=== PATIENT | female | born 1955 | race Caucasian/White ===

== ENCOUNTER → 2016-10-24 | Outpatient (CLI) | payer BC ==
[~2016-10-24] MED LIST: ALBU1AER9 INH; AMIT25TA9 PO; AMIT50TA3 PO; AMT/50 PO; AMT50 PO; BUPR100T13 PO; BUPR100T8 PO; CPR500 PO; ENAL10TA9 PO; ENALAPRIL HCTZ PO; ENALAPRIL/HCTZ PO; ESOM1CAP34 PO; FLUO1TAB12 PO; FLUO40CA8 PO; LEVO125T5 PO; LEVO125T72 PO; MTR500 PO; MULT-506 PO; OMEP40CA PO; PHEN10CA3 PO; PROAIR INH; ROPI0.25 PO; ROPI0.5T15 PO; RQP25 PO; TRAM-10 PO
--- NOTE | 2016-10-24 12:17 | DIAGNOSTIC IMAGING REPORT ---
LEFT HAND 3 VIEWS CLINICAL HISTORY: Left thumb pain. No reported history of trauma. FINDINGS: 3 views of the left hand are obtained. No prior studies are available for comparison at the time of dictation. The skeletal structures are osteopenic. No fracture is seen. Mild arthritic change is present at the first carpometacarpal and metacarpophalangeal joints. Minimal osteoarthritic changes also seen at the second distal interphalangeal joint. No bony erosion is identified. The joint spaces are otherwise preserved. The overlying soft tissues are within normal limits. IMPRESSION: 1. No acute bony abnormality is seen in the left hand. 2. Osteopenia and mild arthritic change as above. Electronically signed by: Giorgio Watson M.D. 10/24/2016 12:15 PM Dictated Date/Time: 10/24/2016 12:14 PM
[2016-10-24 13:02] LABS: RHEUMATOID FACTOR < 10.0 U/mL (0-15)
[2016-10-29 02:28] LABS: ANTI-CENTROMERE AB <1.0 NEG AI (<1.0 NEG); ANTI-SS-A <1.0 NEG AI (<1.0 NEG); ANTI-SS-B <1.0 NEG AI (<1.0 NEG); CYCLIC CITRULLINATED PEPT IGG <16 UNITS (<20); DNA ds CRITHIDIA NEGATIVE (NEGATIVE); Sm Antibody <1.0 NEG AI (<1.0 NEG)
== END | disposition home or self-care (01) ==
LOC: C.RAD1850 11:03
PROVIDERS: ATTEND Internal Medicine Rheumatology
DX: R76.8 Other specified abnormal immunological findings in serum (principal); M79.645 Pain in left finger(s); M35.9 Systemic involvement of connective tissue, unspecified

== ENCOUNTER 2016-11-16 21:46 | Inpatient (IN) | payer BC, OTHER ==
[~2016-11-16] VITALS: Ht 162.6 cm; Wt 148.0 kg
[~2016-11-16 21:46] MED LIST changes: -AMIT25TA9 PO; -AMIT50TA3 PO; -AMT/50 PO; -BUPR100T13 PO; -CPR500 PO; -ENAL10TA9 PO; -ENALAPRIL HCTZ PO; -ESOM1CAP34 PO; -FLUO1TAB12 PO; -LEVO125T72 PO; -MTR500 PO; -PHEN10CA3 PO; -PROAIR INH; -ROPI0.25 PO; -RQP25 PO
[2016-11-16] MEDS ORDERED: ESOM1CAP34 PO (22:40)
[2016-11-16] MEDS ORDERED: RQP25 PO (22:40)
[2016-11-16] MEDS ORDERED: PHEN10CA3 PO (22:40)
[2016-11-16] MEDS ORDERED: PROAIR INH (22:40)
[2016-11-16] MEDS ORDERED: FLUO1TAB12 PO (22:40)
[2016-11-16] MEDS ORDERED: AMIT50TA3 PO (22:40)
[2016-11-16] MEDS ORDERED: BUPR100T13 PO (22:40)
[2016-11-16] MEDS ORDERED: ENAL10TA9 PO (22:40)
[2016-11-16] MEDS ORDERED: DiphenhydrAMINE HCL 50 MG/ML VIAL IV STA (22:43)
[2016-11-16] MEDS ORDERED: METHYLPREDNISOLONE 125 MG VIAL IV STA (22:43)
[2016-11-16] MEDS ORDERED: SODIUM CHLORIDE 0.9% 1000ML 1,000 ML, SODIUM CHLORIDE 0.9% 1000ML 1,000 ML IV ONE (22:45)
[2016-11-16] MEDS ORDERED: ROPI0.25 PO (22:56)
[2016-11-16] MEDS ORDERED: LEVO125T72 PO (22:59)
[2016-11-16 23:06] LABS: BASO % 0.2 %; BASO ABS # 0.03 K/uL (0-0.2); COMPLETE YES; EOS % 0.1 %; IG% 0.6 %; LYMPH % 15.1 %; LYMPH ABS # 2.81 K/uL (1.2-3.4); MEAN CELL VOLUME 89.9 fL (80-100); MEAN CORPUSCULAR HEMOGLOBIN 29.8 pg (25-34); MEAN CORPUSCULAR HGB CONC 33.1 g/dl (32-36); MEAN PLATELET VOLUME 9.1 fL (7.4-10.4); MONO % 6.1 %; NEUT % 77.9 %; PLATELET COUNT 370 K/uL (130-400); RED BLOOD COUNT 4.67 M/uL (4.2-5.4); WHITE BLOOD COUNT 18.65 K/uL (4.8-10.8)
[2016-11-16 23:20] LABS: URINE APPEARANCE TURBID (CLEAR); URINE COLOR DK YELLOW; URINE EPITHELIAL CELL AUTO >30 /lpf (0-5); URINE NITRITE NEG (NEG); URINE SPECIFIC GRAVITY 1.027 (1.000-1.030); UROBILINOGEN NEG (NEG); ZZUR CULT IF INDIC CLEAN CATCH YES
[2016-11-16 23:26] LABS: MANUAL MICROSCOPIC REQUIRED? NO; REVIEW REQ? YES; URINE BILIRUBIN NEG (NEG)
[2016-11-16 23:26] LABS: BUN/CREATININE RATIO 22.7 (10-20); CALCIUM 9.1 mg/dl (8.5-10.1); CREATININE 1.5 mg/dl (0.60-1.20); POTASSIUM 4.3 mmol/L (3.5-5.1)
[2016-11-16 23:28] LABS: ALB/GLOB RATIO 0.8 (0.9-2); C-REACTIVE PROTEIN 2.11 mg/dl (0-0.29)
[2016-11-16 23:35] LABS: URINE PATH CASTS 0-3 GRANULAR CASTS /lpf (0)
[2016-11-17] MEDS ORDERED: PANTOprazole INJ 40 MG in SYRINGE 0 ML IV ONE (01:15)
[2016-11-17] MEDS ORDERED: ONDANSETRON INJ 2 MG/ML 2 ML VIAL IV PRN (02:15)
--- NOTE | 2016-11-17 03:11 | History and Physical ---
History & Physical Date & Time of Service: November 17, 2016 at 03:00 Chief Complaint: Pain In Front And Back And Bleeding Primary Care Physician: RV. Felipe MD History of Present Illness Source: patient, spouse The patient is a 61-year-old female with a known history of intolerance of Gopi lettuce, which she reports typically causes her to have loose stools after she eats it and then that's resolved. This time however when she that lettuce at [facility], she had worsening abdominal cramping than usual, and when she made it home she initially had fecal urgency and then did have a bowel movement that was bloody and has had persistent lower pelvic and rectal pain since. Her previous issues with intolerance to this lettuce does not involve blood. She's had no fevers or chills, chest pain or shortness of breath, nausea or vomiting, blood in urine. Social History Smoking Status: Never Smoker Smokeless Tobacco Use: No Alcohol Use: none Drug Use: none Marital Status: Housing status: lives with family Occupational Status: retired Multi-Drug Resistant Organisms History of MDRO: No Allergies Coded Allergies: CI Pigment Blue 63 (Verified Allergy, Unknown, swelling of lips, 01/13/16) Doxycycline (Verified Allergy, Unknown, GI UPSET, 01/13/16) Per PCP note Duloxetine (Verified Allergy, Unknown, swelling, 01/13/16) Oxycodone (Verified Adverse Reaction, Mild, NAUSEA, 01/13/16) Home Medications Scheduled Amitriptyline Hcl (Amitriptyline Hcl), 50 MG PO HS Bupropion Hcl (Wellbutrin), 100 MG PO DAILY Enalapril Maleate & Hydrochlor (Enalapril Maleate/Hydroch), 1 TAB PO DAILY Esomeprazole Magnesium (Esomeprazole Magnesium), 40 MG PO DAILY Fluoxetine Hcl (Fluoxetine Hcl), 20 MG PO DAILY Levothyroxine Sodium (Levothyroxine Sodium), 1 TAB PO 6XWK Levothyroxine Sodium (Synthroid), 0.5 TAB PO SATDAYS Multivitamin (Multivitamin), 1 TAB PO QAM Ropinirole (Requip), 0.5 MG PO QPM Scheduled PRN Ropinirole HCl (Ropinirole HCl), 0.25 MG PO DAILY PRN for RESTLESS LEGS [Proair], 2 PUFFS INH Q4 PRN for SOB/Wheezing Review of Systems Constitutional: No chills, No fatigue, No fever, No problem reported, No sweats , No weakness, No weight loss Eyes: No diplopia, No discharge, No eye pain, No problem reported, No redness, No worsening of vision ENT: No dental problems, No hearing loss, No nasal symptoms, No problem reported, No sore throat, No tinnitus, No trouble swallowing, No unusual epistaxis Respiratory: No cough, No dyspnea at rest, No dyspnea on exertion, No hemoptysis, No problem reported, No shortness of breath, No sputum, No wheezing Cardiovascular: No PND, No chest pain, No claudication, No edema, No orthopnea , No palpitations, No problem reported Abdomen: + GI bleeding (hematochezia 1), + pain (lower pelvic and rectal pain after hematochezia), No constipation, No diarrhea, No nausea, No vomiting Musculoskeletal: No calf pain, No joint pain, No muscle pain, No problem reported, No swelling Genitourinary - Female: No dysmenorrhea, No dysuria, No hematuria, No menorrhagia, No metrorrhagia, No , No problem reported, No rash, No urinary frequency, No urinary incontinence, No urinary retention, No urinary urgency, No vaginal bleeding, No vaginal discharge, No vaginal itching, No vulvodynia Neurologic: No balance problems, No memory loss, No numbness/tingling, No paralysis, No problem reported, No vertigo, No weakness Psychiatric: No anhedonism, No anxiety, No depression symptoms, No insomnia, No problem reported, No substance abuse Endocrine: No excessive thirst, No excessive urination, No fatigue, No problem reported Hematologic / Lymphatic: + abnormal bleeding/bruising (rectal bleeding as noted above), No clotting problems, No night sweats, No problem reported, No swollen lymph nodes Integumentary: No bleeding, No color change, No itch, No new/changing skin lesions, No problem reported, No rash Allergic / Immunologic: + food allergies (food sensitivity is to Gopi lettuce.), No environmental allergies, No frequent infections, No hives, No pet sensitivities, No poor healing, No problem reported, No prolonged convalescence , No seasonal allergies Physical Exam Vital Signs Date Time Temp Pulse Resp B/P Pulse Ox O2 Delivery O2 Flow Rate FiO2 11/17/16 01:54 80 18 109/93 93 Room Air 11/17/16 00:04 96 20 106/59 95 Room Air 11/16/16 21:58 36.3 88 20 104/71 92 Room Air General Appearance: WD/WN, no apparent distress Head: normocephalic, atraumatic Eyes: normal inspection, PERRL, EOMI, sclerae normal ENT: normal ENT inspection, hearing grossly normal, pharynx normal Neck: supple, no adenopathy, thyroid normal, no JVD, no carotid bruits Respiratory/Chest: chest non-tender, lungs clear, normal breath sounds, no respiratory distress, no accessory muscle use Cardiovascular: regular rate, rhythm, no edema, no gallop, no JVD, no murmur, normal peripheral pulses Abdomen/GI: normal bowel sounds, non tender, soft, no organomegaly, no pulsatile mass Back: normal inspection, no CVA tenderness, no muscle spasm, normal range of motion Extremities/Musculoskelatal: normal inspection, no calf tenderness, normal capillary refill, no pedal edema, normal range of motion, non-tender Neurologic/Psych: frame cleaner II-XII nml as tested, no motor/sensory deficits, alert, normal mood/affect, normal reflexes, oriented x 3 Skin: normal color, warm/dry, no rash Lymphatic: no adenopathy Diagnostics Laboratory Results Results Past 24 Hours Test 11/16/16 22:50 11/16/16 23:05 Range/Units White Blood Count 18.65 4.8-10.8 K/uL Red Blood Count 4.67 4.2-5.4 M/uL Hemoglobin 13.9 12.0-16.0 g/dL Hematocrit 42.0 37-47 % Mean Corpuscular Volume 89.9 80-100 fL Mean Corpuscular Hemoglobin 29.8 25-34 pg Mean Corpuscular Hemoglobin Concent 33.1 32-36 g/dl Platelet Count 370 130-400 K/uL Mean Platelet Volume 9.1 7.4-10.4 fL Neutrophils (%) (Auto) 77.9 % Lymphocytes (%) (Auto) 15.1 % Monocytes (%) (Auto) 6.1 % Eosinophils (%) (Auto) 0.1 % Basophils (%) (Auto) 0.2 % Neutrophils # (Auto) 14.54 1.4-6.5 K/uL Lymphocytes # (Auto) 2.81 1.2-3.4 K/uL Monocytes # (Auto) 1.13 0.11-0.59 K/uL Eosinophils # (Auto) 0.02 0-0.5 K/uL Basophils # (Auto) 0.03 0-0.2 K/uL RDW Standard Deviation 46.7 36.4-46.3 fL RDW Coefficient of Variation 14.2 11.5-14.5 % Immature Granulocyte % (Auto) 0.6 % Immature Granulocyte # (Auto) 0.12 0.00-0.02 K/uL Erythrocyte Sedimentation Rate 74 0-21 mm/hr Sodium Level 135 136-145 mmol/L Potassium Level 4.3 3.5-5.1 mmol/L Chloride Level 96 98-107 mmol/L Carbon Dioxide Level 29 21-32 mmol/L Anion Gap 10.0 3-11 mmol/L Blood Urea Nitrogen 34 7-18 mg/dl Creatinine 1.50 0.60-1.20 mg/dl Est Creatinine Clear Calc Drug Dose 58.7 ml/min Estimated GFR () 43.7 Estimated GFR (Non- 37.7 BUN/Creatinine Ratio 22.7 10-20 Random Glucose 109 70-99 mg/dl Calcium Level 9.1 8.5-10.1 mg/dl Total Bilirubin 0.4 0.2-1 mg/dl Aspartate Amino Transf (AST/SGOT) 13 15-37 U/L Alanine Aminotransferase (ALT/SGPT) 22 12-78 U/L Alkaline Phosphatase 97 45-117 U/L C-Reactive Protein 2.11 0-0.29 mg/dl Total Protein 8.5 6.4-8.2 gm/dl Albumin 3.9 3.4-5.0 gm/dl Globulin 4.6 2.5-4.0 gm/dl Albumin/Globulin Ratio 0.8 0.9-2 Lipase 138 73-393 U/L Urine Color DK YELLOW Urine Appearance TURBID CLEAR Urine pH 5.0 4.5-7.5 Urine Specific [place] 1.027 1.000-1.030 Urine Protein 1+ NEG Urine Glucose (UA) NEG NEG Urine Ketones TRACE NEG Urine Occult Blood 3+ NEG Urine Nitrite NEG NEG Urine Bilirubin NEG NEG Urine Urobilinogen NEG NEG Urine Leukocyte Esterase MODERATE NEG Urine WBC (Auto) 10-30 0-5 /hpf Urine RBC (Auto) >30 0-4 /hpf Urine Hyaline Casts (Auto) 10-30 0-5 /lpf Urine Epithelial Cells (Auto) >30 0-5 /lpf Urine Bacteria (Auto) 2+ NEG Urine Pathogenic Casts 0-3 GRANULAR CASTS 0 /lpf Microbiology Results 11/16/16 C.difficile Toxin B Gene (PCR) - Final, Complete No C. difficile toxin B gene detected 11/16/16 Shiga Toxin Test, Received Pending 11/16/16 Stool Culture, Received Pending 11/16/16 Urine Culture, Received Pending Impression Assessment and Plan Hematochezia with persistent lower pelvic and rectal discomfort--the patient had a more intense and bloody bowel movement than usual after ingestion of arin lettuce. Her sedimentation rate is elevated at 74 and white blood cell count is elevated 18.65, which would bring concerns regarding diverticulitis, the CT of the abdomen and pelvis was not suggestive of this diagnosis. She'll be placed on Cipro and Flagyl IV, kept nothing by mouth except medications, placed on IV fluids, Zofran IV for nausea, Protonix IV for acid reduction. We' ll consult gastroenterology see patient in the a.m. Follow serial laboratories. Acute renal insufficiency--creatinine on admission labs is 1.5, with previous creatinine being 0.63 on December 2015. We will hold enalapril and HCTZ. GERD--change Nexium to pantoprazole. Hypothyroidism--continue levothyroxine 125 g by mouth Saturday through . Depression/anxiety--continue fluoxetine 20 mg by mouth daily and bupropion 100 mg by mouth daily. Hold amitriptyline 50 mg by mouth at bedtime. Restless leg syndrome--continue ropinirole 0.5 mg by mouth every afternoon. Level of Care Telemetry Advanced Directives Existing Advance Directive: No Existing Living Will: No Existing Power of Diving Coach: No Resuscitation Status FULL RESUSCITATION VTE Prophylaxis VTE Risk Assessment Done? Y/N: Yes Risk Level: Moderate Given or contraindicated: SCD's Social Service Consult None Apply
[2016-11-17] MEDS: SODIUM CHLORIDE 0.9% 1000ML 1,000 ML IV SCH ×2 (03:34→13:21)
[2016-11-17] MEDS: METRONIDAZOLE / NSS 500 MG in PREMIXED NSS 100 ML IV SCH ×3 (03:39→20:10)
[2016-11-17 03:52] VITALS: BP 133/83; PULSE 83; TEMP 36.3; O2SAT 93; Ht 162.6 cm; Wt 148.0 kg
--- NOTE | 2016-11-17 05:43 | DIAGNOSTIC IMAGING REPORT ---
ABDOMEN AND PELVIS CT WITHOUT CONTRAST CT DOSE: 2314.60 mGy.cm HISTORY: abd cramping. diarrhea. Elevated wbc TECHNIQUE: Multiaxial CT images of the abdomen and pelvis were performed without contrast. COMPARISON STUDY: None. FINDINGS: The lung bases are clear. The unenhanced liver, spleen, gallbladder, pancreas, kidneys, and adrenal glands are within normal limits. No bowel wall thickening or obstruction. The pelvic organs are unremarkable. No suspicious lytic or blastic osseous lesions. Nonobstructive bowel pattern. Cholecystectomy. Normal appendix. Prior hysterectomy. IMPRESSION: No significant abnormality identified within the abdomen or pelvis. Electronically signed by: Brant Jolly M.D. 11/17/2016 5:41 AM Dictated Date/Time: 11/17/2016 5:40 AM
[2016-11-17 05:48] LABS: HEMATOCRIT 38.5 % (37-47); MEAN CELL VOLUME 88.9 fL (80-100); MEAN CORPUSCULAR HGB CONC 33.8 g/dl (32-36); MEAN PLATELET VOLUME 9.1 fL (7.4-10.4); PLATELET COUNT 319 K/uL (130-400); RED BLOOD COUNT 4.33 M/uL (4.2-5.4); WHITE BLOOD COUNT 18.22 K/uL (4.8-10.8)
[2016-11-17] MEDS: LEVOTHYROXINE 125 MCG TAB PO SCH (05:51)
[2016-11-17] MEDS: ACETAMINOPHEN IV 100 ML IV PRN ×2 (05:57→15:44)
[2016-11-17 06:13] LABS: CALCIUM 8.4 mg/dl (8.5-10.1); CREATININE 1.2 mg/dl (0.60-1.20); MAGNESIUM 1.9 mg/dl (1.8-2.4); POTASSIUM 4.4 mmol/L (3.5-5.1)
[2016-11-17 06:30] LABS: BASO % 0.1 %; BASO ABS # 0.01 K/uL (0-0.2); COMPLETE YES; EOS % 0.1 %; IG% 0.4 %; LYMPH ABS # 1.83 K/uL (1.2-3.4); MONO % 0.5 %; NEUT % 88.9 %
[2016-11-17 07:30] VITALS: BP 115/79; PULSE 83; TEMP 36.3; O2SAT 94
[2016-11-17] MEDS: FLUOXETINE HCL 20 MG CAP PO SCH (08:12)
--- NOTE | 2016-11-17 09:42 | GASTROINTESTINAL CONSULTATION ---
DATE OF CONSULTATION: 11/17/2016 REQUESTING PHYSICIAN: Dr. Berman. CHIEF COMPLAINT: Hematochezia. HISTORY OF PRESENT ILLNESS: The patient is a 61-year-old female who presented to the Emergency Room last evening with a complaint of hematochezia. The patient states she was in her usual state of health until yesterday when she had some food intolerances, followed by diarrhea. She notes that she developed crampy abdominal discomfort in her low abdomen, followed by a loose to liquid bowel movement associated with some bleeding. This occurred on several different occasions over that evening and brought her into the Emergency Room for further evaluation. She notes that since admission, the symptoms seem to be slowly improving and the amount of blood with her bowel movements seems to be decreasing. The patient's past medical history is notable for vocal cord paralysis, depression, reflux, and restless legs syndrome. She denies having difficulty swallowing, pain with swallowing, fevers, chills, or sweats. She has never had a colonoscopy and does not recall family history of colorectal cancer. SOCIAL HISTORY: Nonsmoker. Denies alcohol use. The patient is , lives at home. ALLERGIES: DOXYCYCLINE, DULOXETINE, OXYCODONE. OUTPATIENT MEDICATIONS: 1. Amitriptyline 50 mg daily. 2. Wellbutrin 100 mg daily. 3. Enalapril 1 tablet daily. 4. Nexium 40 mg daily. 5. Fluoxetine 20 mg daily. 6. Levothyroxine 0.5 mg daily. 7. Multivitamin. 6. Ropinirole which is Requip 0.5 mg at bedtime. PAST SURGICAL HISTORY: Hysterectomy, knee replacement. PAST MEDICAL PROBLEMS: Depression, hypertension, hypothyroidism, vocal cord paralysis. REVIEW OF SYSTEMS: CONSTITUTIONAL: No chills. No fatigue. EYES: No diplopia, no discharge. ENT: No dental problems. No hearing loss. RESPIRATORY: No cough, no shortness of breath. CARDIOVASCULAR: No chest pain. GASTROINTESTINAL: Please see history of present illness. MUSCULOSKELETAL: No calf pain or joint pain. GENITOURINARY: No dysuria. NEUROLOGIC: No double vision noted. No headache. PSYCHIATRIC: No worsening depression or suicidal ideation. ENDOCRINE: No excessive thirst or urination. HEMATOLOGIC: No history of abnormal bleeding. DERMATOLOGIC: No rashes, no itching. PHYSICAL EXAMINATION: VITAL SIGNS: Temperature is 36.3, pulse 83, respiratory rate 16, blood pressure 115/79. HEENT: No scleral icterus noted. No JVD noted. LUNGS: Clear to auscultation. CARDIAC: Systolic murmur heard without rub. ABDOMEN: Morbidly obese. Mild tenderness noted in the low abdomen. EXTREMITIES: No edema noted. DERMATOLOGIC: No spider nevi noted. LABORATORY DATA: White blood cell count is 18.2, hemoglobin is 13, hematocrit is 38.5, platelet count is 319. Chemistry: Sodium 134, potassium 4.4, BUN 32, creatinine 1.2, calcium 8.4, total bilirubin 0.4, AST 13, ALT 22, alkaline phosphatase 97, albumin 3.9, lipase 138. IMAGING: CT dated 11/16/2016 noncontrast study, no significant abnormalities noted. IMPRESSION: A 61-year-old morbidly obese female presenting with abdominal cramping, followed by hematochezia. The symptoms are most reminiscent of ischemic colitis. Given her white count is over 15, would agree with continued use of antibiotics for a 14-day course. Would also suggest follow up on her stool studies which should have included a C. diff and stool culture. RECOMMENDATION: 1. Stool cultures requested by internal medicine. 2. Continue with IV antibiotics and IV hydration. 3. If bleeding persists, we could consider further evaluation with colonoscopy early next week. Otherwise, the patient would most benefit from a delayed colonoscopy in 6-8 weeks. 4. Please call with any questions or concerns.
[2016-11-17 10:22] VITALS: BP 115/79; PULSE 83; TEMP 36.3; O2SAT 94
[2016-11-17] MEDS: PANTOprazole INJ 40 MG in SYRINGE 0 ML IV SCH (11:03)
[2016-11-17 11:29] VITALS: BP 122/80; PULSE 81; TEMP 36.8; O2SAT 95
[2016-11-17 15:50] VITALS: BP 124/82; PULSE 84; TEMP 36.6; O2SAT 93
[2016-11-17] MEDS: ROPINIROLE HCL 0.25 MG TAB PO SCH (20:10)
[2016-11-17 23:03] VITALS: BP 134/79; PULSE 84; TEMP 36.5; O2SAT 93
--- NOTE | 2016-11-17 23:40 | EMERGENCY ROOM VISIT NOTE ---
History First contact with patient: 22:31 Chief Complaint: ABDOMINAL PAIN Stated Complaint: ACUTE RENAL INSUFFICIENCY; HEMATOCHEZIA Nursing Triage Summary: Pt ate at red lobster. Had fish and salad. Immediately had diarhea after eating. Complaining of lower abdominal pain and 12x diarrhea. Noted humble blood twice in toilet and tenderness when wiping. Pt also reports she stopped taking a diet pill today that she had been taking for 1 mo. Reported constipation while taking diet pill. History of Present Illness The patient is a 61 year old female who presents to the Emergency Room with complaints of abdominal cramping and diarrhea 12 episodes. The patient states that she was feeling well earlier today, but had red lobster for late lunch. She states that one to 2 hours later she started developing her symptoms. She now notes that she has humble red blood in her stool when using the bathroom. She has not had fever or chills. She does sometimes have difficulty when eating red lobster, but she has never had anything to this point. She does not have chest pain, chest tightness, shortness of breath, rash, or throat pain/ swelling. She has not taken anything [id number] for her symptoms. She rates her discomfort an 8/10. Review of Systems More than 10 systems were reviewed and otherwise negative with the exception of history of present illness. Past Medical/Surgical History Medical Problems: (1) Acute renal insufficiency (2) Hematochezia Family History No pertinent family history Social History Smoking Status: Never Smoker Smokeless Tobacco Use: No Alcohol Use: none Drug Use: none Marital Status: Occupation Status: retired Current/Historical Medications Scheduled Amitriptyline Hcl (Amitriptyline Hcl), 50 MG PO HS Bupropion Hcl (Wellbutrin), 100 MG PO DAILY Enalapril Maleate & Hydrochlor (Enalapril Maleate/Hydroch), 1 TAB PO DAILY Esomeprazole Magnesium (Esomeprazole Magnesium), 40 MG PO DAILY Fluoxetine Hcl (Fluoxetine Hcl), 20 MG PO DAILY Levothyroxine Sodium (Levothyroxine Sodium), 1 TAB PO 6XWK Levothyroxine Sodium (Synthroid), 0.5 TAB PO FRIDAYS Multivitamin (Multivitamin), 1 TAB PO QAM Ropinirole (Requip), 0.5 MG PO QPM Scheduled PRN Ropinirole HCl (Ropinirole HCl), 0.25 MG PO DAILY PRN for RESTLESS LEGS [Proair], 2 PUFFS INH Q4 PRN for SOB/Wheezing Allergies Coded Allergies: CI Pigment Blue 63 (Verified Allergy, Unknown, swelling of lips, 01/13/16) Doxycycline (Verified Allergy, Unknown, GI UPSET, 01/13/16) Per PCP note Duloxetine (Verified Allergy, Unknown, swelling, 01/13/16) Oxycodone (Verified Adverse Reaction, Mild, NAUSEA, 01/13/16) Physical Exam Vital Signs Date Time Temp Pulse Resp B/P Pulse Ox O2 Delivery O2 Flow Rate FiO2 11/17/16 01:54 80 18 109/93 93 Room Air 11/17/16 00:04 96 20 106/59 95 Room Air 11/16/16 21:58 36.3 88 20 104/71 92 Room Air Pain Rating (0-10): 7.0 Physical Exam VITALS: Vitals are noted on the nurse's note and reviewed by myself. Vital signs stable. GENERAL: Well-developed, well-nourished, white female, who is moderately uncomfortable. HEAD: Normocephalic atraumatic. MOUTH: Mucous membranes moist. Tonsils are not enlarged. Pharynx without erythema, blood, or exudate. Uvula midline. Airway patent. NECK: Supple without nuchal rigidity. No lymphadenopathy. No thyromegaly. Cervical spine is nontender. HEART: Regular rate and rhythm without murmurs gallops or rubs. LUNGS: Clear to auscultation bilaterally without wheezes, rales or rhonchi. No retractions or accessory muscle use. ABDOMEN: Positive normal bowel sounds x 4. Soft with mild tenderness on examination. No rebound or guarding. No CVA tenderness. MUSCULOSKELETAL: No muscle atrophy, erythema, or edema noted. Full range of motion without joint tenderness in all extremities. Medical Decision & Procedures ER Provider Diagnostic Interpretation: ABDOMEN AND PELVIS CT WITHOUT CONTRAST CT DOSE: 2314.60 mGy.cm HISTORY: abd cramping. diarrhea. Elevated wbc TECHNIQUE: Multiaxial CT images of the abdomen and pelvis were performed without contrast. COMPARISON STUDY: None. FINDINGS: The lung bases are clear. The unenhanced liver, spleen, gallbladder, pancreas, kidneys, and adrenal glands are within normal limits. No bowel wall thickening or obstruction. The pelvic organs are unremarkable. No suspicious lytic or blastic osseous lesions. Nonobstructive bowel pattern. Cholecystectomy. Normal appendix. Prior hysterectomy. IMPRESSION: No significant abnormality identified within the abdomen or pelvis. Laboratory Results Test 11/16/16 22:50 11/16/16 23:05 Erythrocyte Sedimentation Rate 74 mm/hr (0-21) Total Bilirubin 0.4 mg/dl (0.2-1) Aspartate Amino Transf (AST/SGOT) 13 U/L (15-37) Alanine Aminotransferase (ALT/SGPT) 22 U/L (12-78) Alkaline Phosphatase 97 U/L (45-117) C-Reactive Protein 2.11 mg/dl (0-0.29) Total Protein 8.5 gm/dl (6.4-8.2) Albumin 3.9 gm/dl (3.4-5.0) Globulin 4.6 gm/dl (2.5-4.0) Albumin/Globulin Ratio 0.8 (0.9-2) Lipase 138 U/L (73-393) Urine Color DK YELLOW Urine Appearance TURBID (CLEAR) Urine pH 5.0 (4.5-7.5) Urine Specific [place] 1.027 (1.000-1.030) Urine Protein 1+ (NEG) Urine Glucose (UA) NEG (NEG) Urine Ketones TRACE (NEG) Urine Occult Blood 3+ (NEG) Urine Nitrite NEG (NEG) Urine Bilirubin NEG (NEG) Urine Urobilinogen NEG (NEG) Urine Leukocyte Esterase MODERATE (NEG) Urine WBC (Auto) 10-30 /hpf (0-5) Urine RBC (Auto) >30 /hpf (0-4) Urine Hyaline Casts (Auto) 10-30 /lpf (0-5) Urine Epithelial Cells (Auto) >30 /lpf (0-5) Urine Bacteria (Auto) 2+ (NEG) Urine Pathogenic Casts 0-3 GRANULAR CASTS /lpf (0) Date/Time Source Procedure Growth Status 11/16/16 23:30 Stool C.difficile Toxin B Gene (PCR) - Final No C. difficile toxin B gene detected Complete Medications Administered Medications (Trade) Dose Ordered Sig/Naomy Route Start Time Stop Time Status Last Admin Dose Admin Sodium Chloride/ Sodium Chloride (Nss 1000ml/Nss 1000ml) 2,000 ml @ 999 mls/hr Q2H1M ONCE IV 11/16/16 22:45 11/17/16 00:45 DC 11/16/16 23:05 999 MLS/HR Diphenhydramine HCl (Benadryl Inj) 25 mg NOW STAT IV 11/16/16 22:43 11/16/16 22:45 DC 11/16/16 23:05 25 MG Methylprednisolone Sodium Succinate 125 mg 125 mg NOW STAT IV 11/16/16 22:43 11/16/16 22:45 DC 11/16/16 23:05 125 MG Pantoprazole Sodium/Syringe (Protonix Inj/ Syringe) 10 ml @ 5 mls/min NOW ONCE IV 11/17/16 01:15 11/17/16 01:16 DC 11/17/16 01:51 5 MLS/MIN ED Course Physical exam and history were performed. Nursing notes and EMR were reviewed. Patient appears to have abdominal cramping with blood in her stool. IV access was established and labs were obtained. Patient was hydrated and medicated as above. There was concern that her symptoms may represent an allergic reaction to food, and I felt that Solu-Medrol and Benadryl may help with her symptoms. She was able to give a stool sample which is sent to lab for further testing. There was gross blood in her stool. She was given IV Protonix. The patient blood work is as above and was reviewed. She does have a markedly elevated white blood cell count of greater than 18,000. Additionally her inflammatory markers are elevated as well. Lipase and transaminases are nondiagnostic. Her C. difficile was negative. Her creatinine is increased from baseline suggestive of acute kidney insufficiency. Because of her symptoms and elevated white blood cell count I did feel that a CT scan of the abdomen was necessary. This was performed and is as above. There does not appear to be an acute process on noncontrast study. Reevaluation the patient continued to have some abdominal discomfort. Seeing that she has blood in her stool and elevated white blood cell count I did not feel the patient was safe for discharge home. The case was discussed with the on-call hospitalist who agreed to evaluate the patient here in the department. Please see their dictation for further patient course, plan, and disposition. The chart was completed utilizing [employer] Voice Recognition Software. Grammatical errors, random word insertions, pronoun errors, and incomplete sentences are an occasional consequence of this system due to software limitations, ambient noise, and hardware issues. Any formal questions or concerns about the content, text, or information contained within the body of this dictation should be directly addressed to the provider for clarification. . Medical Decision Differential diagnosis: Etiologies such as appendicitis, diverticulitis, PUD, biliary pathology, UTI, pancreatitis, obstruction, mesenteric ischemia, aortic pathology, infections, inflammatory bowel disease, renal colic, as well as others were entertained. Impression Primary Impression: Abdominal cramping Additional Impressions: Blood in stool Renal insufficiency Departure Information Dispostion Still a Patient Condition FAIR Referrals RV. Felipe MD (PCP) Forms Call Back Authorization, HOME CARE DOCUMENTATION FORM, IMPORTANT VISIT INFORMATION Patient Instructions [facility] Problem Qualifiers
[2016-11-18] MEDS: ACETAMINOPHEN IV 100 ML IV PRN ×3 (00:55→21:09)
[2016-11-18] MEDS: SODIUM CHLORIDE 0.9% 1000ML 1,000 ML IV SCH ×3 (00:55→19:23)
[2016-11-18] MEDS: METRONIDAZOLE / NSS 500 MG in PREMIXED NSS 100 ML IV SCH ×3 (04:18→19:23)
[2016-11-18 05:49] LABS: BASO % 0.1 %; BASO ABS # 0.01 K/uL (0-0.2); COMPLETE YES; EOS % 0.2 %; IG% 0.4 %; LYMPH % 20.9 %; LYMPH ABS # 3.89 K/uL (1.2-3.4); MEAN CORPUSCULAR HGB CONC 33.3 g/dl (32-36); MEAN PLATELET VOLUME 9.2 fL (7.4-10.4); MONO % 6.5 %; NEUT % 71.9 %; PLATELET COUNT 297 K/uL (130-400); WHITE BLOOD COUNT 18.57 K/uL (4.8-10.8)
[2016-11-18 06:23] LABS: BUN/CREATININE RATIO 23.9 (10-20); CREATININE 0.79 mg/dl (0.60-1.20); POTASSIUM 3.6 mmol/L (3.5-5.1)
[2016-11-18] MEDS: LEVOTHYROXINE 125 MCG TAB PO SCH (06:36)
[2016-11-18 07:06] VITALS: BP 112/73; PULSE 72; TEMP 36.3; O2SAT 93
[2016-11-18] MEDS: FLUOXETINE HCL 20 MG CAP PO SCH (07:35)
[2016-11-18] MEDS: CIPROFLOXACIN / D5W 400 MG in PREMIXED IN D5W 200 ML IV SCH ×2 (08:06→21:30)
[2016-11-18] MEDS: PANTOprazole INJ 40 MG in SYRINGE 0 ML IV SCH (11:09)
--- NOTE | 2016-11-18 12:20 | Progress Note ---
Subjective Date of Service: November 18, 2016. Subjective Pt evaluation today including: conversation w/ patient, physical exam, chart review, lab review, review of studies, review of inpatient medication list Pt resting comfortably in bed States having mucousy stools this AM, no blood in stools States abd cramping and suprapubic pain is about the same No nausea or vomiting or acute events overnight Problem List Medical Problems: (1) Abdominal cramping Status: Acute (2) Blood in stool Status: Acute (3) Renal insufficiency Status: Acute Review of Systems Constitutional: No chills, No fever Respiratory: No cough, No dyspnea on exertion, No shortness of breath, No wheezing Cardiac: No chest pain, No orthopnea Abdomen: + pain, No constipation, No diarrhea, No nausea, No vomiting Musculoskeletal: No joint pain, No muscle pain Female : No dysuria, No urinary frequency Objective Vital Signs Date Time Temp Pulse Resp B/P Pulse Ox O2 Delivery O2 Flow Rate FiO2 11/18/16 07:42 Room Air 11/18/16 07:06 36.3 72 18 112/73 93 Room Air 11/17/16 23:59 Room Air 11/17/16 23:03 36.5 84 20 134/79 93 Room Air 11/17/16 20:00 Room Air 11/17/16 15:50 36.6 84 18 124/82 93 11/17/16 15:40 Room Air Physical Exam General Appearance: WD/WN, no apparent distress Neck: supple, no adenopathy Respiratory/Chest: lungs clear, normal breath sounds Cardiovascular: no edema, no gallop Abdomen: soft, + tenderness (suprapubic region) Neurologic/Psychiatric: alert, oriented x 3 Laboratory Results Last 24 Hours Test 11/18/16 05:11 White Blood Count 18.57 K/uL Red Blood Count 4.00 M/uL Hemoglobin 12.0 g/dL Hematocrit 36.0 % Mean Corpuscular Volume 90.0 fL Mean Corpuscular Hemoglobin 30.0 pg Mean Corpuscular Hemoglobin Concent 33.3 g/dl Platelet Count 297 K/uL Mean Platelet Volume 9.2 fL Neutrophils (%) (Auto) 71.9 % Lymphocytes (%) (Auto) 20.9 % Monocytes (%) (Auto) 6.5 % Eosinophils (%) (Auto) 0.2 % Basophils (%) (Auto) 0.1 % Neutrophils # (Auto) 13.36 K/uL Lymphocytes # (Auto) 3.89 K/uL Monocytes # (Auto) 1.20 K/uL Eosinophils # (Auto) 0.03 K/uL Basophils # (Auto) 0.01 K/uL RDW Standard Deviation 48.0 fL RDW Coefficient of Variation 14.6 % Immature Granulocyte % (Auto) 0.4 % Immature Granulocyte # (Auto) 0.08 K/uL Sodium Level 139 mmol/L Potassium Level 3.6 mmol/L Chloride Level 103 mmol/L Carbon Dioxide Level 29 mmol/L Anion Gap 7.0 mmol/L Blood Urea Nitrogen 19 mg/dl Creatinine 0.79 mg/dl Est Creatinine Clear Calc Drug Dose 111.4 ml/min Estimated GFR () 95.0 Estimated GFR (Non- 81.9 BUN/Creatinine Ratio 23.9 Random Glucose 93 mg/dl Calcium Level 8.0 mg/dl Magnesium Level 2.0 mg/dl Assessment and Plan Hematochezia/abdominal cramping -- Resolved since admission, however pt now having mucousy stools. Abd cramping persistent. ESR 74 upon admission, WBC persistently elevated at 18. Will cont cipro and flagyl at this time. CT abd/ pelvis unremarkable. GI consulted, appreciate recs, await stool cx. Cdiff neg. Acute renal insufficiency -- Resolving, Cr on admission labs is 1.5, with previous Cr being 0.63 on December 2015. We will hold enalapril and HCTZ. GERD -- Change Nexium to pantoprazole. Hypothyroidism -- Continue levothyroxine 125 g by mouth Saturday through . Depression/anxiety -- Continue fluoxetine 20 mg by mouth daily and bupropion 100 mg by mouth daily. Hold amitriptyline 50 mg by mouth at bedtime. Restless leg syndrome -- Continue ropinirole 0.5 mg by mouth every afternoon. DVT ppx with SCDs, chemical ppx contraindicated due to hematochezia on admission Pt is FULL CODE
--- NOTE | 2016-11-18 13:53 | Gastroenterology Progress Note ---
Progress Note Date of Service: November 18, 2016 Subjective Pt evaluation today including: conversation w/ patient, physical exam, chart review, lab review, review of studies, review of inpatient medication list Still with abd pain today but overall improving. Loose stool. Reports some blood with last BM. Old dark clot, no red blood. No nausea or vomiting. Tolerating liquids. No fevers. Persistent leukocytosis. Review of Systems 12 systems reviewed and negative except as noted Medications Current Inpatient Medications Medications (Trade) Dose Ordered Sig/Naomy Route Start Time Stop Time Status Last Admin Dose Admin Sodium Chloride (Nss 1000ml) 1,000 ml @ 100 mls/hr Q10H IV 11/17/16 03:30 12/17/16 03:29 11/18/16 07:36 100 MLS/HR Levothyroxine Sodium (Synthroid Tab) 125 mcg DAILYBB PO 11/17/16 06:00 12/17/16 06:59 11/18/16 06:36 125 MCG Ropinirole HCl 0.5 mg 0.5 mg QPM PO 11/17/16 21:00 12/17/16 20:59 11/17/16 20:10 0.5 MG Pantoprazole Sodium/Syringe (Protonix Inj/ Syringe) 10 ml @ 5 mls/min DAILY@11 IV 11/17/16 11:00 12/17/16 10:59 11/18/16 11:09 5 MLS/MIN Fluoxetine HCl (Prozac Cap) 20 mg QAM PO 11/17/16 09:00 12/17/16 08:59 11/18/16 07:35 20 MG Ondansetron HCl 4 mg 4 mg Q6H PRN IV 11/17/16 02:15 12/17/16 02:14 Acetaminophen 100 ml @ 400 mls/hr Q8H PRN IV 11/17/16 02:15 12/17/16 02:14 11/18/16 11:08 400 MLS/HR Metronidazole 500 mg/Prmx 100 ml @ 100 mls/hr Q8H IV 11/17/16 04:00 11/27/16 03:59 11/18/16 12:16 100 MLS/HR Ciprofloxacin/ Dextrose/Prmx (Cipro / D5w/ Premixed D5W) 200 ml @ 100 mls/hr Q12H IV 11/18/16 08:00 11/28/16 07:59 11/18/16 08:06 100 MLS/HR Objective Vital Signs Date Time Temp Pulse Resp B/P Pulse Ox O2 Delivery O2 Flow Rate FiO2 11/18/16 07:42 Room Air 11/18/16 07:06 36.3 72 18 112/73 93 Room Air 11/17/16 23:59 Room Air 11/17/16 23:03 36.5 84 20 134/79 93 Room Air 11/17/16 20:00 Room Air 11/17/16 15:50 36.6 84 18 124/82 93 11/17/16 15:40 Room Air Physical Exam General Appearance: WD/WN, no apparent distress Eyes: normal inspection, PERRL ENT: normal ENT inspection, hearing grossly normal, pharynx normal Neck: supple, no JVD Respiratory/Chest: chest non-tender, lungs clear, normal breath sounds, no accessory muscle use Cardiovascular: regular rate, rhythm, no murmur Abdomen: normal bowel sounds, soft, + tenderness (mild generalized tenderness) Extremities: normal range of motion, non-tender, normal inspection, no pedal edema Neurologic/Psych: journalists and other writers II-XII nml as tested, no motor/sensory deficits, alert, normal mood/affect, oriented x 3 Skin: normal color, no rash Laboratory Results Last 24 Hours Test 11/18/16 05:11 White Blood Count 18.57 K/uL Red Blood Count 4.00 M/uL Hemoglobin 12.0 g/dL Hematocrit 36.0 % Mean Corpuscular Volume 90.0 fL Mean Corpuscular Hemoglobin 30.0 pg Mean Corpuscular Hemoglobin Concent 33.3 g/dl Platelet Count 297 K/uL Mean Platelet Volume 9.2 fL Neutrophils (%) (Auto) 71.9 % Lymphocytes (%) (Auto) 20.9 % Monocytes (%) (Auto) 6.5 % Eosinophils (%) (Auto) 0.2 % Basophils (%) (Auto) 0.1 % Neutrophils # (Auto) 13.36 K/uL Lymphocytes # (Auto) 3.89 K/uL Monocytes # (Auto) 1.20 K/uL Eosinophils # (Auto) 0.03 K/uL Basophils # (Auto) 0.01 K/uL RDW Standard Deviation 48.0 fL RDW Coefficient of Variation 14.6 % Immature Granulocyte % (Auto) 0.4 % Immature Granulocyte # (Auto) 0.08 K/uL Sodium Level 139 mmol/L Potassium Level 3.6 mmol/L Chloride Level 103 mmol/L Carbon Dioxide Level 29 mmol/L Anion Gap 7.0 mmol/L Blood Urea Nitrogen 19 mg/dl Creatinine 0.79 mg/dl Est Creatinine Clear Calc Drug Dose 111.4 ml/min Estimated GFR () 95.0 Estimated GFR (Non- 81.9 BUN/Creatinine Ratio 23.9 Random Glucose 93 mg/dl Calcium Level 8.0 mg/dl Magnesium Level 2.0 mg/dl Assessment and Plan 61 yo female admitted with bloody diarrhea which was preceded by crampy lower abdominal pain and non-bloody diarrhea. Symptoms are consistent with ischemic colitis. She has never had a colonoscopy. Her stool cultures and C diff are negative. Slowly improving. - Continue with conservative mgt. - Continue IVF hydration. Liquid diet. - IV antibiotics. - She will need a colonoscopy at some point. Ideally, as an outpatient, once she recovers from this acute event. - Follow labs.
[2016-11-18 15:20] VITALS: BP 106/67; PULSE 84; TEMP 36.5; O2SAT 97
[2016-11-18] MEDS: ROPINIROLE HCL 0.25 MG TAB PO SCH (21:08)
[2016-11-19 00:03] VITALS: BP 122/79; PULSE 85; TEMP 37.1; O2SAT 93
[2016-11-19] MEDS: METRONIDAZOLE / NSS 500 MG in PREMIXED NSS 100 ML IV SCH ×3 (04:10→19:56)
[2016-11-19] MEDS: LEVOTHYROXINE 125 MCG TAB PO SCH (06:16)
[2016-11-19] MEDS: SODIUM CHLORIDE 0.9% 1000ML 1,000 ML IV SCH ×2 (06:16→19:08)
[2016-11-19 06:19] LABS: BASO % 0.3 %; BASO ABS # 0.03 K/uL (0-0.2); COMPLETE YES; EOS % 0.8 %; HEMATOCRIT 35.7 % (37-47); IG% 0.4 %; LYMPH % 33.7 %; MEAN CELL VOLUME 91.5 fL (80-100); MEAN CORPUSCULAR HEMOGLOBIN 29.5 pg (25-34); MEAN CORPUSCULAR HGB CONC 32.2 g/dl (32-36); MONO % 6.8 %; PLATELET COUNT 271 K/uL (130-400); WHITE BLOOD COUNT 11.87 K/uL (4.8-10.8)
[2016-11-19 07:07] LABS: CREATININE 0.82 mg/dl (0.60-1.20); MAGNESIUM 1.8 mg/dl (1.8-2.4); POTASSIUM 3.6 mmol/L (3.5-5.1)
[2016-11-19 07:34] VITALS: BP 98/66; PULSE 71; TEMP 36.8; O2SAT 93
[2016-11-19] MEDS: CIPROFLOXACIN / D5W 400 MG in PREMIXED IN D5W 200 ML IV SCH ×2 (07:34→19:56)
[2016-11-19] MEDS: FLUOXETINE HCL 20 MG CAP PO SCH (07:34)
[2016-11-19] MEDS: ACETAMINOPHEN IV 100 ML IV PRN ×2 (07:38→20:58)
--- NOTE | 2016-11-19 09:25 | Clinical Documentation Query ---
Dr. MONIQUE LEAVITT, [facility]. : CLINICAL DOCUMENTATION QUERIES QUERY 1 OF 3 Patient is a 61 year old female admitted for evaluation and treatment of hematochezia and abdominal cramping. ESR 74, WBC 18.65, CRP 2.11 on admission. Stool cultures and C.Diff assay are negative. GI consultation suggested ischemic colitis as an etiology of presenting symptoms. This was not reiterated or documented as noted/agreed by attending. To avoid possible inspection engineer uncertainty at time of discharge, consider clarification as suggested below. Thank you. In your clinical opinion is this patient being managed for: ( ) Acute ischemic colitis ( x ) Other explanation of clinical findings (Please Explain) ( ) Unable to determine (Please Define) ( ) Need to Discuss ( ) Not Agree The medical record reflects the following clinical findings, treatment, and risk factors. Clinical Indicators:hematochezia and abdominal cramping. ESR 74, WBC 18.65, CRP 2.11 on admission. Stool cultures and C.Diff assay are negative. Treatment: IV hydration, IV antibiotics, GI consultation Risk Factors: Age, probable atherosclerosis, constipation QUERY 2 OF 3 Documentation includes "Acute renal insufficiency". To the professional inspection engineer, this does not equate with NOEL/acute renal failure. If this was the intent of this diagnostic statement, consider clarification as suggested below as this impacts DRG assignment. Thank you. In your clinical opinion is this patient being managed for: ( x ) Acute kidney failure ( ) Other explanation of clinical findings (Please Explain) ( ) Unable to determine (Please Define) ( ) Need to Discuss ( ) Not Agree The medical record reflects the following clinical findings, treatment, and risk factors. Clinical Indicators: As above Treatment: Serial chemistries, IVF, holding of enalapril and HCTZ Risk Factors: Age, diarrhea/intravascular volume depletion. QUERY 3 OF 3 BMI noted to be 56.0 kg/m*m. In order to capture this important clinical information, the associated diagnosis must be explicitly documented by the provider. In your clinical opinion is this patient: ( x ) Obese/overweight ( ) Other explanation of clinical findings (Please Explain) ( ) Unable to determine (Please Define) ( ) Need to Discuss ( ) Not Agree The medical record reflects the following clinical findings, treatment, and risk factors. Clinical Indicators: As above Treatment: CL diet Risk Factors: Caloric intake > Caloric expenditure. Clarification - BMI Reporting Coding [facility] [id number], p15 Question: There has been some confusion as to whether nursing staff documentation is acceptable for assigning BMI. Since hospitals are allowed to code the BMI based on the account support manager's documentation, it would seem reasonable to assign the BMI based on the nurse's documentation as well. Can coders use nursing documentation to assign the BMI? Answer: Yes, the BMI can be assigned based on medical record documentation from clinicians, including nurses and dieticians who are not the patient's provider. As stated in the Official Guidelines for Coding and Reporting, BMI code assignment may be based on medical record documentation from clinicians who are not the patient's provider, since this information is typically documented by other clinicians involved in the care of the patient. Dieticians were only mentioned as an example of a clinician that might document BMI information. However, the associated diagnosis (such as overweight, obesity, or underweight) must be documented by the provider. Please clarify and document your clinical opinion in the progress notes and discharge summary. Terms such as "probable", "suspected", "likely", "questionable", "possible", or "still to be ruled out" are acceptable. IF IN AGREEMENT, YOU MUST DOCUMENT ABOVE DIAGNOSTIC STATEMENT IN DAILY PROGRESS NOTES AND DISCHARGE SUMMARY. This document is not part of the patient's record. Thank You, Suresh Gonzalez, DIANNE [phone]
--- NOTE | 2016-11-19 10:38 | Gastroenterology Progress Note ---
Progress Note Date of Service: November 19, 2016 Subjective Pt evaluation today including: conversation w/ patient, physical exam, chart review, lab review, review of studies, review of inpatient medication list Ms. Samaniego is a 61 yr old female who presented 2 days ago with diffuse cramping abdominal pain, soon followed by bloody diarrhea. She continued with blood in stools, alteast until 7PM last night. Unsure if this morning's 0600 BM had blood (not documented and pt doesn't look), but daughter saw her mid day yesterday and there was still a significant amt of blood in that. WBC was 18 on arrival. Today, on Cipro/Flagyl, WBC is 11.8, and she is afebrile. Today pt is able to ambulate w/o help. She continues with lower abdomen mild cramping pain but no severe abdominal pain. Review of Systems Constitutional: No chills, No fever, No sweats, No weakness Respiratory: No cough Cardiac: No chest pain Abdomen: + GI bleeding, + diarrhea, + pain, No acolic stools, No constipation, No dark urine, No dysphagia, No jaundice, No nausea, No odynophagia, No vomiting Musculoskeletal: No joint pain Female : No dysuria Neuro: No memory loss Psych: No depression symptoms Heme: No abnormal bleeding/bruising Endo: No fatigue Skin: No rash Medications Current Inpatient Medications Medications (Trade) Dose Ordered Sig/Naomy Route Start Time Stop Time Status Last Admin Dose Admin Sodium Chloride (Nss 1000ml) 1,000 ml @ 100 mls/hr Q10H IV 11/17/16 03:30 12/17/16 03:29 11/19/16 06:16 100 MLS/HR Levothyroxine Sodium (Synthroid Tab) 125 mcg DAILYBB PO 11/17/16 06:00 12/17/16 06:59 11/19/16 06:16 125 MCG Ropinirole HCl 0.5 mg 0.5 mg QPM PO 11/17/16 21:00 12/17/16 20:59 11/18/16 21:08 0.5 MG Pantoprazole Sodium/Syringe (Protonix Inj/ Syringe) 10 ml @ 5 mls/min DAILY@11 IV 11/17/16 11:00 12/17/16 10:59 11/18/16 11:09 5 MLS/MIN Fluoxetine HCl (Prozac Cap) 20 mg QAM PO 11/17/16 09:00 12/17/16 08:59 11/19/16 07:34 20 MG Ondansetron HCl 4 mg 4 mg Q6H PRN IV 11/17/16 02:15 12/17/16 02:14 Acetaminophen 100 ml @ 400 mls/hr Q8H PRN IV 11/17/16 02:15 12/17/16 02:14 11/19/16 07:38 400 MLS/HR Metronidazole 500 mg/Prmx 100 ml @ 100 mls/hr Q8H IV 11/17/16 04:00 11/27/16 03:59 11/19/16 04:10 100 MLS/HR Ciprofloxacin/ Dextrose/Prmx (Cipro / D5w/ Premixed D5W) 200 ml @ 100 mls/hr Q12H IV 11/18/16 08:00 11/28/16 07:59 11/19/16 07:34 100 MLS/HR Objective Vital Signs Date Time Temp Pulse Resp B/P Pulse Ox O2 Delivery O2 Flow Rate FiO2 11/19/16 08:00 Room Air 11/19/16 07:34 36.8 71 18 98/66 93 Room Air 11/19/16 00:03 37.1 85 16 122/79 93 Room Air 11/18/16 23:59 Room Air 11/18/16 20:00 Room Air 11/18/16 16:00 Room Air 11/18/16 15:20 36.5 84 17 106/67 97 Room Air Physical Exam General Appearance: + mild distress, + obese Neck: supple, no JVD Respiratory/Chest: lungs clear, + respiratory distress Cardiovascular: regular rate, rhythm, no JVD, no murmur Abdomen: soft, + tenderness (mild, diffuse LLQ tenderness, w/o rebound or gaurding) Neurologic/Psych: alert, normal mood/affect, oriented x 3 Skin: no jaundice Laboratory Results Last 24 Hours Test 11/19/16 05:36 White Blood Count 11.87 K/uL Red Blood Count 3.90 M/uL Hemoglobin 11.5 g/dL Hematocrit 35.7 % Mean Corpuscular Volume 91.5 fL Mean Corpuscular Hemoglobin 29.5 pg Mean Corpuscular Hemoglobin Concent 32.2 g/dl Platelet Count 271 K/uL Mean Platelet Volume 9.0 fL Neutrophils (%) (Auto) 58.0 % Lymphocytes (%) (Auto) 33.7 % Monocytes (%) (Auto) 6.8 % Eosinophils (%) (Auto) 0.8 % Basophils (%) (Auto) 0.3 % Neutrophils # (Auto) 6.88 K/uL Lymphocytes # (Auto) 4.00 K/uL Monocytes # (Auto) 0.81 K/uL Eosinophils # (Auto) 0.10 K/uL Basophils # (Auto) 0.03 K/uL RDW Standard Deviation 49.7 fL RDW Coefficient of Variation 14.9 % Immature Granulocyte % (Auto) 0.4 % Immature Granulocyte # (Auto) 0.05 K/uL Sodium Level 141 mmol/L Potassium Level 3.6 mmol/L Chloride Level 106 mmol/L Carbon Dioxide Level 30 mmol/L Anion Gap 5.0 mmol/L Blood Urea Nitrogen 12 mg/dl Creatinine 0.82 mg/dl Est Creatinine Clear Calc Drug Dose 107.3 ml/min Estimated GFR () 90.8 Estimated GFR (Non- 78.3 BUN/Creatinine Ratio 14.0 Random Glucose 86 mg/dl Calcium Level 8.0 mg/dl Magnesium Level 1.8 mg/dl Assessment and Plan Ms. Samaniego is a 61 yr old female admitted with abdominal cramping, bloody diarrhea. Imaging w/o abnormalities. Symptoms most consistent with ischemic colitis. Plan: 1. Colonoscopy - deciding tomorrow vs. 6 weeks (dependent on if pt is continuing to have rectal bleeding). 2. Continue IV fluids. 3. Continue Cipro/Flagyl to prevent translocation of bacteria. 4. Continue clear liquid diet. I saw and evaluated the patient. She notes that her bleeding has discontinued as of yesterday she does still have some liquid stool. Impression: Symptoms are most compatible with mild ischemic colitis Recommendations Complete a 10 day course of antibiotic coverage Advance diet as tolerated Colonoscopy to be scheduled in 6 weeks after patient is healed from this present episode Please call with any questions or concerns during the hospital admission
[2016-11-19] MEDS: PANTOprazole INJ 40 MG in SYRINGE 0 ML IV SCH (11:30)
[2016-11-19 15:41] VITALS: BP 110/68; PULSE 81; TEMP 36.4; O2SAT 91
--- NOTE | 2016-11-19 17:00 | Progress Note ---
Subjective Date of Service: November 19, 2016. Subjective Pt evaluation today including: conversation w/ patient, conversation w/ family , physical exam, chart review, lab review, review of studies, review of inpatient medication list Problem List Medical Problems: (1) Abdominal cramping Status: Acute (2) Blood in stool Status: Acute (3) Renal insufficiency Status: Acute Review of Systems Constitutional: No chills, No fatigue, No fever, No problem reported, No see HPI, No sweats, No weakness, No weight loss Eyes: No diplopia, No discharge, No eye pain, No problem reported, No redness, No see HPI, No worsening of vision ENT: No dental problems, No hearing loss, No nasal symptoms, No problem reported, No see HPI, No sore throat, No tinnitus, No trouble swallowing, No unusual epistaxis Respiratory: No cough, No dyspnea at rest, No dyspnea on exertion, No hemoptysis, No problem reported, No see HPI, No shortness of breath, No sputum, No wheezing Cardiac: No PND, No chest pain, No claudication, No edema, No orthopnea, No palpitations, No problem reported, No see HPI Abdomen: + GI bleeding, + pain Musculoskeletal: No calf pain, No joint pain, No muscle pain, No problem reported, No see HPI, No swelling Female : No abnormal vaginal bleeding, No dysuria, No hematuria, No incontinence, No problem reported, No see HPI, No urinary frequency, No vaginal discharge Neurologic: No balance problems, No memory loss, No numbness/tingling, No paralysis, No problem reported, No see HPI, No vertigo, No weakness Psychiatric: No anhedonism, No anxiety, No depression symptoms, No insomnia, No problem reported, No see HPI, No substance abuse Heme: No abnormal bleeding/bruising, No clotting problems, No night sweats, No problem reported, No see HPI, No swollen lymph nodes Endo: No excessive thirst, No excessive urination, No fatigue, No problem reported, No see HPI Skin: No bleeding, No color change, No itch, No new/changing skin lesions, No problem reported, No rash, No see HPI Medications Current Inpatient Medications Medications (Trade) Dose Ordered Sig/Naomy Route Start Time Stop Time Status Last Admin Dose Admin Sodium Chloride (Nss 1000ml) 1,000 ml @ 100 mls/hr Q10H IV 11/17/16 03:30 12/17/16 03:29 11/19/16 06:16 100 MLS/HR Levothyroxine Sodium (Synthroid Tab) 125 mcg DAILYBB PO 11/17/16 06:00 12/17/16 06:59 11/19/16 06:16 125 MCG Ropinirole HCl 0.5 mg 0.5 mg QPM PO 11/17/16 21:00 12/17/16 20:59 11/18/16 21:08 0.5 MG Pantoprazole Sodium/Syringe (Protonix Inj/ Syringe) 10 ml @ 5 mls/min DAILY@11 IV 11/17/16 11:00 12/17/16 10:59 11/19/16 11:30 5 MLS/MIN Fluoxetine HCl (Prozac Cap) 20 mg QAM PO 11/17/16 09:00 12/17/16 08:59 11/19/16 07:34 20 MG Ondansetron HCl 4 mg 4 mg Q6H PRN IV 11/17/16 02:15 12/17/16 02:14 Acetaminophen 100 ml @ 400 mls/hr Q8H PRN IV 11/17/16 02:15 12/17/16 02:14 11/19/16 07:38 400 MLS/HR Metronidazole 500 mg/Prmx 100 ml @ 100 mls/hr Q8H IV 11/17/16 04:00 11/27/16 03:59 11/19/16 11:31 100 MLS/HR Ciprofloxacin/ Dextrose/Prmx (Cipro / D5w/ Premixed D5W) 200 ml @ 100 mls/hr Q12H IV 11/18/16 08:00 11/28/16 07:59 11/19/16 07:34 100 MLS/HR Objective Vital Signs Date Time Temp Pulse Resp B/P Pulse Ox O2 Delivery O2 Flow Rate FiO2 11/19/16 15:41 36.4 81 16 110/68 91 11/19/16 08:00 Room Air 11/19/16 07:34 36.8 71 18 98/66 93 Room Air 11/19/16 00:03 37.1 85 16 122/79 93 Room Air 11/18/16 23:59 Room Air 11/18/16 20:00 Room Air Physical Exam General Appearance: WD/WN, no apparent distress Eyes: normal inspection, EOMI ENT: normal ENT inspection, hearing grossly normal Neck: supple Respiratory/Chest: chest non-tender, lungs clear, normal breath sounds, no respiratory distress Cardiovascular: regular rate, rhythm, no edema, no gallop, no JVD Abdomen: normal bowel sounds, non tender, soft, no organomegaly Extremities: normal range of motion, non-tender, normal inspection, no pedal edema Neurologic/Psychiatric: finish filer II-XII nml as tested, no motor/sensory deficits, alert, normal mood/affect, oriented x 3 Skin: normal color, warm/dry, no rash Laboratory Results Last 24 Hours Test 11/19/16 05:36 White Blood Count 11.87 K/uL Red Blood Count 3.90 M/uL Hemoglobin 11.5 g/dL Hematocrit 35.7 % Mean Corpuscular Volume 91.5 fL Mean Corpuscular Hemoglobin 29.5 pg Mean Corpuscular Hemoglobin Concent 32.2 g/dl Platelet Count 271 K/uL Mean Platelet Volume 9.0 fL Neutrophils (%) (Auto) 58.0 % Lymphocytes (%) (Auto) 33.7 % Monocytes (%) (Auto) 6.8 % Eosinophils (%) (Auto) 0.8 % Basophils (%) (Auto) 0.3 % Neutrophils # (Auto) 6.88 K/uL Lymphocytes # (Auto) 4.00 K/uL Monocytes # (Auto) 0.81 K/uL Eosinophils # (Auto) 0.10 K/uL Basophils # (Auto) 0.03 K/uL RDW Standard Deviation 49.7 fL RDW Coefficient of Variation 14.9 % Immature Granulocyte % (Auto) 0.4 % Immature Granulocyte # (Auto) 0.05 K/uL Sodium Level 141 mmol/L Potassium Level 3.6 mmol/L Chloride Level 106 mmol/L Carbon Dioxide Level 30 mmol/L Anion Gap 5.0 mmol/L Blood Urea Nitrogen 12 mg/dl Creatinine 0.82 mg/dl Est Creatinine Clear Calc Drug Dose 107.3 ml/min Estimated GFR () 90.8 Estimated GFR (Non- 78.3 BUN/Creatinine Ratio 14.0 Random Glucose 86 mg/dl Calcium Level 8.0 mg/dl Magnesium Level 1.8 mg/dl Assessment and Plan bleeding per rectum with lower abdominal pain. Unable to clinically determine ( ischemic versus infectious) SIRS POA (leukocytosis, inflammatory markers ) improving, WBC count dropped to 11 lower GI bleed is improving GI consult appreciated, colonoscopy now versus 6 weeks from now based on symptoms Acute renal failure--creatinine on admission labs is 1.5 secondary to dehydration and meds, continue to hold enalapril and HCTZ. continue IVF hydration Possible UTI versus pyuria awaiting urine cx GERD--change Nexium to pantoprazole. Hypothyroidism--continue levothyroxine 125 g by mouth Saturday through . Depression/anxiety--continue fluoxetine 20 mg by mouth daily and bupropion 100 mg by mouth daily. Hold amitriptyline 50 mg by mouth at bedtime. Restless leg syndrome--continue ropinirole 0.5 mg by mouth every afternoon.
[2016-11-19] MEDS: ROPINIROLE HCL 0.25 MG TAB PO SCH (20:00)
[2016-11-19 23:33] VITALS: BP 108/64; PULSE 72; TEMP 36.8; O2SAT 93
[2016-11-20] MEDS: SODIUM CHLORIDE 0.9% 1000ML 1,000 ML IV SCH (01:42)
[2016-11-20] MEDS: METRONIDAZOLE / NSS 500 MG in PREMIXED NSS 100 ML IV SCH (04:47)
[2016-11-20] MEDS: LEVOTHYROXINE 125 MCG TAB PO SCH (05:56)
[2016-11-20 06:01] LABS: BASO % 0.2 %; BASO ABS # 0.02 K/uL (0-0.2); COMPLETE YES; IG% 0.8 %; LYMPH ABS # 3.44 K/uL (1.2-3.4); MEAN CELL VOLUME 91.8 fL (80-100); MEAN CORPUSCULAR HEMOGLOBIN 29.3 pg (25-34); MEAN CORPUSCULAR HGB CONC 31.9 g/dl (32-36); MEAN PLATELET VOLUME 9.1 fL (7.4-10.4); MONO % 9.1 %; NEUT % 47.9 %; PLATELET COUNT 289 K/uL (130-400); RED BLOOD COUNT 3.92 M/uL (4.2-5.4); WHITE BLOOD COUNT 8.61 K/uL (4.8-10.8)
[2016-11-20 06:34] LABS: ALB/GLOB RATIO 0.8 (0.9-2); BUN/CREATININE RATIO 9.3 (10-20); CALCIUM 7.9 mg/dl (8.5-10.1); CREATININE 0.79 mg/dl (0.60-1.20); MAGNESIUM 1.8 mg/dl (1.8-2.4); PHOSPHORUS 2.6 mg/dl (2.5-4.9); POTASSIUM 3.8 mmol/L (3.5-5.1)
[2016-11-20 07:16] VITALS: BP 136/81; PULSE 78; TEMP 36.4; O2SAT 96
[2016-11-20] MEDS: CIPROFLOXACIN / D5W 400 MG in PREMIXED IN D5W 200 ML IV SCH (07:32)
[2016-11-20] MEDS: FLUOXETINE HCL 20 MG CAP PO SCH (07:32)
[2016-11-20] MEDS: PANTOprazole INJ 40 MG in SYRINGE 0 ML IV SCH (11:11)
[2016-11-20] MEDS ORDERED: MTR500 PO (11:33)
[2016-11-20] MEDS ORDERED: AMIT25TA9 PO (11:33)
[2016-11-20] MEDS ORDERED: CPR500 PO (11:33)
--- NOTE | 2016-11-20 11:37 | Discharge Instructions ---
Discharge Instructions Admission Admission Date: November 17, 2016 at 01:56 Admission Diagnosis: Acute Renal Insufficiency; Hematochezia. Discharge Care Plan - Problem: Medical Problems: (1) Abdominal cramping (2) Blood in stool (3) Renal insufficiency Care Plan - Goal(s): Improve function Care Plan - Instructions: Recommended Home Diet: 1800 Aaron Wt Reduction, AHA Phase I (2gmNa/LoCho) VTE Core Measure Inpt VTE Proph given/why not?: SCD's Follow Up Follow-Up: Follow up with GI as scheduled Flory Craig Recommendations: Call your doctor if: * Temperature above 101 degrees * Pain not relieved by pain medicine ordered * There is increased drainage or redness from any incision * You have any unanswered questions or concerns. Your Doctors Instructions noted above were prepared by provider Umer De Leon.
[2016-11-20 11:45] VITALS: BP 136/81; PULSE 78; TEMP 36.4; O2SAT 96
--- NOTE | 2016-11-20 12:53 | Discharge Summary ---
Discharge Summary Date of Service November 20, 2016. Discharge Summary Admission Date: November 17, 2016 at 01:56 Discharge Date: November 20, 2016 Discharge Disposition: Home Principal Diagnosis: GI bleed Problems/Secondary Diagnoses: bleeding per rectum SIRS POA (leukocytosis, inflammatory markers ) Acute renal failure Possible UTI versus pyuria, can not clinically determine GERD Hypothyroidism Depression/anxiety. Restless leg syndrome Medication Reconciliation New Medications: Amitriptyline Hcl (Elavil) 25 Mg Tab 1 TAB PO HS for 30 Days, #30 TAB 5 Refills Ciprofloxacin (Ciprofloxacin HCl) 500 Mg Tab 500 MG PO BID for 8 Days, #16 TAB Metronidazole (Metronidazole) 500 Mg Tab 500 MG PO Q8 for 8 Days, #24 TAB Continued Medications: Bupropion Hcl (Wellbutrin) 100 Mg Tab 100 MG PO DAILY, #30 Esomeprazole Magnesium (Esomeprazole Magnesium) 40 Mg Cap 40 MG PO DAILY, #30 Fluoxetine Hcl (Fluoxetine Hcl) 20 Mg Tab 20 MG PO DAILY, #30 Levothyroxine Sodium (Levothyroxine Sodium) 125 Mcg Tab 1 TAB PO 6XWK for 90 Days, TAB 3 Refills TAKE ALL DAYS BUT SAT. Levothyroxine Sodium (Synthroid) 125 Mcg Tab 0.5 TAB PO FRIDAYS, TAB Multivitamin (Multivitamin) Tab 1 TAB PO QAM Ropinirole (Requip) 0.25 Mg Tab 0.5 MG PO QPM, TAB Ropinirole HCl (Ropinirole HCl) 0.25 Mg Tab 0.25 MG PO DAILY PRN for RESTLESS LEGS, #90 [Proair] () 2 PUFFS INH Q4 PRN for SOB/Wheezing Discontinued Medications: Amitriptyline Hcl (Amitriptyline Hcl) 50 Mg Tab 50 MG PO HS, #30 Enalapril Maleate & Hydrochlor (Enalapril Maleate/Hydroch) 1 Tab Tab 1 TAB PO DAILY, #30 Discharge Exam Review of Systems: Constitutional: No chills, No fatigue, No fever, No problem reported, No sweats, No weakness, No weight loss Eyes: No diplopia, No discharge, No eye pain, No problem reported, No redness, No worsening of vision ENT: No dental problems, No hearing loss, No nasal symptoms, No problem reported, No sore throat, No tinnitus, No trouble swallowing, No unusual epistaxis Respiratory: No cough, No dyspnea at rest, No dyspnea on exertion, No hemoptysis, No problem reported, No shortness of breath, No sputum, No wheezing Cardiovascular: No PND, No chest pain, No claudication, No edema, No orthopnea, No palpitations, No problem reported Abdomen: No GI bleeding, No constipation, No diarrhea, No nausea, No pain, No problem reported, No vomiting Musculoskeletal: No calf pain, No joint pain, No muscle pain, No problem reported, No swelling Genitourinary - Female: No dysmenorrhea, No dysuria, No hematuria, No menorrhagia, No metrorrhagia, No , No problem reported, No rash, No urinary frequency, No urinary incontinence, No urinary retention, No urinary urgency, No vaginal bleeding, No vaginal discharge, No vaginal itching, No vulvodynia Neurologic: No balance problems, No memory loss, No numbness/tingling, No paralysis, No problem reported, No vertigo, No weakness Psychiatric: No anhedonism, No anxiety, No depression symptoms, No insomnia , No problem reported, No substance abuse Endocrine: No excessive thirst, No excessive urination, No fatigue, No problem reported Physical Exam: General Appearance: WD/WN, no apparent distress Eyes: normal inspection, EOMI ENT: normal ENT inspection, hearing grossly normal Neck: supple Respiratory/Chest: chest non-tender, lungs clear, normal breath sounds, no respiratory distress, no accessory muscle use Cardiovascular: regular rate, rhythm, no edema, no gallop, no JVD, no murmur Abdomen / GI: normal bowel sounds, non tender, soft, no organomegaly Extremities: normal inspection, no calf tenderness, normal capillary refill Neurologic/Psychiatric: neurosurgery spine physician II-XII nml as tested, no motor/sensory deficits , alert, normal mood/affect, normal reflexes, oriented x 3 Skin: normal color, warm/dry, no rash Hospital Course 61 years old female presented to the hospital with rectal bleed CT scan abd and pelvis was done and did reveal the cause of bleeding also had lower abdominal pain. Unable to clinically determine (ischemic versus infectious) also was found to have SIRS POA (leukocytosis, inflammatory markers ) she was started on IVF, cipro/flagyl GI consult appreciated, colonoscopy now versus 6 weeks from now based on symptoms on admission she was found to have Acute renal failure--creatinine on admission labs is 1.5 secondary to dehydration and meds, we held enalapril and HCTZ. continued IVF hydration renal function improved, upon discharge ACEI was discontinued UA showed some WBCs , Possible UTI versus pyuria urine cx did not grow so far. continued levothyroxine Depression/anxiety--continued fluoxetine 20 mg by mouth daily and bupropion 100 mg by mouth daily. decreased amitriptyline from 50 mg to 25mg po daily Total Time Spent: Greater than 30 minutes This includes examination of the patient, discharge planning, medication reconciliation, and communication with other providers. Discharge Instructions Please refer to the electronic Patient Visit Report (Discharge Instructions) for additional information.
[2016-11-20] MEDS ORDERED: METRONIDAZOLE 500 MG TAB PO SCH (14:00)
[2016-11-20] MEDS ORDERED: CIPROFLOXACIN 500 MG TAB PO SCH (21:00)
[2016-11-21] MEDS ORDERED: PANTOprazole SOD 40 MG TAB PO SCH (09:00)
[2016-12-25] MEDS ORDERED: AMT/50 PO (10:11)
[2016-12-25] MEDS ORDERED: ENALAPRIL HCTZ PO (10:12)
== END 2016-11-20 13:36 | disposition home or self-care (01) | DRG 378 ==
LOC: ENRESERVDT → ENRESERVTM → C.EDB 21:48 → C.MSICU 11-17 01:56 → C.MS2W 11-17 10:20
PROVIDERS: ADMIT Hospitalist; ATTEND Internal Medicine
DX: K92.1 Melena (principal); N17.9 Acute kidney failure, unspecified; N39.0 Urinary tract infection, site not specified; K55.9 Vascular disorder of intestine, unspecified; K90.49 Malabsorption due to intolerance, not elsewhere classified; E86.0 Dehydration; K21.9 Gastro-esophageal reflux disease without esophagitis; E03.9 Hypothyroidism, unspecified; F32.9 Major depressive disorder, single episode, unspecified; E66.01 Morbid (severe) obesity due to excess calories; G25.81 Restless legs syndrome

== ENCOUNTER → 2016-11-22 | Outpatient (CLI) | payer BC ==
[~2016-11-22] MED LIST changes: -ALBU1AER9 INH; +AMIT25TA9 PO; +AMT/50 PO; -AMT50 PO; +BUPR100T13 PO; -BUPR100T8 PO; +CPR500 PO; +ENALAPRIL HCTZ PO; -ENALAPRIL/HCTZ PO; +ESOM1CAP34 PO; +FLUO1TAB12 PO; -FLUO40CA8 PO; +LEVO125T72 PO; +MTR500 PO; -OMEP40CA PO; +PROAIR INH; +ROPI0.25 PO; -ROPI0.5T15 PO; +RQP25 PO; -TRAM-10 PO
[2016-11-22 09:42] LABS: CALCIUM 8.7 mg/dl (8.5-10.1)
[2016-11-22 09:44] LABS: ALT/SGPT 44 U/L (12-78); AST/SGOT 55 U/L (15-37); BLOOD UREA NITROGEN 8 mg/dl (7-18); CARBON DIOXIDE 28 mmol/L (21-32); CHLORIDE 106 mmol/L (98-107); CREATININE 0.88 mg/dl (0.60-1.20); GLUCOSE 96 mg/dl (70-99); POTASSIUM 3.7 mmol/L (3.5-5.1); SODIUM 143 mmol/L (136-145)
[2016-11-22 09:47] LABS: ALB/GLOB RATIO 0.8 (0.9-2); ALKALINE PHOSPHATASE 70 U/L (45-117)
== END | disposition home or self-care (01) ==
LOC: C.LAB1850 08:28
PROVIDERS: ATTEND Physician Assistant
DX: R60.0 Localized edema (principal)

== ENCOUNTER → 2017-01-03 | Day surgery (SDC) | payer BC ==
[2016-12-25 10:13] VITALS: Ht 162.6 cm; Wt 145.4 kg
[~2017-01-03] VITALS: Ht 162.6 cm; Wt 145.4 kg
[~2017-01-03] MED LIST changes: -AMIT25TA9 PO; -CPR500 PO; +ENDOSCOPIC MARKER 5 ML SYR ONE; +LIDOCAINE HCL 2% 2 ML VIAL (20MG/ML) ONE; +MIDAZOLAM HCL 1 MG/ML 2ML VIAL ONE; -MTR500 PO; +ONDANSETRON INJ 2 MG/ML 2 ML VIAL IV PRN; +PROPOFOL IV EMULSION 10 MG/ML 20 ML VIAL IV ONE; -ROPI0.25 PO
--- NOTE | 2017-01-03 08:53 | Endo History and Physical ---
History & Physical Date of Service: Jan 03, 2017. Chief Complaint: Screening Referring Physician: Matteo History of Present Illness History of hematochezia thought to be secondary to ischemic colitis over 6 weeks ago. Now without symptoms (doing well). Colonoscopy for CRC screening. Past Medical History Arthritis, Anxiety, Thyroid Disease, Other, Depression Past Surgical History Hx Cardiac Surgery: No Hx Internal Defibrillator: No Hx Abdominal Surgery: Yes (TUBAL,HYSTERECTOMY,CHOLECYSTECTOMY,EXPLORATORY LAP FOR INFECTION) Hx of Implantable Prosthesis: No Hx Post-Op Nausea and Vomiting: Yes (X1 WITH KNEE SURG) Hx Cancer Surgery: No Hx Thoracic Surgery: No Hx Orthopedic: Yes (R KNEE 2015) Hx Urinary Tract Surgery: No Family History None, IBD Social History Smoking Status: Never Smoker Hx Substance Use: No Hx Alcohol Use: No Allergies Coded Allergies: CI Pigment Blue 63 (Verified Allergy, Unknown, swelling of lips, 01/03/17) Doxycycline (Verified Allergy, Unknown, GI UPSET, 01/03/17) Per PCP note Duloxetine (Verified Allergy, Unknown, swelling, 01/03/17) Oxycodone (Verified Adverse Reaction, Mild, NAUSEA, 01/03/17) Current Medications Reported Home Medications Medications Dose Route/Sig Max Daily Dose Days Date Category Dose Instructions [Enalapril Hctz] 1 Tab PO QAM 12/25/16 Reported PT NOT SURE OF DOSE Amitriptyline HCl 50 Mg Tab 50 Mg PO HS 12/25/16 Reported Synthroid (Levothyroxine Sodium) 125 Mcg Tab 0.5 Tab PO Fridays11/16/16 Reported Ropinirole HCl 0.25 Mg Tab 0.25 Mg PO BID PRN 11/16/16 Reported Wellbutrin (Bupropion Hcl) 100 Mg Tab 100 Mg PO QAM 11/16/16 Reported Fluoxetine Hcl 20 Mg Tab 5-20 Mg PO QAM 11/16/16 Reported BEING WEANED OFF THIS MED Esomeprazole Magnesium 40 Mg Cap 40 Mg PO QAM 11/16/16 Reported Levothyroxine Sodium 125 Mcg Tab 1 Tab PO 6XWK 90 12/23/15 Reported TAKE ALL DAYS BUT SAT. Multivitamin (Multivitamins) Tab 1 Tab PO QAM 02/22/09 Reported Vital Signs Weight (Kilograms): 145.45 Height (Feet): 5 Height (Inches): 4 Date Time Temp Pulse Resp B/P (MAP) Pulse Ox O2 Delivery O2 Flow Rate FiO2 01/03/17 08:44 36.6 101 18 123/87 (99) 95 Room Air Physical Exam General Appearance: no apparent distress Respiratory/Chest: Auscultation: breath sounds normal Cardiovascular: Heart Auscultation: RRR Abdomen: Inspection & Palpation: soft Assessment and Plan Colonoscopy for f/u evaluation of hematochezia last month. We have discussed the risks to include bleeding, infection, perforation, pain, and missed polyps.
--- NOTE | 2017-01-03 09:39 | GI REPORT ---
Procedure Date: 01/03/2017 9:07 AM Procedure: Colonoscopy Indications: Screening for colorectal malignant neoplasm Medicines: Monitored Anesthesia Care Complications: No immediate complications. Estimated blood loss: Minimal. Estimated Blood Loss: Estimated blood loss was minimal. Procedure: Pre-Anesthesia Assessment: - Prior to the procedure, a History and Physical was performed, and patient medications, allergies and sensitivities were reviewed. The patient's tolerance of previous anesthesia was reviewed. - The risks and benefits of the procedure and the sedation options and risks were discussed with the patient. All questions were answered and informed consent was obtained. - Patient identification and proposed procedure were verified prior to the procedure by the physician, the nurse and the cad specialist. The procedure was verified in the pre-procedure area in the procedure room. - Pre-procedure physical examination revealed no contraindications to sedation. - ASA Grade Assessment: III - A patient with severe systemic disease. - After reviewing the risks and benefits, the patient was deemed in satisfactory condition to undergo the procedure. - The anesthesia plan was to use monitored anesthesia care (MAC). - Immediately prior to administration of medications, the patient was re-assessed for adequacy to receive sedatives. - The heart rate, respiratory rate, oxygen saturations, blood pressure, adequacy of pulmonary ventilation, and response to care were monitored throughout the procedure. - The physical status of the patient was re-assessed after the procedure. After I obtained informed consent, the scope was passed under direct vision. Throughout the procedure, the patient's blood pressure, pulse, and oxygen saturations were monitored continuously. The Scope was introduced through the anus and advanced to the cecum, identified by appendiceal orifice and ileocecal valve. The colonoscopy was performed without difficulty. The patient tolerated the procedure well. The quality of the bowel preparation was good. Findings: The perianal and digital rectal examinations were normal. Pertinent negatives include normal sphincter tone. A frond-like/villous non-obstructing large mass was found in the ascending colon adjacent to the ileocecal valve. The mass was non-circumferential and measured about 4 to 5 cm. No bleeding was present. I did try to lift the mass for potential EMR, however, the center of the lesion remained retracted suggesting it was not amenable to endoscopic resection. Biopsies were taken with a cold forceps for histology. Area was tattooed with an injection of 3 mL of Spot (carbon black). Estimated blood loss was minimal. Internal hemorrhoids were found during retroflexion. The hemorrhoids were mild. The exam was otherwise without abnormality. Impression: - Rule out malignancy, tumor in the ascending colon. Biopsied. Tattooed. - Internal hemorrhoids. - The examination was otherwise normal. Recommendation: - Discharge patient to home (ambulatory). - Advance diet as tolerated today. - Refer to a surgeon at appointment to be scheduled (I have called Dr. Brant Ingram). - Await pathology results. - Repeat colonoscopy in 1 year for surveillance. Jaziel Herron D.O. Jaziel Herron, 01/03/2017 9:39:23 AM This report has been signed electronically. Note Initiated On: 01/03/2017 9:07 AM I attest to the content of the Intraoperative Record and orders documented therein, exceptions below
--- NOTE | 2017-01-03 09:41 | Discharge Instructions ---
Endoscopy Patient Instructions Date / Procedure(s) Performed Jan 03, 2017. Colonoscopy Allergy Information Coded Allergies: CI Pigment Blue 63 (Verified Allergy, Unknown, swelling of lips, 01/03/17) Doxycycline (Verified Allergy, Unknown, GI UPSET, 01/03/17) Per PCP note Duloxetine (Verified Allergy, Unknown, swelling, 01/03/17) Oxycodone (Verified Adverse Reaction, Mild, NAUSEA, 01/03/17) Discharge Date / Findings Jan 03, 2017. Hemorrhoids Colonic mass (Right colon) Medication Instructions Reported Home Medications Medications Dose Route/Sig Max Daily Dose Days Date Category Dose Instructions [Enalapril Hctz] 1 Tab PO QAM 12/25/16 Reported PT NOT SURE OF DOSE Amitriptyline HCl 50 Mg Tab 50 Mg PO HS 12/25/16 Reported Synthroid (Levothyroxine Sodium) 125 Mcg Tab 0.5 Tab PO Fridays11/16/16 Reported Ropinirole HCl 0.25 Mg Tab 0.25 Mg PO BID PRN 11/16/16 Reported Wellbutrin (Bupropion Hcl) 100 Mg Tab 100 Mg PO QAM 11/16/16 Reported Fluoxetine Hcl 20 Mg Tab 5-20 Mg PO QAM 11/16/16 Reported BEING WEANED OFF THIS MED Esomeprazole Magnesium 40 Mg Cap 40 Mg PO QAM 11/16/16 Reported Levothyroxine Sodium 125 Mcg Tab 1 Tab PO 6XWK 90 12/23/15 Reported TAKE ALL DAYS BUT SAT. Multivitamin (Multivitamins) Tab 1 Tab PO QAM 02/22/09 Reported Provider Instructions Activity Restrictions - No exercising or heavy lifting for 24 hours. - Do not drink alcohol the day of the procedure. - Do not drive a car or operate machinery until the day after the procedure. - Do not make any important decisions or sign important papers in 24 hours after the procedure. Following Day: - Return to full activity which may include returning to work/school. Diet Start your diet with liquids and light foods (jello, soup, juice, toast). Then eat your usual diet if not nauseated. Treatment For Common After Affects For mild abdominal pain, bloating, or excessive gas: - Rest - Eat lightly - Lie on right side Follow-Up Information Await pathology results I have referred you to a General Surgeon (Dr. Brant Ingram) Anesthesia Information What You Should Know You have had a procedure that required some medicine to reduce anxiety and discomfort. This treatment is called moderate sedation. After receiving the treatment, you may be sleepy, but you will be able to breathe on your own. The effects of the treatment may last for several hours. Follow these instructions along with Activity/Diet recommendations noted above: * Do NOT do anything where dizziness or clumsiness would be dangerous. * Rest quietly at home today, then you can be up and about tomorrow. * Have a responsible person stay with you the rest of today. * You may have had an I.V. today. If so, you may take the dressing off later today. Recommendations Call your doctor if: * Trouble breathing * Continuous vomiting for more than 24 hours * Temperature above 101 degrees * Severe abdominal pain or bloating * Pain not relieved by pain medicine ordered * There is increased drainage or redness from any incision * A large amount of rectal bleeding greater than 2-3 tablespoons. (If you had a polyp/s removed or have hemorrhoids, a small amount of blood - from the rectum is to be expected.) * You have any unanswered questions or concerns. IN THE EVENT OF A SERIOUS EMERGENCY, GO TO THE NEAREST EMERGENCY ROOM Your discharge instructions were prepared by provider Jaziel Herron. Patient Instructions Signature Page Karoline Samaniego Patient (or Guardian) Signature/Date: I have read and understand the instructions given to me by my caregivers. Caregiver/RN/Doctor Signature/Date: The above-named patient and/or guardian has received patient instructions on this date. + Original Patient Signature Page (only) stays with chart. Please make copy for patient.
[2017-01-03 09:48] VITALS: BP 102/68; PULSE 94; O2SAT 96
--- NOTE | 2017-01-03 10:10 | Anesthesiology Progress Note ---
Anesthesia Post Op Note Date & Time Jan 03, 2017 at 10:10 Vital Signs Pain Intensity: 0 Vital Signs Past 12 Hours Date Time Temp Pulse Resp B/P (MAP) Pulse Ox O2 Delivery O2 Flow Rate FiO2 01/03/17 09:48 94 20 102/68 (79) 96 Room Air 01/03/17 09:33 106 22 96/72 (80) 96 Room Air 01/03/17 08:44 36.6 101 18 123/87 (99) 95 Room Air Notes Mental Status: alert / awake / arousable, participated in evaluation Pt Amnestic to Procedure: Yes Nausea / Vomiting: adequately controlled Pain: adequately controlled Airway Patency, RR, SpO2: stable & adequate BP & HR: stable & adequate Hydration State: stable & adequate Anesthetic Complications: no major complications apparent
== END | disposition home or self-care (01) ==
LOC: C.GI 08:02
PROVIDERS: ATTEND Internal Medicine Gastroenterology
DX: Z12.11 Encounter for screening for malignant neoplasm of colon (principal); D12.2 Benign neoplasm of ascending colon; K64.8 Other hemorrhoids; E07.9 Disorder of thyroid, unspecified; F32.9 Major depressive disorder, single episode, unspecified; F41.9 Anxiety disorder, unspecified; Z83.79 Family history of other diseases of the digestive system; Z79.899 Other long term (current) drug therapy

== ENCOUNTER → 2017-01-11 | Outpatient (CLI) | payer BC ==
[~2017-01-11] MED LIST changes: -ENDOSCOPIC MARKER 5 ML SYR ONE; +LEVO125T4 PO; -LEVO125T5 PO; -LIDOCAINE HCL 2% 2 ML VIAL (20MG/ML) ONE; -MIDAZOLAM HCL 1 MG/ML 2ML VIAL ONE; -ONDANSETRON INJ 2 MG/ML 2 ML VIAL IV PRN; -PROAIR INH; -PROPOFOL IV EMULSION 10 MG/ML 20 ML VIAL IV ONE
[2017-01-11 14:43] LABS: BASO % 0.3 %; BASO ABS # 0.03 K/uL (0-0.2); COMPLETE YES; EOS % 1.4 %; HEMATOCRIT 42.8 % (37-47); IG% 0.4 %; LYMPH % 35.6 %; LYMPH ABS # 3.59 K/uL (1.2-3.4); MEAN CELL VOLUME 91.5 fL (80-100); MEAN CORPUSCULAR HEMOGLOBIN 30.6 pg (25-34); MEAN CORPUSCULAR HGB CONC 33.4 g/dl (32-36); MEAN PLATELET VOLUME 9.7 fL (7.4-10.4); MONO % 6.5 %; NEUT % 55.8 %; PLATELET COUNT 384 K/uL (130-400); RED BLOOD COUNT 4.68 M/uL (4.2-5.4); WHITE BLOOD COUNT 10.08 K/uL (4.8-10.8)
== END | disposition home or self-care (01) ==
LOC: C.LAB1850 12:31
PROVIDERS: ATTEND Internal Medicine
DX: K63.9 Disease of intestine, unspecified (principal)

== ENCOUNTER → 2017-10-10 | Outpatient (CLI) | payer BC ==
[~2017-10-10] MED LIST changes: -LEVO125T4 PO; +LEVO125T5 PO
[2017-10-10 11:09] LABS: BASO % 0.2 %; BASO ABS # 0.02 K/uL (0-0.2); EOS % 1.5 %; EOS ABS # 0.13 K/uL (0-0.5); HEMATOCRIT 43.5 % (37-47); HEMOGLOBIN 14.3 g/dL (12.0-16.0); LYMPH % 43.9 %; LYMPH ABS # 3.91 K/uL (1.2-3.4); MEAN CELL VOLUME 88.8 fL (80-100); MEAN CORPUSCULAR HEMOGLOBIN 29.2 pg (25-34); MEAN CORPUSCULAR HGB CONC 32.9 g/dl (32-36); MEAN PLATELET VOLUME 9.2 fL (7.4-10.4); MONO % 9.3 %; MONO ABS # 0.83 K/uL (0.11-0.59); NEUT ABS # 3.91 K/uL (1.4-6.5); PLATELET COUNT 351 K/uL (130-400); RED CELL DISTRIBUTION WIDTH CV 14.7 % (11.5-14.5); RED CELL DISTRIBUTION WIDTH SD 47.8 fL (36.4-46.3)
[2017-10-10 11:16] LABS: ALBUMIN 3.3 gm/dl (3.4-5.0); ALT/SGPT 24 U/L (12-78); AST/SGOT 13 U/L (15-37); BLOOD UREA NITROGEN 15 mg/dl (7-18); CALCIUM 8.8 mg/dl (8.5-10.1); CARBON DIOXIDE 26 mmol/L (21-32); CHOLESTEROL 199 mg/dl (0-200); CREATININE 0.99 mg/dl (0.60-1.20); GLUCOSE 92 mg/dl (70-99); POTASSIUM 3.7 mmol/L (3.5-5.1); SODIUM 137 mmol/L (136-145)
[2017-10-10 11:28] LABS: ALKALINE PHOSPHATASE 81 U/L (45-117); LDL CHOLESTEROL CALCULATED 110 mg/dl; TOTAL PROTEIN 8.2 gm/dl (6.4-8.2)
== END | disposition home or self-care (01) ==
LOC: C.LAB1850 09:10
PROVIDERS: ATTEND Internal Medicine
DX: R80.9 Proteinuria, unspecified (principal); R31.9 Hematuria, unspecified; I10 Essential (primary) hypertension; M54.5 Low back pain; E03.9 Hypothyroidism, unspecified

== ENCOUNTER 2022-05-08 08:13 | Inpatient (IN) ==
[2022-05-08] MEDS ORDERED: methylPREDNISolone 125 MG/2 ML VIAL IV STA (08:36)
[2022-05-08] MEDS ORDERED: SODIUM CHLORIDE 0.9% 1000ML 500 ML IV ONE ×2 (08:36→10:16)
[2022-05-08] MEDS ORDERED: ALBUT/IPRATROP 3MG/0.5MG NEB 3 ML VIAL NEB STA ×2 (08:36→10:15)
[2022-05-08] MEDS ORDERED: ALBUT/IPRATROP 3MG/0.5MG NEB 3 ML VIAL ONE (08:37)
--- NOTE | 2022-05-08 08:50 | Emergency Department Note ---
Impression & Plan Respiratory distress, Leukocytosis, Wheezing, Acute bronchitis, COPD exacerbation ED Provider Note NAME: KALYAN LANGSTON AGE: 66 SEX: F : 1955 ARRIVES VIA: Walk-In INFORMANT: [Patient] ED PROVIDER(S): [Giorgio Lindquist MD] CHIEF COMPLAINT: Short of breath HISTORY OF PRESENT ILLNESS: The patient is a 66-year-old female who presents with flulike symptoms. She has felt poorly for around 4, almost 5 days. She has a sore throat, ear pain. She feels congested. She has developed a cough and she cannot sleep. Her voice is hoarse. She believes she had a fever. She has had nausea. No vomiting, no diarrhea. There have been no sick contacts. The patient states that she is coughing so much that her chest and ribs hurt. The pain is mild to moderate in severity. The patient does wear oxygen, 2 L. She has a history of lung disease. She is to use BiPAP at night but admits she does not use this machine. REVIEW OF SYSTEMS: See HPI for pertinent positives and negatives. A total of ten systems were reviewed and were otherwise negative. PMHx/PSHx: See Below SOCIAL HISTORY: See Below. PHYSICAL EXAM: GENERAL: Patient is in mild respiratory distress. HEENT: No acute trauma, normocephalic atraumatic, mucous membranes moist, no nasal congestion, no scleral icterus. NECK: No stridor, no adenopathy, no meningismus, trachea is midline. LUNGS: Mild respiratory distress, increased respiratory rate. She has wheezing bilaterally. A dry cough is noted. Speaks in shorter sentences. HEART: Mildly tachycardic, regular rhythm, no murmurs. ABDOMEN: Soft, nontender, bowel sounds positive, no peritonitis. Obese. EXTREMITIES: No cyanosis, mild bilateral pedal edema. Full range of motion of all the joints without pain or difficulty, no signs for acute trauma. NEUROLOGIC: Oriented x 3, no acute motor or sensory deficits, no focal weakness. SKIN: No rash, no jaundice, no diaphoresis. DIFFERENTIAL DIAGNOSIS: Reactive airway disease, pneumonia, COVID-19, influenza, RSV, pneumothorax, COPD, CHF, infection, cardiac ischemia, pulmonary embolism, bronchitis, musculoskeletal, gastrointestinal, as well as other pathologies. EMERGENCY DEPARTMENT COURSE/PROCEDURES: ECG: Indication was shortness of breath. The ECG shows a sinus tachycardia with a rate of 111. There is some nonspecific ST change noted diffusely. No ST elevation, no PVCs. The QTc is 440. Continuous Cardiac Monitoring: An order was placed for continuous cardiac monitoring. The monitor shows a rate of 112 with sinus tachycardia. Critical Care Note: I have personally spent 42 minutes of critical care time in the direct management of this patient. This includes bedside care, interpretation of diagnostic studies, and testing, discussion with consultants, patient, and family members, and other required patient management activities. This 42 minutes is in excess of all separately billable procedures. MEDICAL DECISION MAKING: There is a moderate leukocytosis, this could be consistent with infection. There is a normal hemoglobin and platelet count. CO2 was somewhat elevated, no renal failure. Lactic acid level was not elevated making severe sepsis less likely. Alk phos was elevated, the remaining liver enzymes were unremarkable. Respiratory bio fire was completely negative. Chest film shows some poor inspiratory effort but no focal pneumonia. ECG showed a sinus tachycardia, no obvious ischemia. Cardiac enzyme testing x1 was not suggestive of acute cardiac injury. On exam, the patient was in some mild respiratory distress. She was breathing quickly and wheezing. She appeared somewhat uncomfortable. Patient was given a DuoNeb, a second DuoNeb was then administered. She received a liter of IV saline. She was given IV Solu-Medrol to help with bronchospasm. She received IV ceftriaxone as antibiotic coverage. The patient has made some improvement but she is still wheezing and still appears somewhat short of breath. I do think she requires a hospital stay. She appears to have an acute bronchitis with a flare of her COPD. I did speak with the patient, I spoke with case management, the on-call ospitalist was consulted. Past Med/Surg History Medical History Cardiac murmur dx as child Depression DVT (deep venous thrombosis) right leg > several yrs ago > due to control pills High blood pressure Hypothyroidism Kidney disease pt unaware Lumbar spondylosis Migraine hx of Morbid obesity with BMI of 50.0-59.9, adult Restless leg syndrome Sleep apnea no cpap Tremor Vocal cord dysfunction Surgical History H/O tubal ligation H/O: hysterectomy History of colonoscopy History of dilatation and curettage x3 History of throat surgery vocal cord surgery History of tonsillectomy History of tooth extraction Hx of cholecystectomy Hx of right knee surgery arthroscopic Family History Father No problems noted. Mother Hypertension Hypothyroidism Denies family history of Ovarian cancer Breast cancer Colorectal cancer Uterine cancer Social History Smoking Status: Never smoker Second Hand Exposure: No; Hx Alcohol Use: No Hx Substance Use: No Preferred Language: Latvian Communication Ability: Effective Visual Impairment: No Limitations Hearing Ability: Normal Back Shoe Worker Required: No Beliefs That Will Affect Care: None marital status: / Current Living Situation: Alone current occupational status: retired Feels Safe at Home: Yes Childhood Exposure to Second-Hand Smoke: Yes Dental Care, Regularly: No Physical Activity Frequency: Does not Exercise Seatbelt Use: always Sunscreen Use: No Assistive Devices: Cane, Scooter/Electric Scooter and Walker Allergies Allergies Allergy/AdvReac Type Severity Reaction Status Date / Time doxycycline Allergy Unknown GI UPSET Verified 05/08/22 12:45 duloxetine Allergy Unknown lip Verified 05/08/22 12:45 swelling enalapril AdvReac Mild Nausea Verified 05/08/22 12:45 oxycodone AdvReac Mild NAUSEA Verified 05/08/22 12:45 pilocarpine AdvReac Mild Nausea Verified 05/08/22 12:45 [From [place] (pilocarpine)] Home Meds Home Medications Medication Instructions Recorded Confirmed multivitamin 1 tab PO DAILY 08/02/21 05/08/22 Previous Rx's Medication Instructions Recorded albuterol sulfate 90 mcg/actuation 2 puff inhalation Q6H PRN 04/19/21 aerosol inhaler (ProAir HFA) shortness of breath or wheezing #8.5 grams Oxygen Home #2 ea 05/31/21 ropinirole 1 mg tablet 0.5 mg PO HS #90 tabs 11/06/21 bupropion HCl 100 mg tablet,12 hr 100 mg PO QAM #90 ea 02/19/22 sustained-release (Wellbutrin SR) sertraline 100 mg tablet See Rx Instructions .Route 04/16/22 .COMPLEX #90 tabs levothyroxine 137 mcg tablet 137 mcg PO QAM #30 tabs 04/26/22 amitriptyline 50 mg tablet 25 mg PO HS #90 tabs 04/27/22 Results & Data (ED) Vital Signs Vital Signs - 24 hr 05/08/22 08:17 05/08/22 09:04 05/08/22 09:04 Temperature 37 C Temperature Source Temporal Artery Scan Pulse Rate 112 H 110 H Pulse Rhythm Regular Respiratory Rate 20 22 Respiratory Effort / Characteristics Non-Labored Spontaneous Respiratory Depth Normal Blood Pressure 141/83 H Blood Pressure Mean 102 Pulse Oximetry 88 L 94 94 Oxygen Delivery Method Room Air Nasal Cannula Nasal Cannula Oxygen Flow Rate Sepsis Recent Fever Within 48 Hours No Sepsis New/Unexplained Change in Mental Status N/A Sepsis Action Taken by Nursing No Action Required Oxygen Flow Rate - Titration 4 05/08/22 08:39 05/08/22 08:45 05/08/22 09:00 Temperature Temperature Source Pulse Rate 111 H 110 H 109 H Pulse Rhythm Respiratory Rate 29 H 29 H 33 H Respiratory Effort / Characteristics Respiratory Depth Blood Pressure Blood Pressure Mean Pulse Oximetry 94 94 95 Oxygen Delivery Method Nasal Cannula Nasal Cannula Nasal Cannula Oxygen Flow Rate 4 4 4 Sepsis Recent Fever Within 48 Hours Sepsis New/Unexplained Change in Mental Status Sepsis Action Taken by Nursing Oxygen Flow Rate - Titration 05/08/22 09:15 05/08/22 09:30 05/08/22 09:45 Temperature Temperature Source Pulse Rate 110 H 110 H 106 H Pulse Rhythm Respiratory Rate 25 H 26 H 21 Respiratory Effort / Characteristics Respiratory Depth Blood Pressure Blood Pressure Mean Pulse Oximetry 96 94 94 Oxygen Delivery Method Nasal Cannula Nasal Cannula Nasal Cannula Oxygen Flow Rate 4 4 4 Sepsis Recent Fever Within 48 Hours Sepsis New/Unexplained Change in Mental Status Sepsis Action Taken by Nursing Oxygen Flow Rate - Titration 05/08/22 10:00 05/08/22 10:15 05/08/22 10:30 Temperature Temperature Source Pulse Rate 108 H 103 H 109 H Pulse Rhythm Respiratory Rate 21 20 15 Respiratory Effort / Characteristics Respiratory Depth Blood Pressure Blood Pressure Mean Pulse Oximetry 95 95 97 Oxygen Delivery Method Nasal Cannula Nasal Cannula Nasal Cannula Oxygen Flow Rate 4 4 4 Sepsis Recent Fever Within 48 Hours Sepsis New/Unexplained Change in Mental Status Sepsis Action Taken by Nursing Oxygen Flow Rate - Titration Home Medications Current Medication List: was personally reviewed by me Laboratory Data Attestation: I reviewed the patient's lab results. Result diagrams: 05/08/22 09:56 05/08/22 09:56 Lab Results 05/08/22 05/08/22 05/08/22 Range/Units 08:56 08:56 08:56 WBC Cancelled RBC Cancelled Hgb Cancelled Hct Cancelled MCV Cancelled MCH Cancelled MCHC Cancelled RDW Std Deviation Cancelled RDW Coeff of Ly Cancelled Plt Count Cancelled MPV Cancelled Immature Gran % (Auto) Cancelled Neut % (Auto) Cancelled Lymph % (Auto) Cancelled [place] % (Auto) Cancelled Eos % (Auto) Cancelled Baso % (Auto) Cancelled Neut # (Auto) Cancelled Lymph # (Auto) Cancelled [place] # (Auto) Cancelled Eos # (Auto) Cancelled Baso # (Auto) Cancelled Immature Gran # (Auto) Cancelled Absolute Nucleated RBC Cancelled Nucleated RBC % (auto) Cancelled Neutrophils % (Manual) Cancelled Band Neutrophils % Cancelled Lymphocytes % (Manual) Cancelled Prolymphocyte % Cancelled Reactive Lymphs % (Man) Cancelled Monocytes % (Manual) Cancelled Eosinophils % (Manual) Cancelled Basophils % (Manual) Cancelled Metamyelocytes % (Man) Cancelled Myelocytes % (Man) Cancelled Promyelocytes % (Man) Cancelled Blast Cells % (Manual) Cancelled Plasma Cell % (Manual) Cancelled Other Cells % Cancelled Nucleated RBC % Cancelled Neutrophils # (Manual) Cancelled Band Neutrophils # Cancelled Total Absolute Neuts Cancelled Lymphocytes # (Manual) Cancelled Prolymphocyte # Cancelled Reactive Lymphs # Cancelled Total Abs Lymphocytes Cancelled Monocytes # (Manual) Cancelled Eosinophils # (Manual) Cancelled Basophils # (Manual) Cancelled Metamyelocytes # (Man) Cancelled Myelocytes # (Manual) Cancelled Promyelocytes # (Man) Cancelled Blast Cells # (Man) Cancelled Plasma Cell # (Manual) Cancelled Other Cells # Cancelled Nucleated RBCs # (Man) Cancelled Hypersegmented Neuts Cancelled Hyposegmented Neuts Cancelled Hypogranular Neuts Cancelled Large Granular Lymphs Cancelled # Lrg Granular Lymphs Cancelled Hairy Cells Cancelled Smudge Cells Cancelled Toxic Granulation Cancelled Toxic Vacuolation Cancelled Dohle Bodies Cancelled Isaura Rods Cancelled Platelet Estimate Cancelled Hypogranular Platelets Cancelled Clumped Platelets Cancelled Giant Platelets Cancelled Platelet Satelliting Cancelled RBC Morphology Cancelled Polychromasia Cancelled Hypochromasia Cancelled Poikilocytosis Cancelled Basophilic Stippling Cancelled Anisocytosis Cancelled Microcytosis Cancelled Macrocytosis Cancelled Spherocytes Cancelled Pappenheimer Bodies Cancelled Sickle Cells Cancelled Target Cells Cancelled Tear Drop Cells Cancelled Ovalocytes Cancelled Stomatocytes Cancelled Choudhary[place] Bodies Cancelled Echinocytes Cancelled Acanthocytes (Spur) Cancelled Rouleaux Cancelled RBC Agglutinates Cancelled Schistocytes Cancelled [place] Cell Cancelled Sodium 135 L (136-145) mmol/L Potassium TNP Chloride 94 L (98-107) mmol/L Carbon Dioxide 34 H (21-32) mmol/L Anion Gap 7 (3-11) BUN 10 (6-23) mg/dl Creatinine 0.73 (0.6-1.2) mg/dl Est Cr Clr Drug Dosing Not Reportable Est GFR ( Amer) 100.9 ml/min Est GFR (Non-Af Amer) 87.0 ml/min BUN/Creatinine Ratio 13.7 (10-20) Glucose 113 H (70-99(Fasting)) mg/dl Lactate 1.0 (0.4-2.0) mmol/L Calcium 9.5 (8.5-10.1) mg/dl Magnesium 1.8 (1.7-2.4) mg/dl Total Bilirubin 0.7 (0.2-1.0) mg/dl AST TNP ALT 10 (7-52) U/L Alkaline Phosphatase 111 H (34-104) U/L Troponin I High Sens 11.3 D (0-14) pg/ml Total Protein 8.6 H (6.0-8.3) gm/dl Albumin 3.9 (3.4-5.0) gm/dl Globulin 4.7 H (2.5-4.0) gm/dl Albumin/Globulin Ratio 0.8 L (0.9-2) Blood Parasites ID Cancelled 05/08/22 05/08/22 Range/Units 09:56 09:56 WBC 18.52 H RBC 4.86 Hgb 14.5 Hct 45.1 H MCV 92.8 MCH 29.8 MCHC 32.2 RDW Std Deviation 46.8 H RDW Coeff of Ly 13.7 Plt Count 310 MPV 9.4 Immature Gran % (Auto) 1.0 Neut % (Auto) 68.5 Lymph % (Auto) 21.2 [place] % (Auto) 7.5 Eos % (Auto) 1.5 Baso % (Auto) 0.3 Neut # (Auto) 12.70 H Lymph # (Auto) 3.93 H [place] # (Auto) 1.38 H Eos # (Auto) 0.27 Baso # (Auto) 0.06 Immature Gran # (Auto) 0.18 H Absolute Nucleated RBC Nucleated RBC % (auto) Neutrophils % (Manual) Band Neutrophils % Lymphocytes % (Manual) Prolymphocyte % Reactive Lymphs % (Man) Monocytes % (Manual) Eosinophils % (Manual) Basophils % (Manual) Metamyelocytes % (Man) Myelocytes % (Man) Promyelocytes % (Man) Blast Cells % (Manual) Plasma Cell % (Manual) Other Cells % Nucleated RBC % Neutrophils # (Manual) Band Neutrophils # Total Absolute Neuts Lymphocytes # (Manual) Prolymphocyte # Reactive Lymphs # Total Abs Lymphocytes Monocytes # (Manual) Eosinophils # (Manual) Basophils # (Manual) Metamyelocytes # (Man) Myelocytes # (Manual) Promyelocytes # (Man) Blast Cells # (Man) Plasma Cell # (Manual) Other Cells # Nucleated RBCs # (Man) Hypersegmented Neuts Hyposegmented Neuts Hypogranular Neuts Large Granular Lymphs # Lrg Granular Lymphs Hairy Cells Smudge Cells Toxic Granulation Toxic Vacuolation Dohle Bodies Isaura Rods Platelet Estimate Hypogranular Platelets Clumped Platelets Giant Platelets Platelet Satelliting RBC Morphology Polychromasia Hypochromasia Poikilocytosis Basophilic Stippling Anisocytosis Microcytosis Macrocytosis Spherocytes Pappenheimer Bodies Sickle Cells Target Cells Tear Drop Cells Ovalocytes Stomatocytes Choudhary-[place] Bodies Echinocytes Acanthocytes (Spur) Rouleaux RBC Agglutinates Schistocytes [place] Cell Sodium (136-145) mmol/L Potassium 4.0 Chloride (98-107) mmol/L Carbon Dioxide (21-32) mmol/L Anion Gap (3-11) BUN (6-23) mg/dl Creatinine (0.6-1.2) mg/dl Est Cr Clr Drug Dosing Est GFR ( Amer) ml/min Est GFR (Non-Af Amer) ml/min BUN/Creatinine Ratio (10-20) Glucose (70-99(Fasting)) mg/dl Lactate (0.4-2.0) mmol/L Calcium (8.5-10.1) mg/dl Magnesium (1.7-2.4) mg/dl Total Bilirubin (0.2-1.0) mg/dl AST 12 L ALT (7-52) U/L Alkaline Phosphatase (34-104) U/L Troponin I High Sens (0-14) pg/ml Total Protein (6.0-8.3) gm/dl Albumin (3.4-5.0) gm/dl Globulin (2.5-4.0) gm/dl Albumin/Globulin Ratio (0.9-2) Blood Parasites ID Administered Medications Albuterol (Albut/Ipratrop 3mg/0.5mg Neb 3 Ml Vial) 3 ml INH Q6R SASCHA Stop: 06/07/22 12:59 Last Admin: 05/08/22 14:35 Dose: 3 ml Documented By: HS Miscellaneous (Patient's Height &/Or Weight Needed) 1 each N/A Q2H SASCHA Stop: 05/08/22 23:46 Last Admin: 05/08/22 14:24 Dose: 1 each Documented By: HS Discontinued Medications Albuterol (Albut/Ipratrop 3mg/0.5mg Neb 3 Ml Vial) 3 ml NEB NOW STA; Protocol Stop: 05/08/22 08:37 Last Admin: 05/08/22 09:06 Dose: 3 ml Documented By: HG Albuterol (Albut/Ipratrop 3mg/0.5mg Neb 3 Ml Vial) Confirm Administered Dose 3 ml .ROUTE .STK-MED ONE Stop: 05/08/22 08:38 Last Admin: 05/08/22 09:06 Dose: Not Given Documented By: HG Albuterol (Albut/Ipratrop 3mg/0.5mg Neb 3 Ml Vial) 3 ml NEB NOW STA; Protocol Stop: 05/08/22 10:16 Last Admin: 05/08/22 11:10 Dose: 3 ml Documented By: HS Sodium Chloride (Nss 1000ml) 500 mls @ 999 mls/hr IV .Q31M ONE Stop: 05/08/22 09:06 Last Infusion: 05/08/22 11:31 Dose: 0 mls/hr Documented By: Admin: 05/08/22 09:26 Dose: 999 mls/hr Documented By: HG Ceftriaxone Sodium (Rocephin) 2,000 mg in 70 mls @ 140 mls/hr IV NOW STA Stop: 05/08/22 10:44 Last Infusion: 05/08/22 12:06 Dose: 0 mls/hr Documented By: Admin: 05/08/22 11:10 Dose: 140 mls/hr Documented By: HS Sodium Chloride (Nss 1000ml) 500 mls @ 999 mls/hr IV .Q31M ONE Stop: 05/08/22 10:46 Last Infusion: 05/08/22 12:06 Dose: 0 mls/hr Documented By: Admin: 05/08/22 11:10 Dose: 999 mls/hr Documented By: HS Azithromycin 500 mg/ Dextrose 255 mls @ 127.5 mls/hr IV NOW STA Stop: 05/08/22 13:14 Last Infusion: 05/08/22 15:09 Dose: 0 mls/hr Documented By: Admin: 05/08/22 13:01 Dose: 127.5 mls/hr Documented By: HG Methylprednisolone (Methylprednisolone 125 Mg/2 Ml Vial) 80 mg IV NOW STA Stop: 05/08/22 08:37 Last Admin: 05/08/22 09:26 Dose: 80 mg Documented By: HG Imaging Data Radiologist's Impression: Chest X-Ray 05/08/22 08:37 SINGLE VIEW CHEST CLINICAL HISTORY: Dyspnea. FINDINGS: An AP, portable, upright chest radiograph is compared to study dated 03/02/2021 and correlated with chest CT dated 02/25/2022. The cardiomediastinal silhouette is unremarkable. There are low lung volumes with chronic elevation of the right hemidiaphragm and bibasilar atelectasis. No large pleural effusion or pneumothorax is seen. The skeletal structures are osteopenic. The bony thorax is grossly intact. IMPRESSION: Low lung volumes with no acute cardiopulmonary abnormality. ACT 112: Negative or not required by law. Electronically signed by: Giorgio Watson M.D. 05/08/2022 9:35 AM Discharge Plan Visit Data Chief Complaint: Shortness of Breath/Dyspnea Stated Complaint: SOB, CONGESTED, RIB PAIN, COUGH ED Provider: Giorgio Lindquist Discharge Problem: Respiratory distress, Leukocytosis, Wheezing, Acute bronchitis, COPD exacerbation Patient Disposition: Admitted As Inpatient Condition: Fair Discharge Instructions Interventions: ED Discharge Assessment Last Done: 05/08/22 12:50
--- NOTE | 2022-05-08 09:36 | XRay Report ---
SINGLE VIEW CHEST CLINICAL HISTORY: Dyspnea. FINDINGS: An AP, portable, upright chest radiograph is compared to study dated 03/02/2021 and correlat ed with chest CT dated 02/25/2022. The cardiomediastinal silhouette is unremarkable. There are low laura g volumes with chronic elevation of the right hemidiaphragm and bibasilar atelectasis. No large pleur al effusion or pneumothorax is seen. The skeletal structures are osteopenic. The bony thorax is gross ly intact. IMPRESSION: Low lung volumes with no acute cardiopulmonary abnormality. ACT 112: Negative or not required by law. Electronically signed by: Giorgio Watson M.D. 05/08/2022 9:35 AM
[2022-05-08 09:46] LABS: Alanine Aminotransferase 10 U/L (7-52); Albumin Globulin Ratio 0.8 (0.9-2); Albumin Level 3.9 gm/dl (3.4-5.0); Alkaline Phosphatase 111 U/L (34-104); Anion Gap 7 (3-11); BUN Creatinine Ratio 13.7 (10-20); Bilirubin,Total 0.7 mg/dl (0.2-1.0); Blood Urea Nitrogen 10 mg/dl (6-23); Calcium 9.5 mg/dl (8.5-10.1); Carbon Dioxide 34 mmol/L (21-32); Chloride 94 mmol/L (98-107); Est GFR (African American) 100.9 ml/min; Globulin 4.7 gm/dl (2.5-4.0); Glucose 113 mg/dl (70-99(Fasting)); Magnesium 1.8 mg/dl (1.7-2.4); Sodium 135 mmol/L (136-145); Total Protein 8.6 gm/dl (6.0-8.3); Troponin I High Sensitivity 11.3 pg/ml (0-14)
[2022-05-08 10:06] LABS: Basophils # (auto) 0.06 K/uL (0-0.2); Basophils % (auto) 0.3 %; Eosinophils # (auto) 0.27 K/uL (0-0.50); Eosinophils % (auto) 1.5 %; Hematocrit (blood only) 45.1 % (34.1-44.9); Hemoglobin 14.5 g/dl (12.0-16.0); Immature Granulocytes # (auto) 0.18 K/uL (0.00-0.02); Lymphocytes # (auto) 3.93 K/uL (1.2-3.4); Lymphocytes % (auto) 21.2 %; Mean Corpuscular Hemoglobin 29.8 pg (25.0-34.0); Mean Corpuscular Hgb Conc 32.2 g/dL (32.0-36.0); Mean Corpuscular Volume 92.8 fL (80.0-100.0); Mean Platelet Volume 9.4 fL (9.4-12.3); Monocytes # (auto) 1.38 K/uL (0.24-0.82); Monocytes % (auto) 7.5 %; Neutrophils % (auto) 68.5 %; Platelet Count 310 K/uL (130-400); RDW Coefficient of Variation 13.7 % (11.5-14.5); RDW Standard Deviation 46.8 fL (36.4-46.3); Red Blood Count 4.86 M/uL (3.93-5.22); White Blood Count 18.52 K/ul (4.8-10.8)
[2022-05-08] MEDS ORDERED: cefTRIAXone SODIUM 2,000 MG/70 ML BAG IV STA (10:15)
[2022-05-08 10:17] LABS: Adenovirus PCR Not Detected (NotDetected); Bordetella parapertussis PCR Not Detected (NotDetected); Bordetella pertussis PCR Not Detected (NotDetected); Chlamydia pneumoniae PCR Not Detected (NotDetected); Coronavirus 229E PCR Not Detected (NotDetected); Coronavirus CoV-2 (COVID19)PCR Not Detected (NotDetected); Coronavirus HKU1 PCR Not Detected (NotDetected); Coronavirus NL63 PCR Not Detected (NotDetected); Coronavirus OC43PCR Not Detected (NotDetected); Human Metapneumovirus PCR Not Detected (NotDetected); Influenza A PCR Not Detected (NotDetected); Influenza B PCR Not Detected (NotDetected); Mycoplasma pneumoniae PCR Not Detected (NotDetected); Parainfluenza Virus 1 PCR Not Detected (NotDetected); Parainfluenza Virus 2 PCR Not Detected (NotDetected); Parainfluenza Virus 3 PCR Not Detected (NotDetected); Parainfluenza Virus 4 PCR Not Detected (NotDetected); Respiratory Syncytial VirusPCR Not Detected (NotDetected); Rhinovirus/Enterovirus PCR Not Detected (NotDetected)
--- NOTE | 2022-05-08 10:34 | History & Physical Report ---
Date of Service May 08, 2022 Assessment & Plan (1) Acute and chronic respiratory failure: Plan: - Patient is tachypneic with respiratory muscle use, using home O2 requirement 2 L NC. - With SHANI, obesity hypoventilation syndrome, and COPD 2/2 chemical exposure at work. - ED course: Albuterol neb x2, 80 mg methylprednisolone, Rocephin, NSS. - She has an elevated WBC, despite CXR unrevealing for pulmonary disease, bio fire respiratory panel negative throughout. - For now, will treat as a COPD exacerbation/bronchitis, continue nebulizer treatments scheduled throughout the day and as needed at night, 40 mg IV Solu- Medrol every 8 hours, continue antibiotics. (2) Obesity hypoventilation syndrome: Plan: - 2L NC at all times. BiPAP at night, however is noncompliant. - Weight loss strongly encouraged. (3) Sleep apnea: (4) Obesity, morbid, BMI 40.0-49.9: (5) Intertrigo: Plan: - In abdominal skin fold, will treat with topical ketoconazole BID for now, encourage nursing staff/patient to apply wicking material in skin folds to absorb excess moisture. (6) Vocal cord paresis: Plan: - Diagnosed in 2014, s/p silicone injections with Dr. Hauser. Still chronically hoarse voice. (7) Restless legs syndrome: Plan: - Continue ropinirole 0.5 mg p.o. at night. (8) Primary hypothyroidism: Plan: - Continue levothyroxine 137 mcg daily. (9) Lumbar spinal stenosis: Plan: - Exacerbated by obesity. mobility very limited. - Lidocaine patches prn. - Ambulation encouraged. (10) Depression: Plan: - Continue Zoloft, Wellbtrin. - Amitriptyline for migraine ppx. (11) CKD (chronic kidney disease): Plan: - Renal function stable, continue to follow. Plan - Admit to med/tele. - SCDs, Lovenox for ppx. - Full Code. History of Present Illness Chief Complaint: SOB, congestion x 5 days Primary Care Provider: Salome Snyder MD Karoline Samaniego is a 66-year-old female with past medical history significant for COPD and obesity hypoventilation syndrome, hypothyroidism, depression, low back pain, and RLS who is presenting today with shortness of breath. Beginning 5 days ago on 05/04, patient began coughing and feeling congested, although could not cough anything up. She has progressively felt more short of breath throughout the weekend, believes she had a fever at some point, and now i s having difficulty sleeping due to her cough keeping her up at night and being painful, causing chest/rib pain. She does not have an appetite and has not been keeping up with fluids. She has not had any known sick contacts. She does wear 2 L chronically and is prescribed BiPAP at night, however cannot tolerate it. No tobacco use. On presentation to the ED, she was tachypneic, hypoxic at 88% on room air, mildly tachycardic, and mildly hypertensive. Now on 2 L NC, with SaO2 >92%. She is an elevated WBC of 18.5, neutrophil predominant. BMP largely unremarkable, renal function at baseline, without transaminitis. Troponin 11.3. Her protein and globulin are both mildly elevated. Bio fire respiratory panel negative throughout. Her CXR showed chronic elevation of the right hemidiaphrag m with bibasilar atelectasis, without any pleural effusion, pneumothorax, or evidence of pneumonia seen. In the ED, she received 2 nebulizer treatments, IV steroids, and fluids and reports some improvement in symptoms. Allergies Allergy/AdvReac Type Severity Reaction Status Date / Time doxycycline Allergy Unknown GI UPSET Verified 11/13/21 14:55 duloxetine Allergy Unknown lip Verified 11/13/21 14:55 swelling enalapril AdvReac Mild Nausea Verified 11/13/21 14:55 oxycodone AdvReac Mild NAUSEA Verified 11/13/21 14:55 pilocarpine AdvReac Mild Nausea Verified 11/13/21 14:55 [From [place] (pilocarpine)] Home Medications Medication Instructions Recorded Confirmed Type albuterol sulfate 90 mcg/actuation 2 puff inhalation Q6H PRN 04/19/21 05/08/22 Rx aerosol inhaler (ProAir HFA) shortness of breath or wheezing #8.5 grams Oxygen Home #2 ea 05/31/21 11/13/21 Rx multivitamin 1 tab PO DAILY 08/02/21 05/08/22 History ropinirole 1 mg tablet 0.5 mg PO HS #90 tabs 04/25/22 10/25/22 Rx bupropion HCl 100 mg tablet,12 hr 100 mg PO QAM #90 ea 02/19/22 05/08/22 Rx sustained-release (Wellbutrin SR) sertraline 100 mg tablet See Rx Instructions .Route 04/16/22 05/08/22 Rx .COMPLEX #90 tabs levothyroxine 137 mcg tablet 137 mcg PO QAM #30 tabs 04/26/22 05/08/22 Rx amitriptyline 50 mg tablet 25 mg PO HS #90 tabs 04/27/22 05/08/22 Rx Past Med/Surg History Medical History Cardiac murmur dx as child Depression DVT (deep venous thrombosis) right leg > several yrs ago > due to control pills High blood pressure Hypothyroidism Kidney disease pt unaware Lumbar spondylosis Migraine hx of Morbid obesity with BMI of 50.0-59.9, adult Restless leg syndrome Sleep apnea no cpap Tremor Vocal cord dysfunction Surgical History H/O tubal ligation H/O: hysterectomy History of colonoscopy History of dilatation and curettage x3 History of throat surgery vocal cord surgery History of tonsillectomy History of tooth extraction Hx of cholecystectomy Hx of right knee surgery arthroscopic Family History Father No problems noted. 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 Beliefs That Will Affect Care: None marital status: / Current Living Situation: Alone current occupational status: retired Feels Safe at Home: Yes Childhood Exposure to Second-Hand Smoke: Yes Dental Care, Regularly: No Physical Activity Frequency: Does not Exercise Seatbelt Use: always Sunscreen Use: No Assistive Devices: Cane, Glasses and Walker Review of Systems Review of Systems: Constitutional: Fever/chills at home this weekend, weakness, fatigue, anorexia; no myalgias, night sweats Eyes: No diplopia, no worsening or blurred vision ENT: normal hearing, no trouble swallowing Respiratory: Productive cough and dyspnea both at rest and worse on exertion for 5 days Cardiovascular: Endorses chest/rib pain with coughing, not at rest or with exertion; no tightness or palpitations Abdomen: Intermittent nausea without abdominal pain or vomiting, diarrhea or constipation : Denies dysuria, hematuria, increased urgency/frequency, urinary retention Musculoskeletal: No joint pain, calf pain, swelling Neurologic: No weakness, numbness/tingling, or balance problems Psychiatric: No anxiety or depression Skin: No rash or itch Physical Exam Physical Exam: General: awake, alert, voice is hoarse, patient is speaking in short sentences with notable shortness of breath and coughing with position changes Head: Normocephalic, atraumatic ENT: PERRL, EOMI, no pharyngeal exudate, mucous membranes moist Chest: Wheezes heard throughout both lung griffin with diminished lung sounds in lower lung griffin bilaterally Cardiac: Tachycardic rate, regular rhythm, no murmur, no JVD, normal peripheral pulses, good capillary refill Abdominal: There is an erythematous rash along one of her abdominal folds without notable skin breakdown; NABS x 4 quadrants, soft, nontender to palpation, no rebound, guarding or tenderness Extremities: Normal inspection, no peripheral edema or erythema, calfs nontender to palpation Psych: Normal mood and affect Neuro: AAO x 3, strength intact bilaterally and rated 5/5, no motor deficits, speech is clear, no peripheral sensory deficits Skin: no rash or erythema Results & Data Results & Data ([facility]) Vital Signs (Past 12 Hours) Vital Signs Temp Pulse Resp BP Pulse Ox O2 Del Method 05/08/22 09:04 110 H 22 94 Nasal Cannula 05/08/22 09:04 94 Nasal Cannula 05/08/22 08:17 37 C 112 H 20 141/83 H 88 L Room Air Laboratory Results Abnormal lab results 05/08/22 05/08/22 05/08/22 Range/Units 08:56 09:56 09:56 WBC 18.52 H (4.8-10.8) K/ul Hct 45.1 H (34.1-44.9) % RDW Std Deviation 46.8 H (36.4-46.3) fL Neut # (Auto) 12.70 H (1.4-6.5) K/uL Lymph # (Auto) 3.93 H (1.2-3.4) K/uL Cataño # (Auto) 1.38 H (0.24-0.82) K/uL Immature Gran # (Auto) 0.18 H (0.00-0.02) K/uL Sodium 135 L (136-145) mmol/L Chloride 94 L (98-107) mmol/L Carbon Dioxide 34 H (21-32) mmol/L Glucose 113 H (70-99(Fasting)) mg/dl AST 12 L (13-39) U/L Alkaline Phosphatase 111 H (34-104) U/L Total Protein 8.6 H (6.0-8.3) gm/dl Globulin 4.7 H (2.5-4.0) gm/dl Albumin/Globulin Ratio 0.8 L (0.9-2) Diagnostic Findings Chest X-Ray 05/08/22 08:37 SINGLE VIEW CHEST CLINICAL HISTORY: Dyspnea. FINDINGS: An AP, portable, upright chest radiograph is compared to study dated 03/02/2021 and correlated with chest CT dated 02/25/2022. The cardiomediastinal silhouette is unremarkable. There are low lung volumes with chronic elevation of the right hemidiaphragm and bibasilar atelectasis. No large pleural effusion or pneumothorax is seen. The skeletal structures are osteopenic. The bony thorax is grossly intact. IMPRESSION: Low lung volumes with no acute cardiopulmonary abnormality. ACT 112: Negative or not required by law. Electronically signed by: Giorgio Watson M.D. 05/08/2022 9:35 AM ECG Additional Comments: Sinus tachycardia, Nonspecific ST abnormality Abnormal ECG When compared with ECG of 25-FEB-2022 21:47, ST now depressed in Inferior leads ST now depressed in Anterolateral leads. Code Status & VTE Plan Code Status Full Code. Supervising Physician Co-Signing Physician Notes Patient was seen and examined independently I discussed the case with Marychuy RUSSO I reviewed pertinent past medical social family history and also the plan of care and agree with the plan of care. Patient here with worsening shortness of breath really she is a component of obesity hypoventilation syndrome. She has not been wearing her BiPAP at night. Additionally she looks that she has an elevated right hemidiaphragm that is chronic and most likely hiatal hernia. Subsequently with her wheezing and now no defined pneumonia we will treat her for COPD exacerbation with bronchitis. If she improves her IV antibiotics can be de-escalated to oral antibiotics but will continue p.o. steroid taper and inhaled bronchodilators In the emergency room she is using accessory muscles of respiration, and respiration rate is rapid. She is able to speak in partial sentences. She is decreased air movement at the bases of her lungs with some wheezes in the mid lung griffin and apices. Will treat for acute on chronic respiratory failure with steroids bronchodilators and antibiotics Any exceptions will be noted below PG Care Time/CCT Total # of Minutes Spent Total Time Spent with Patient: Total time spent is greater than 50% in coordination of care (as documented) at patient's floor/unit and/or counseling patient: Coding Level of Care Code 20838 Initial Inpt Care Lvl 3 Diagnoses Acute and chronic respiratory failure J96.20 Obesity hypoventilation syndrome E66.2 Sleep apnea G47.30 Obesity, morbid, BMI 40.0-49.9 E66.01 Intertrigo L30.4 Vocal cord paresis J38.00 Restless legs syndrome G25.81 Primary hypothyroidism E03.9 Lumbar spinal stenosis M48.061 Depression F32.9 CKD (chronic kidney disease) N18.9
[2022-05-08] MEDS ORDERED: AZITHROMYCIN 500 MG in DEXTROSE 5% 250 ML IV STA (11:15)
[2022-05-08] MEDS ORDERED: ACETAMINOPHEN 325 MG TAB PO PRN (12:49)
[2022-05-08] MEDS ORDERED: ONDANSETRON INJ 2 MG/ML 2 ML VIAL IV PRN (12:49)
[2022-05-08] MEDS ORDERED: LIDOCAINE 5% 1 PATCH TD PRN (12:49)
[2022-05-08] MEDS ORDERED: ALUMINUM/MAGNESIUM SUSP 30 ML UDC PO PRN (12:49)
[2022-05-08] MEDS ORDERED: ALBUT/IPRATROP 3MG/0.5MG NEB 3 ML VIAL NEB PRN (12:49)
[2022-05-08] MEDS ORDERED: POLYETHYLENE (MIRALAX) 17 GM PACK PO PRN (12:49)
[2022-05-08] MEDS ORDERED: ALBUTEROL HFA 8 GM INHALER INH PRN (12:49)
[2022-05-08] MEDS: Patient's HEIGHT &/or WEIGHT Needed SCH ×5 (14:24→22:04)
[2022-05-08] MEDS: ALBUT/IPRATROP 3MG/0.5MG NEB 3 ML VIAL INH SCH ×2 (14:35→20:54)
[2022-05-08] MEDS: methylPREDNISolone 40 MG in SYRINGE 0 ML IV SCH (17:52)
[2022-05-08] MEDS ORDERED: ALBUT/IPRATROP 3MG/0.5MG NEB 3 ML VIAL INH SCH (19:00)
[2022-05-08] MEDS: rOPINIRole HCL 0.25 MG TABLET PO SCH (19:42)
[2022-05-08] MEDS: AMITRIPTYLINE HCL 25 MG TAB PO SCH (19:42)
[2022-05-08] MEDS: guaiFENesin 600 MG TABCR PO SCH (19:44)
[2022-05-08] MEDS: ENOXAPARIN INJ 40 MG/0.4 ML SYR SQ SCH (19:44)
[2022-05-08] MEDS: KETOCONAZOLE 2% CR 15 GM TUBE EXT SCH (22:04)
[2022-05-09] MEDS: ALBUT/IPRATROP 3MG/0.5MG NEB 3 ML VIAL INH SCH ×4 (00:53→20:18)
[2022-05-09] MEDS: methylPREDNISolone 40 MG in SYRINGE 0 ML IV SCH ×3 (01:53→16:27)
[2022-05-09] MEDS: LEVOTHYROXINE SODIUM 137 MCG TABLET PO SCH (06:22)
[2022-05-09 06:29] LABS: Basophils # (auto) 0.04 K/uL (0-0.2); Basophils % (auto) 0.3 %; Hematocrit (blood only) 43.3 % (34.1-44.9); Immature Granulocytes # (auto) 0.37 K/uL (0.00-0.02); Immature Granulocytes % (auto) 2.6 %; Lymphocytes # (auto) 1.49 K/uL (1.2-3.4); Lymphocytes % (auto) 10.7 %; Mean Corpuscular Hemoglobin 29.6 pg (25.0-34.0); Mean Corpuscular Hgb Conc 32.3 g/dL (32.0-36.0); Mean Corpuscular Volume 91.5 fL (80.0-100.0); Mean Platelet Volume 9.6 fL (9.4-12.3); Monocytes # (auto) 0.43 K/uL (0.24-0.82); Monocytes % (auto) 3.1 %; Neutrophils # (auto) 11.66 K/uL (1.4-6.5); Neutrophils % (auto) 83.3 %; Platelet Count 339 K/uL (130-400); RDW Coefficient of Variation 13.4 % (11.5-14.5); RDW Standard Deviation 45.3 fL (36.4-46.3); Red Blood Count 4.73 M/uL (3.93-5.22); White Blood Count 13.99 K/ul (4.8-10.8)
[2022-05-09 07:08] LABS: Albumin Globulin Ratio 0.9 (0.9-2); Albumin Level 3.8 gm/dl (3.4-5.0); Bilirubin,Total 0.3 mg/dl (0.2-1.0); Calcium 9.1 mg/dl (8.5-10.1); Creatinine Clr Calc Pharmacy 137.5 ml/min; Est GFR (African American) 111.6 ml/min; Est GFR (Non-African American) 96.3 ml/min; Globulin 4.3 gm/dl (2.5-4.0); Potassium 4.4 mmol/L (3.5-5.1); Total Protein 8.1 gm/dl (6.0-8.3)
[2022-05-09] MEDS: ENOXAPARIN INJ 40 MG/0.4 ML SYR SQ SCH ×2 (08:29→20:31)
[2022-05-09] MEDS: KETOCONAZOLE 2% CR 15 GM TUBE EXT SCH ×2 (08:30→20:32)
[2022-05-09] MEDS: SERTRALINE HCL 100 MG TABLET PO SCH (08:31)
[2022-05-09] MEDS: guaiFENesin 600 MG TABCR PO SCH ×2 (08:31→20:32)
[2022-05-09] MEDS: buPROPion SR 100 MG TABCR PO SCH (08:31)
[2022-05-09] MEDS: MULTIVITAMIN TAB PO SCH (08:31)
[2022-05-09] MEDS: FLUTICASONE/VILANTEROL 100/25MCG 14 PUFFS/INHALER INH SCH (08:32)
[2022-05-09] MEDS: cefTRIAXone SODIUM 2,000 MG in DEXTROSE 5% 50 ML IV SCH (08:36)
[2022-05-09] MEDS: AZITHROMYCIN 500 MG in DEXTROSE 5% 250 ML IV SCH (11:02)
--- NOTE | 2022-05-09 15:21 | Hospitalist Progress Note ---
Date of Service May 09, 2022 Assessment & Plan (1) Acute and chronic respiratory failure: Plan: - Secondary to COPD Exacerbation -Patient at 2l home oxygen baseline -Currently on 4 L -SOB and wheeze are much better -Will continue Duonebs scheduled and PRN, steroids, abx -Change steroids to Oral tomorrow (2) Obesity hypoventilation syndrome: Plan: - 2L NC at all times. BiPAP at night, however is noncompliant. - Weight loss strongly encouraged. (3) Sleep apnea: (4) Obesity, morbid, BMI 40.0-49.9: (5) Intertrigo: Plan: - In abdominal skin fold, will treat with topical ketoconazole BID for now, encourage nursing staff/patient to apply wicking material in skin folds to absorb excess moisture. (6) Vocal cord paresis: Plan: - Diagnosed in 2014, s/p silicone injections with Dr. Hauser. Still chronically hoarse voice. (7) Restless legs syndrome: Plan: - Continue ropinirole 0.5 mg p.o. at night. (8) Primary hypothyroidism: Plan: - Continue levothyroxine 137 mcg daily. (9) Lumbar spinal stenosis: Plan: - Exacerbated by obesity. mobility very limited. - Lidocaine patches prn. - Ambulation encouraged. (10) Depression: Plan: - Continue Zoloft, Wellbtrin. - Amitriptyline for migraine ppx. (11) CKD (chronic kidney disease): Plan: - Renal function stable, continue to follow. Plan - Admit to med/tele. - SCDs, Lovenox for ppx. - Full Code. Admission and Anticipated Discharge Date Admission Date: May 08, 2022 Subjective patient seen and examined, says SOB and wheeze are better, but still has some cough Review of Systems Review of Systems: All systems reviewed are negative, apart from the ones contained in the history. Physical Exam Physical Exam: The patient is awake, alert and oriented 3, morbidly obese HEENT--PERRL, EOMI, mucous membranes and oropharynx mildly dry Neck--supple. No JVD. No bruits. Thyroid normal, trachea midline, no adenopathy. Heart--normal S1 and S2. No murmurs, rubs or gallops. Lungs--Reduced air entry on auscvulation, some wheeze Abdomen--normal bowel sounds and soft. Mild epigastric and left sided abdominal pain Extremities--no cyanosis or clubbing. No edema. Dermatologic--normal skin turgor, normal color, no abnormal lymph nodes, no rash. Neurologic--cranial nerves II through XII grossly intact. Rheumatologic--normal range of motion. Psychiatric--normal affect. Results & Data Results & Data ([facility]) Vital Signs (Past 12 Hours) Vital Signs Temp Pulse Pulse Resp BP BP Pulse Ox 05/09/22 12:57 78 18 96 05/09/22 11:46 97.9 F 102 H 22 173/75 H 94 05/09/22 08:00 05/09/22 07:35 96 H 18 97 05/09/22 07:24 117 H 05/09/22 07:00 97.7 F 77 20 132/73 92 O2 Del Method O2 Flow Rate 05/09/22 12:57 Nasal Cannula 4 05/09/22 11:46 Nasal Cannula 4 05/09/22 08:00 4 05/09/22 07:35 Nasal Cannula 3 05/09/22 07:24 05/09/22 07:00 Nasal Cannula 2 PG Care Time/CCT Total # of Minutes Spent Total Time Spent with Patient: Total time spent is greater than 50% in coordination of care (as documented) at patient's floor/unit and/or counseling patient: Coding Level of Care Code 74125 Subseq Hosp Care Lvl 2 Diagnoses Acute and chronic respiratory failure J96.20 Obesity hypoventilation syndrome E66.2 Sleep apnea G47.30 Obesity, morbid, BMI 40.0-49.9 E66.01 Intertrigo L30.4 Vocal cord paresis J38.00 Restless legs syndrome G25.81 Primary hypothyroidism E03.9 Lumbar spinal stenosis M48.061 Depression F32.9 CKD (chronic kidney disease) N18.9 Time Spent (min) 35
[2022-05-09] MEDS: AMITRIPTYLINE HCL 25 MG TAB PO SCH (20:31)
[2022-05-09] MEDS: rOPINIRole HCL 0.25 MG TABLET PO SCH (20:32)
--- NOTE | 2022-05-09 23:18 | Electrocardiogram Report ---
Test Reason : Blood Pressure : / mmHG Vent. Rate : 111 BPM Atrial Rate : 111 BPM P-R Int : 128 ms QRS Dur : 086 ms QT Int : 324 ms P-R-T Axes : 064 087 061 degrees QTc Int : 440 ms Sinus tachycardia Nonspecific ST abnormality Abnormal ECG When compared with ECG of 25-FEB-2022 21:47, No significant change Confirmed by Arturo Colmenares ([id number]) on 05/09/2022 11:17:42 PM Referred By: REFERRED SELF Confirmed By:Arturo Colmenares
[2022-05-10] MEDS: ALBUT/IPRATROP 3MG/0.5MG NEB 3 ML VIAL INH SCH ×4 (00:41→19:37)
[2022-05-10] MEDS: methylPREDNISolone 40 MG in SYRINGE 0 ML IV SCH ×2 (00:54→07:36)
[2022-05-10] MEDS: LEVOTHYROXINE SODIUM 137 MCG TABLET PO SCH (05:46)
[2022-05-10] MEDS: DEXTROMETHORPHAN POLYMR COMPLX 30 MG/5 ML UDP PO PRN (05:46)
[2022-05-10] MEDS: cefTRIAXone SODIUM 2,000 MG in DEXTROSE 5% 50 ML IV SCH (07:35)
[2022-05-10] MEDS: ENOXAPARIN INJ 40 MG/0.4 ML SYR SQ SCH ×2 (07:35→20:15)
[2022-05-10] MEDS: buPROPion SR 100 MG TABCR PO SCH (07:36)
[2022-05-10] MEDS: KETOCONAZOLE 2% CR 15 GM TUBE EXT SCH ×2 (07:36→20:15)
[2022-05-10] MEDS: FLUTICASONE/VILANTEROL 100/25MCG 14 PUFFS/INHALER INH SCH (07:36)
[2022-05-10] MEDS: guaiFENesin 600 MG TABCR PO SCH ×2 (07:37→20:16)
[2022-05-10] MEDS: SERTRALINE HCL 100 MG TABLET PO SCH (07:37)
[2022-05-10] MEDS: MULTIVITAMIN TAB PO SCH (07:37)
[2022-05-10] MEDS: AZITHROMYCIN 500 MG in DEXTROSE 5% 250 ML IV SCH (11:07)
--- NOTE | 2022-05-10 15:05 | Hospitalist Progress Note ---
Date of Service May 10, 2022 Assessment & Plan (1) Acute and chronic respiratory failure: Plan: - Secondary to COPD Exacerbation -Patient at 2l home oxygen baseline -Currently on 4 L -Attempt at weaning resulted in desaturation -SOB and wheeze are much better -Will continue Duonebs scheduled and PRN, steroids, 40mg daily Prednisone, abx -Incentive spirometry -PT/OT (2) Obesity hypoventilation syndrome: Plan: - 2L NC at all times. BiPAP at night, however is noncompliant. - Weight loss strongly encouraged. (3) Sleep apnea: (4) Obesity, morbid, BMI 40.0-49.9: (5) Intertrigo: Plan: - In abdominal skin fold, will treat with topical ketoconazole BID for now, encourage nursing staff/patient to apply wicking material in skin folds to absorb excess moisture. (6) Vocal cord paresis: Plan: - Diagnosed in 2014, s/p silicone injections with Dr. Hauser. Still chronically hoarse voice. (7) Restless legs syndrome: Plan: - Continue ropinirole 0.5 mg p.o. at night. (8) Primary hypothyroidism: Plan: - Continue levothyroxine 137 mcg daily. (9) Lumbar spinal stenosis: Plan: - Exacerbated by obesity. mobility very limited. - Lidocaine patches prn. - Ambulation encouraged. (10) Depression: Plan: - Continue Zoloft, Wellbtrin. - Amitriptyline for migraine ppx. (11) CKD (chronic kidney disease): Plan: - Renal function stable, continue to follow. Plan - Admit to med/tele. - SCDs, Lovenox for ppx. - Full Code. Admission and Anticipated Discharge Date Admission Date: May 08, 2022 Subjective patient seen and examined, says SOB and wheeze are better, but still has some cough, productive of scant sputum Review of Systems Review of Systems: All systems reviewed are negative, apart from the ones contained in the history. Physical Exam Physical Exam: The patient is awake, alert and oriented 3, morbidly obese HEENT--PERRL, EOMI, mucous membranes and oropharynx mildly dry Neck--supple. No JVD. No bruits. Thyroid normal, trachea midline, no adenopathy. Heart--normal S1 and S2. No murmurs, rubs or gallops. Lungs--Reduced air entry on auscvulation, some wheeze Abdomen--normal bowel sounds and soft. Mild epigastric and left sided abdominal pain Extremities--no cyanosis or clubbing. No edema. Dermatologic--normal skin turgor, normal color, no abnormal lymph nodes, no rash. Neurologic--cranial nerves II through XII grossly intact. Rheumatologic--normal range of motion. Psychiatric--normal affect. Results & Data Results & Data ([facility]) Vital Signs (Past 12 Hours) Vital Signs Temp Pulse Pulse Resp BP BP Pulse Ox 05/10/22 14:55 98.1 F 102 H 20 148/78 H 93 05/10/22 14:11 105 H 18 94 05/10/22 10:50 98.2 F 98 H 20 127/76 91 05/10/22 07:30 05/10/22 07:31 97.9 F 90 20 120/70 96 05/10/22 07:12 96 H 18 96 05/10/22 07:08 84 05/10/22 03:19 97.9 F 111 H 18 121/70 92 O2 Del Method O2 Flow Rate 05/10/22 14:55 Nasal Cannula 3 05/10/22 14:11 Nasal Cannula 2 05/10/22 10:50 Nasal Cannula 3 05/10/22 07:30 Nasal Cannula 2 05/10/22 07:31 Nasal Cannula 3 05/10/22 07:12 Nasal Cannula 3 05/10/22 07:08 05/10/22 03:19 Nasal Cannula 3 PG Care Time/CCT Total # of Minutes Spent Total Time Spent with Patient: Total time spent is greater than 50% in coordination of care (as documented) at patient's floor/unit and/or counseling patient: Coding Level of Care Code 97728 Subseq Hosp Care Lvl 2 Diagnoses Acute and chronic respiratory failure J96.20 Obesity hypoventilation syndrome E66.2 Sleep apnea G47.30 Obesity, morbid, BMI 40.0-49.9 E66.01 Intertrigo L30.4 Vocal cord paresis J38.00 Restless legs syndrome G25.81 Primary hypothyroidism E03.9 Lumbar spinal stenosis M48.061 Depression F32.9 CKD (chronic kidney disease) N18.9 Time Spent (min) 35
[2022-05-10] MEDS: AMITRIPTYLINE HCL 25 MG TAB PO SCH (20:16)
[2022-05-10] MEDS: rOPINIRole HCL 0.25 MG TABLET PO SCH (20:16)
[2022-05-11] MEDS: ALBUT/IPRATROP 3MG/0.5MG NEB 3 ML VIAL INH SCH ×4 (00:27→20:02)
[2022-05-11] MEDS: DEXTROMETHORPHAN POLYMR COMPLX 30 MG/5 ML UDP PO PRN (03:09)
[2022-05-11] MEDS: LEVOTHYROXINE SODIUM 137 MCG TABLET PO SCH (06:41)
[2022-05-11] MEDS: ENOXAPARIN INJ 40 MG/0.4 ML SYR SQ SCH ×2 (08:00→20:36)
[2022-05-11] MEDS: SERTRALINE HCL 100 MG TABLET PO SCH (08:01)
[2022-05-11] MEDS: buPROPion SR 100 MG TABCR PO SCH (08:01)
[2022-05-11] MEDS: predniSONE 20 MG TAB PO SCH (08:01)
[2022-05-11] MEDS: MULTIVITAMIN TAB PO SCH (08:02)
[2022-05-11] MEDS: guaiFENesin 600 MG TABCR PO SCH ×2 (08:02→20:31)
[2022-05-11] MEDS: KETOCONAZOLE 2% CR 15 GM TUBE EXT SCH ×2 (08:02→20:31)
[2022-05-11] MEDS: cefTRIAXone SODIUM 2,000 MG in DEXTROSE 5% 50 ML IV SCH (08:03)
[2022-05-11] MEDS: FLUTICASONE/VILANTEROL 100/25MCG 14 PUFFS/INHALER INH SCH (08:03)
[2022-05-11 08:06] LABS: Hemoglobin 13.1 g/dl (12.0-16.0); Mean Corpuscular Hemoglobin 29.3 pg (25.0-34.0); Mean Corpuscular Volume 91.7 fL (80.0-100.0); Mean Platelet Volume 9.5 fL (9.4-12.3); Platelet Count 344 K/uL (130-400); RDW Standard Deviation 47.2 fL (36.4-46.3); Red Blood Count 4.47 M/uL (3.93-5.22); White Blood Count 13.99 K/ul (4.8-10.8)
[2022-05-11 08:36] LABS: Creatinine Clr Calc Pharmacy 103.7 ml/min; Est GFR (African American) 90.3 ml/min; Est GFR (Non-African American) 77.9 ml/min
[2022-05-11] MEDS: AZITHROMYCIN 500 MG in DEXTROSE 5% 250 ML IV SCH (11:22)
--- NOTE | 2022-05-11 13:31 | Pulmonary Consultation ---
Date of Consultation May 11, 2022 Assessment & Plan (1) Sleep apnea: (2) Acute on chronic respiratory failure with hypoxia and hypercapnia: (3) Vocal cord dysfunction: (4) Morbid obesity with BMI of 50.0-59.9, adult: (5) Restrictive lung disease: (6) Elevated hemidiaphragm: Plan CT chest 02/25/2022 personally reviewed: Elevated right hemidiaphragm with segmental atelectasis right lower lobe Mosaicism appreciated upper and lower lobes No mediastinal lymphadenopathy PFT 04/20/2021 personally reviewed: Moderate to severe restrictive lung disease, no obstruction, insignificant bronchodilator response FVC 1.22 L 39%, FEV1 0.96 L 39%, FEV1/FVC 78%, RV 87%, TLC 60%, RV/TLC 143% ABG 05/11/2022: 7.37/65/88 on 3 L nasal cannula --Acute on chronic hypercapnic hypoxic respiratory failure Patient does not seem to have an obstructive lung dysfunction There was mostly similar appreciated on the CT chest in 02/2022, possible asthma/pulmonary hypertension cannot be ruled out For the time being I would say continue with Breo Respiratory bio fire was negative O2 supplementation to keep O2 saturation between 88-92% Do not over oxygenate the patient -- Moderate to severe restrictive lung disease Likely from elevated right hemidiaphragm on top of morbid obesity Continue with incentive spirometry -- SHANI Sleep study done June 2021 CPAP of 12 was recommended at that time. Patient says that she has BiPAP at home but she had a titration study which showed CPAP of 12 cm H2O was needed Patient is noncompliant with CPAP. Importance of compliance explained the patient in depth Continue with CPAP/BiPAP -- Elevated right hemidiaphragm Likely iatrogenic, I think she got it at the same time when she had paresis of the vocal cord Plan: Would recommend to continue with CPAP nightly and as needed shortness of breath Patient was reluctant to use CPAP but the importance of using it explained and she is willing to use it Outpatient pulmonary follow-up Sniff test and 2D echo ordered Give prednisone 40 mg for 3 days followed by 20 mg for 2 days and then stop. Do not over oxygenate the patient, keep O2 saturation between 88-92% Please note the above document was generated using voice recognition software. It may contain grammatical, syntax or spelling errors.Any formal questions or concerns about the content, text or information contained within the body of this dictation should be directly addressed to the provider for clarification. History of Present Illness Attending Physician: Mitzi Meredith MD History of Present Illness 66-year-old female was admitted to hospital because of shortness of breath over a week Past medical history: SHANI/OHS on CPAP, elevated right hemidiaphragm, hypothyroidism, depression At the time of examination patient's daughter was also in the room Patient stated that she is feeling better compared to when she came to the hospital She is able to walk less than 150 - 200 feet before she has to stop to catch her breath when she does get short of breath is mostly huffing and puffing. Occasional wheezing. Denies any chest pain, no chest tightness, no diaphoresis, no palpitation at that time Patient was sick for approximately 5 days prior to presentation. She complains of chest congestion but inability to bring up the phlegm. 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 No birds or poultry nearby Allergies Allergy/AdvReac Type Severity Reaction Status Date / Time doxycycline Allergy Unknown GI UPSET Verified 05/08/22 12:45 duloxetine Allergy Unknown lip Verified 05/08/22 12:45 swelling enalapril AdvReac Mild Nausea Verified 05/08/22 12:45 oxycodone AdvReac Mild NAUSEA Verified 05/08/22 12:45 pilocarpine AdvReac Mild Nausea Verified 05/08/22 12:45 [From Salagen (pilocarpine)] Home Medications Medication Instructions Recorded Confirmed Type albuterol sulfate 90 mcg/actuation 2 puff inhalation Q6H PRN 04/19/21 05/08/22 Rx aerosol inhaler (ProAir HFA) shortness of breath or wheezing #8.5 grams Oxygen Home #2 ea 05/31/21 11/13/21 Rx multivitamin 1 tab PO DAILY 08/02/21 05/08/22 History ropinirole 1 mg tablet 0.5 mg PO HS #90 tabs 11/06/21 05/08/22 Rx bupropion HCl 100 mg tablet,12 hr 100 mg PO QAM #90 ea 02/19/22 05/08/22 Rx sustained-release (Wellbutrin SR) sertraline 100 mg tablet See Rx Instructions .Route 04/16/22 05/08/22 Rx .COMPLEX #90 tabs levothyroxine 137 mcg tablet 137 mcg PO QAM #30 tabs 04/26/22 05/08/22 Rx amitriptyline 50 mg tablet 25 mg PO HS #90 tabs 04/27/22 05/08/22 Rx Patient History Medical History Cardiac murmur dx as child Depression DVT (deep venous thrombosis) right leg > several yrs ago > due to control pills High blood pressure Hypothyroidism Kidney disease pt unaware Lumbar spondylosis Migraine hx of Morbid obesity with BMI of 50.0-59.9, adult Restless leg syndrome Sleep apnea no cpap Tremor Vocal cord dysfunction Surgical History H/O tubal ligation H/O: hysterectomy History of colonoscopy History of dilatation and curettage x3 History of throat surgery vocal cord surgery History of tonsillectomy History of tooth extraction Hx of cholecystectomy Hx of right knee surgery arthroscopic Family History Father No problems noted. 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 Beliefs That Will Affect Care: None marital status: / Current Living Situation: Other Current Living Situation Comment: roommate current occupational status: retired Other Information That Helps Us Care for You: No Feels Safe at Home: Yes Safety Concerns: Feels Safe At This Time Childhood Exposure to Second-Hand Smoke: Yes Dental Care, Regularly: No Physical Activity Frequency: Does not Exercise Seatbelt Use: always Sunscreen Use: No Assistive Devices: Oxygen - Continuous, Scooter/Electric Scooter and Walker Review of Systems Review of Systems: All systems reviewed & are unremarkable except as noted in HPI & below Physical Exam Physical Exam: Constitutional: No acute distress HEENT: EOMI, PERRLA Respiratory system: Decreased air entry bilaterally, no wheeze, no rhonchi, positive crackles bilateral lower lobes CVS: S1-S2 positive, no murmurs or gallops Abdomen: Soft, nontender, nondistended, positive bowel sounds x4, obese Extremities: +2 pulses bilaterally radialis/ dorsalis pedis, no cyanosis, no edema Neuro: Awake alert oriented x3 Psych: Normal mood and affect G/U: No Bell Skin: no rashes, warm and dry Lymphatic: no cervical or axillary lymphadenopathy Results & Data Results & Data ([facility]) Vital Signs (Past 12 Hours) Vital Signs Temp Pulse Pulse Resp BP BP Pulse Ox 05/11/22 11:42 36.3 C L 81 20 118/74 94 05/11/22 08:00 05/11/22 07:58 36.4 C L 82 20 105/64 97 05/11/22 07:36 78 05/11/22 07:09 90 18 97 05/11/22 03:00 36.5 C 84 20 130/71 96 O2 Del Method O2 Flow Rate 05/11/22 11:42 Nasal Cannula 3 05/11/22 08:00 Nasal Cannula 3 05/11/22 07:58 Nasal Cannula 3 05/11/22 07:36 05/11/22 07:09 Nasal Cannula 3 05/11/22 03:00 Nasal Cannula 3 Laboratory Results 05/11/22 06:56 05/11/22 06:56 PG Care Time/CCT Total # of Minutes Spent Total Time Spent with Patient: Total time spent is greater than 50% in coordination of care (as documented) at patient's floor/unit and/or counseling patient: Coding Level of Care Code 81748 Initial Inpt Care Lvl 3 Diagnoses Sleep apnea G47.30 Acute on chronic respiratory failure with hypoxia and hypercapnia J96.21; J96.22 Vocal cord dysfunction J38.3 Morbid obesity with BMI of 50.0-59.9, adult E66.01; Z68.43 Restrictive lung disease J98.4 Elevated hemidiaphragm J98.6
--- NOTE | 2022-05-11 14:23 | Hospitalist Progress Note ---
Date of Service May 11, 2022 Assessment & Plan (1) Acute and chronic respiratory failure: Plan: - Secondary to COPD Exacerbation and probably SHANI -Patient at 2l home oxygen baseline -Currently on 4 L -Attempt at weaning resulted in desaturation -SOB and wheeze are much better, but still get SOB on ambulation -Will consult Pulmonology -Will continue Duonebs scheduled and PRN, steroids, 40mg daily Prednisone, abx -Incentive spirometry -PT/OT (2) Obesity hypoventilation syndrome: Plan: - 2L NC at all times. BiPAP at night, however is noncompliant. - Weight loss strongly encouraged. (3) Sleep apnea: (4) Obesity, morbid, BMI 40.0-49.9: Plan: adviced on diet and exercise (5) Intertrigo: Plan: - In abdominal skin fold, will treat with topical ketoconazole BID for now, encourage nursing staff/patient to apply wicking material in skin folds to absorb excess moisture. (6) Vocal cord paresis: Plan: - Diagnosed in 2014, s/p silicone injections with Dr. Hauser. Still chronically hoarse voice. (7) Restless legs syndrome: Plan: - Continue ropinirole 0.5 mg p.o. at night. (8) Primary hypothyroidism: Plan: - Continue levothyroxine 137 mcg daily. (9) Lumbar spinal stenosis: Plan: - Exacerbated by obesity. mobility very limited. - Lidocaine patches prn. - Ambulation encouraged. (10) Depression: Plan: - Continue Zoloft, Wellbtrin. - Amitriptyline for migraine ppx. (11) CKD (chronic kidney disease): Plan: - Renal function stable, continue to follow. Plan Says she needs home humidifier and also nebulizer machine - SCDs, Lovenox for ppx. - Full Code. Admission and Anticipated Discharge Date Admission Date: May 08, 2022 Subjective patient seen and examined, says SOB and wheeze are better, but still has some cough, productive of scant sputum Review of Systems Review of Systems: All systems reviewed are negative, apart from the ones contained in the history. Physical Exam Physical Exam: The patient is awake, alert and oriented 3, morbidly obese HEENT--PERRL, EOMI, mucous membranes and oropharynx mildly dry Neck--supple. No JVD. No bruits. Thyroid normal, trachea midline, no adenopathy. Heart--normal S1 and S2. No murmurs, rubs or gallops. Lungs--Reduced air entry on auscvulation, some wheeze Abdomen--normal bowel sounds and soft. Mild epigastric and left sided abdominal pain Extremities--no cyanosis or clubbing. No edema. Dermatologic--normal skin turgor, normal color, no abnormal lymph nodes, no rash. Neurologic--cranial nerves II through XII grossly intact. Rheumatologic--normal range of motion. Psychiatric--normal affect. Results & Data Results & Data ([facility]) Vital Signs (Past 12 Hours) Vital Signs Temp Pulse Pulse Resp BP BP Pulse Ox 05/11/22 13:30 92 H 18 96 05/11/22 11:42 97.3 F L 81 20 118/74 94 05/11/22 08:00 05/11/22 07:58 97.5 F L 82 20 105/64 97 05/11/22 07:36 78 05/11/22 07:09 90 18 97 05/11/22 03:00 97.7 F 84 20 130/71 96 O2 Del Method O2 Flow Rate 05/11/22 13:30 Nasal Cannula 3 05/11/22 11:42 Nasal Cannula 3 05/11/22 08:00 Nasal Cannula 3 05/11/22 07:58 Nasal Cannula 3 05/11/22 07:36 05/11/22 07:09 Nasal Cannula 3 05/11/22 03:00 Nasal Cannula 3 PG Care Time/CCT Total # of Minutes Spent Total Time Spent with Patient: Total time spent is greater than 50% in coordination of care (as documented) at patient's floor/unit and/or counseling patient: Coding Level of Care Code 99914 Subseq Hosp Care Lvl 2 Diagnoses Acute and chronic respiratory failure J96.20 Obesity hypoventilation syndrome E66.2 Sleep apnea G47.30 Obesity, morbid, BMI 40.0-49.9 E66.01 Intertrigo L30.4 Vocal cord paresis J38.00 Restless legs syndrome G25.81 Primary hypothyroidism E03.9 Lumbar spinal stenosis M48.061 Depression F32.9 CKD (chronic kidney disease) N18.9 Time Spent (min) 35
[2022-05-11 14:32] LABS: Base Excess ABG 9.7 mEq/L (-9-1.8); HCO3 ABG 38 mmol/L (19-24); Oxygen Saturation ABG 98.5 % (90-95); PCO2 ABG 65 mmHg (35-46); PO2 ABG 88 mmHg (80-95); pH ABG 7.37 (7.35-7.45)
[2022-05-11 14:35] LABS: Allen Test Pos (Pos)
[2022-05-11] MEDS: AMITRIPTYLINE HCL 25 MG TAB PO SCH (20:30)
[2022-05-11] MEDS: rOPINIRole HCL 0.25 MG TABLET PO SCH (20:32)
[2022-05-12] MEDS: ALBUT/IPRATROP 3MG/0.5MG NEB 3 ML VIAL INH SCH ×3 (01:12→12:56)
[2022-05-12] MEDS: LEVOTHYROXINE SODIUM 137 MCG TABLET PO SCH (05:47)
--- NOTE | 2022-05-12 08:28 | Pulmonology Progress Note ---
Date of Service May 12, 2022 Assessment & Plan (1) Sleep apnea: (2) Acute on chronic respiratory failure with hypoxia and hypercapnia: (3) Vocal cord dysfunction: (4) Morbid obesity with BMI of 50.0-59.9, adult: (5) Restrictive lung disease: (6) Elevated hemidiaphragm: Plan CT chest 02/25/2022 personally reviewed: Elevated right hemidiaphragm with segmental atelectasis right lower lobe Mosaicism appreciated upper and lower lobes No mediastinal lymphadenopathy PFT 04/20/2021 personally reviewed: Moderate to severe restrictive lung disease, no obstruction, insignificant bronchodilator response FVC 1.22 L 39%, FEV1 0.96 L 39%, FEV1/FVC 78%, RV 87%, TLC 60%, RV/TLC 143% ABG 05/11/2022: 7.37/65/88 on 3 L nasal cannula --Acute on chronic hypercapnic hypoxic respiratory failure Patient does not seem to have an obstructive lung dysfunction There was mosaicism appreciated on the CT chest in 02/2022, possible asthma/pulmonary hypertension cannot be ruled out Hypercapnia is most likely from SHANI/OHS Hypoxia could be from VQ mismatch from dependent atelectasis given the elevated right hemidiaphragm and morbid obesity For the time being I would say continue with Breo Respiratory bio fire was negative O2 supplementation to keep O2 saturation between 88-92% Do not over oxygenate the patient -- Moderate to severe restrictive lung disease Likely from elevated right hemidiaphragm on top of morbid obesity Continue with incentive spirometry -- SHANI Sleep study done June 2021 CPAP of 12 was recommended at that time. Patient says that she has BiPAP at home but she had a titration study which showed CPAP of 12 cm H2O was needed Patient is noncompliant with CPAP. Importance of compliance explained the patient in depth Continue with CPAP/BiPAP -- Elevated right hemidiaphragm Likely iatrogenic, I think she got it at the same time when she had paresis of the vocal cord Consideration of plication of the right hemidiaphragm could be thought of in the future Plan: Patient is willing to use CPAP/BiPAP. Incentive spirometry will be beneficial Follow-up sniff test and 2D echo Taper of prednisone in the next 5 days It is very important to not over oxygenate the patient. Try to keep the saturation 88 to 92%. Case was discussed with RN at bedside Please note the above document was generated using voice recognition software. It may contain grammatical, syntax or spelling errors.Any formal questions or concerns about the content, text or information contained within the body of this dictation should be directly addressed to the provider for clarification. Admission and Anticipated Discharge Date Admission Date: May 08, 2022 Subjective Patient seen and examined at bedside. No acute distress, no adverse events overnight. Denies any headache, no nausea, no vomiting. Saturating 96% on 3 L. Denies any nausea or vomiting Fair appetite. Did not use BiPAP/CPAP at night. Review of Systems Review of Systems: All systems reviewed & are unremarkable except as noted in Subjective Physical Exam Physical Exam: Constitutional: No acute distress HEENT: EOMI, PERRLA Respiratory system: Decreased air entry bilaterally, no wheeze, no rhonchi, positive crackles bilateral lower lobes CVS: S1-S2 positive, no murmurs or gallops Abdomen: Soft, nontender, nondistended, positive bowel sounds x4, obese Extremities: +2 pulses bilaterally radialis/ dorsalis pedis, no cyanosis, no neftali ma Neuro: Awake alert oriented x3 Psych: Normal mood and affect G/U: No Bell Skin: no rashes, warm and dry Lymphatic: no cervical or axillary lymphadenopathy Results & Data Results & Data ([facility]) Vital Signs (Past 12 Hours) Vital Signs Temp Pulse Pulse Resp BP Pulse Ox O2 Del Method 05/12/22 07:37 79 05/12/22 06:58 80 18 97 Nasal Cannula 05/12/22 06:44 36.5 C 90 20 101/63 94 Nasal Cannula 05/12/22 04:34 36.4 C L 95 H 20 115/57 L 94 Nasal Cannula 05/12/22 01:13 82 16 95 Nasal Cannula 05/12/22 00:32 90 05/11/22 22:46 36.8 C 91 H 20 154/75 H 97 Nasal Cannula O2 Flow Rate 05/12/22 07:37 05/12/22 06:58 3 05/12/22 06:44 3 05/12/22 04:34 3 05/12/22 01:13 3 05/12/22 00:32 05/11/22 22:46 3 Laboratory Results 05/11/22 06:56 05/11/22 06:56 PG Care Time/CCT Total # of Minutes Spent Total Time Spent with Patient: Total time spent is greater than 50% in coordination of care (as documented) at patient's floor/unit and/or counseling patient: Coding Level of Care Code 33969 Subseq Hosp Care Lvl 2 Diagnoses Sleep apnea G47.30 Acute on chronic respiratory failure with hypoxia and hypercapnia J96.21; J 96.22 Vocal cord dysfunction J38.3 Morbid obesity with BMI of 50.0-59.9, adult E66.01; Z68.43 Restrictive lung disease J98.4 Elevated hemidiaphragm J98.6
[2022-05-12] MEDS: cefTRIAXone SODIUM 2,000 MG in DEXTROSE 5% 50 ML IV SCH (09:37)
[2022-05-12] MEDS: predniSONE 20 MG TAB PO SCH (09:40)
[2022-05-12] MEDS: FLUTICASONE/VILANTEROL 100/25MCG 14 PUFFS/INHALER INH SCH (09:40)
[2022-05-12] MEDS: buPROPion SR 100 MG TABCR PO SCH (09:40)
[2022-05-12] MEDS: SERTRALINE HCL 100 MG TABLET PO SCH (09:40)
[2022-05-12] MEDS: guaiFENesin 600 MG TABCR PO SCH (09:40)
[2022-05-12] MEDS: MULTIVITAMIN TAB PO SCH (09:40)
[2022-05-12] MEDS: KETOCONAZOLE 2% CR 15 GM TUBE EXT SCH (09:41)
[2022-05-12] MEDS: ENOXAPARIN INJ 40 MG/0.4 ML SYR SQ SCH (09:41)
--- NOTE | 2022-05-12 12:36 | XCELERA ---
[id number]
--- NOTE | 2022-05-12 13:43 | Discharge Summary ---
Date of Service May 12, 2022 Admission HPI Per Admitting Provider Karoline Samaniego is a 66-year-old female with past medical history significant for COPD and obesity hypoventilation syndrome, hypothyroidism, depression, low back pain, and RLS who is presenting today with shortness of breath. Beginning 5 days ago on 05/04, patient began coughing and feeling congested, although could not cough anything up. She has progressively felt more short of breath throughout the weekend, believes she had a fever at some point, and now is having difficulty sleeping due to her cough keeping her up at night and being painful, causing chest/rib pain. She does not have an appetite and has not been keeping up with fluids. She has not had any known sick contacts. She does wear 2 L chronically and is prescribed BiPAP at night, however cannot tolerate it. No tobacco use. On presentation to the ED, she was tachypneic, hypoxic at 88% on room air, mildly tachycardic, and mildly hypertensive. Now on 2 L NC, with SaO2 >92%. She is an elevated WBC of 18.5, neutrophil predominant. BMP largely unremarkable, renal function at baseline, without transaminitis. Troponin 11.3. Her protein and globulin are both mildly elevated. Bio fire respiratory panel negative throughout. Her CXR showed chronic elevation of the right hemidiaphragm with bibasilar atelectasis, without any pleural effusion, pneumothorax, or evidence of pneumonia seen. In the ED, she received 2 nebulizer treatments, IV steroids, and fluids and reports some improvement in symptoms. Principal Diagnosis Acute on chronic hypercapnic hypoxic respiratory failure Discharge Exam The patient is awake, alert and oriented 3, morbidly obese HEENT--PERRL, EOMI, mucous membranes and oropharynx mildly dry Neck--supple. No JVD. No bruits. Thyroid normal, trachea midline, no adenopathy. Heart--normal S1 and S2. No murmurs, rubs or gallops. Lungs--Reduced air entry on auscvulation, some wheeze Abdomen--normal bowel sounds and soft. Mild epigastric and left sided abdominal pain Extremities--no cyanosis or clubbing. No edema. Dermatologic--normal skin turgor, normal color, no abnormal lymph nodes, no rash. Neurologic--cranial nerves II through XII grossly intact. Rheumatologic--normal range of motion. Psychiatric--normal affect. Discharge Data Allergies Allergy/AdvReac Type Severity Reaction Status Date / Time doxycycline Allergy Unknown GI UPSET Verified 05/08/22 12:45 duloxetine Allergy Unknown lip Verified 05/08/22 12:45 swelling enalapril AdvReac Mild Nausea Verified 05/08/22 12:45 oxycodone AdvReac Mild NAUSEA Verified 05/08/22 12:45 pilocarpine AdvReac Mild Nausea Verified 05/08/22 12:45 [From [facility]agen (pilocarpine)] Consultations 05/08/22 10:15 ED Decision to Admit Stat 05/11/22 10:46 Consult Pulmonology Routine Ordered Studies 05/11/22 17:22 FL sniff test Routine Hospital Course (1) Acute and chronic respiratory failure: - Secondary to COPD Exacerbation and probably SHANI -Patient at 2l home oxygen baseline -Currently on 2 -SOB and wheeze are much better, but still get SOB on ambulation 2 d ECHO showed mild pulm HTN (50mmhg) -appreciate pulm -Will continue Duonebs scheduled and PRN, steroids taper -Incentive spirometry -PT/OT (2) Obesity hypoventilation syndrome: - 2L NC at all times. BiPAP at night, however is noncompliant. - Weight loss strongly encouraged. (3) Sleep apnea: (4) Obesity, morbid, BMI 40.0-49.9: adviced on diet and exercise (5) Intertrigo: - In abdominal skin fold, will treat with topical ketoconazole BID for now, encourage nursing staff/patient to apply wicking material in skin folds to absorb excess moisture. (6) Vocal cord paresis: - Diagnosed in 2014, s/p silicone injections with Dr. Hauser. Still chronically hoarse voice. (7) Restless legs syndrome: - Continue ropinirole 0.5 mg p.o. at night. (8) Primary hypothyroidism: - Continue levothyroxine 137 mcg daily. (9) Lumbar spinal stenosis: - Exacerbated by obesity. mobility very limited. - Lidocaine patches prn. - Ambulation encouraged. (10) Depression: - Continue Zoloft, Wellbtrin. - Amitriptyline for migraine ppx. (11) CKD (chronic kidney disease): - Renal function stable, continue to follow. Plan d/c home - SCDs, Lovenox for ppx. - Full Code. Total Time Total Time Spent Total Time Spent (In Minutes): 35 Discharge Plan Discharge Items Patient Disposition: Home - Self-Care Reason For Visit: COPD EXACERBATION Discharge Diagnosis: Acute on chronic hypercapnic hypoxic respiratory failure Condition on Discharge: Fair Activity: Resume your previous activity Non-emergency contact: Primary Care Provider Call non-emergency contact if: you have any medication questions Follow-up/Referrals: Salome Snyder MD [Primary Care Provider] - Diet: Regular Addtl Attending Provider Instructions: please make sure you wear your CPAP at night make appointment to follow up with your PCP Pending Studies at Discharge: No Stand-Alone Forms: My [place] Free Classifieds, Smoking Cessation Medications and DC Order Prescriptions: New prednisone 10 mg Tablet 30 mg PO DAILY 2 Days Qty: 6 0RF prednisone 20 mg Tablet 20 mg PO DAILY 2 Days Qty: 2 0RF prednisone 10 mg tablet 10 mg PO DAILY 1 Days Qty: 1 0RF Continued albuterol sulfate [ProAir HFA] 90 mcg/actuation HFA aerosol inhaler 2 puff INH Q6H PRN (Reason: shortness of breath or wheezing) Qty: 8.5 1RF ropinirole 1 mg tablet 0.5 mg PO HS Qty: 90 1RF bupropion HCl [Wellbutrin SR] 100 mg tablet sustained-release 12 hr 100 mg PO QAM Qty: 90 1RF sertraline 100 mg tablet See Rx Instructions .ROUTE .COMPLEX Qty: 90 3RF Dose Instruction: TAKE 1 TABLET BY MOUTH DAILY Rx Instructions: TAKE 1 TABLET BY MOUTH DAILY levothyroxine 137 mcg tablet 137 mcg PO QAM Qty: 30 5RF amitriptyline 50 mg tablet 25 mg PO HS Qty: 90 1RF (DME) Oxygen Home Liters Per Minute See Rx Instructions .Route Qty: 2 0RF Rx Instructions: 2 l /NC /24/7 multivitamin Tablet 1 tab PO DAILY Discharge Orders: Discharge Order (Routine); Ordered 05/12/22 Ordered By: Mitzi Meredith Admission Data Admit Date/Time: 05/08/22 10:45 Attending Provider: Mitzi Meredith Admit Provider: Rajan Echavarria Primary Care Provider: Salome Snyder V. Other Providers: Rajan Echavarria [place] Coding Level of Care Code D/C DAY MANAGEMENT >30 MINS Diagnoses Acute and chronic respiratory failure J96.20 Obesity hypoventilation syndrome E66.2 Sleep apnea G47.30 Obesity, morbid, BMI 40.0-49.9 E66.01 Intertrigo L30.4 Vocal cord paresis J38.00 Restless legs syndrome G25.81 Primary hypothyroidism E03.9 Lumbar spinal stenosis M48.061 Depression F32.9 CKD (chronic kidney disease) N18.9 Time Spent (min) 35
[2022-05-13] MEDS ORDERED: predniSONE 10 MG TABLET PO SCH (09:00)
[2022-05-15] MEDS ORDERED: predniSONE 20 MG TAB PO SCH (09:00)
[2022-05-17] MEDS ORDERED: predniSONE 10 MG TABLET PO ONE (08:00)
== END 2022-05-12 14:46 | disposition home or self-care (01) | DRG 189 ==
LOC: ED 08:13 → EDINP 10:45 → SUATTDRO 10:45 → 2N 12:50

== ENCOUNTER 2023-01-01 17:33 | Inpatient (IN) ==
--- NOTE | 2023-01-01 17:45 | ED Triage Note ---
Date of Service January 01, 2023 History of Present Illness This patient was briefly evaluated while in triage. An abbreviated physical exam was performed. This patient is a 67-year-old Female who presents to the ED for evaluation of sore throat, right ear pain, fevers, and cough for 5 days. Coughing up green mucus now. Denies coughing up blood. No chest pain. Has been having increased shortness of breath, notes she is on 2 L oxygen at home, has COPD and pulmonary hypertension. No known sick contacts. Physical Exam CONSTITUTIONAL: No acute distress. Well appearing. RESPIRATORY: Diminished in both bases, otherwise clear to auscultation bilater ally. Nonlabored breathing. Equal expansion bilaterally. CARDIOVASCULAR: Regular rate and rhythm with no murmurs, rubs or gallops. Normal peripheral perfusion. No peripheral edema. GASTROINTESTINAL: Soft, nontender. MUSCULOSKELETAL: No tenderness or swelling in calves. NEUROLOGIC: Alert and oriented X 4 with normal affect. Initial orders for labs and / or imaging were placed and patient was placed in the waiting area until a bed is available. Please see further documentation for the full ED course.
[2023-01-01] MEDS ORDERED: ALBUT/IPRATROP 3MG/0.5MG NEB 3 ML VIAL NEB STA (18:28)
--- NOTE | 2023-01-01 18:31 | Emergency Department Note ---
Impression & Plan Hypoventilation syndrome, Hypoxia, Bronchitis ED Provider Note NAME: KALYAN LANGSTON AGE: 67 SEX: F : 1955 ARRIVES VIA: Walk-In INFORMANT: Patient, ED PROVIDER(S): Hardy Madrigal DO CHIEF COMPLAINT: Shortness of breath HPI: The patient is a 67-year-old female who presented to the emergency department for an evaluation of productive cough and shortness of breath. The patient had bad pneumonia recently. She is currently being worked up for restrictive lung disease. She does have a primary pulmonary doctor. The patient states that she has been having worsening shortness of breath especially over the last week or 2. She started having a productive cough. She does wear oxygen at home but she is recently had to increase her oxygen intake. She states her symptoms worsen with exertion. She also has a fever at home. She denies having any hemoptysis or chest pain. She denies having any lower extremity swelling or pain. ROS: See above HPI for pertinent positives & negatives. A total of 10 systems reviewed and were otherwise negative. PAST MEDICAL HISTORY: See Below PAST SURGICAL HISTORY: See Below FAMILY HISTORY: See Below SOCIAL HISTORY: See Below HOME MEDICATIONS: See Below ALLERGIES: See Below VITALS: See Below PHYSICAL EXAMINATION: GENERAL: Patient is awake alert in no acute distress patient is resting comfortably and showing no signs of anxiety EYES: The conjunctivae are clear. The pupils are round and reactive. EARS, NOSE, MOUTH AND THROAT: The nose is without any evidence of any deformity. NECK: The neck is nontender and supple. RESPIRATORY: Diminished breath sounds are noted throughout. There were faint Rales in the left upper lung field. There is mild conversational dyspnea. CARDIOVASCULAR: Tachycardic rate with regular rhythm was noted. There is no definite murmur. GASTROINTESTINAL: The abdomen is soft. Abdomen is nontender. MUSCULOSKELETAL/EXTREMITIES: There is no evidence of gross deformity full range of motion is noted in the hips and shoulders. SKIN: There is no obvious evidence of any rash. There are no petechiae, pallor or cyanosis noted. NEUROLOGIC: Patient is awake alert and oriented x3 MEDICAL DECISION MAKING: The patient is a 67-year-old female who presented to the emergency department with family for an evaluation of difficulty breathing. The patient has a productive cough. She also reported a low-grade fever at home. She does have a history of hypoventilation syndrome. The patient did have abnormal lung sounds on physical exam. She was treated with bronchodilator therapy. She was also treated with IV fluids and IV antibiotics. She was reevaluated multiple times. She was feeling somewhat improved on reevaluation. Given her elevated white blood cell count as well as her abnormal inflammatory markers I will discuss her case with the on-call [facility] hospitalist. Triage Nursing notes reviewed. Prior medical records reviewed Vital Signs: reviewed and remarkable for hypoxia and tachycardia. Differential diagnosis: Reactive airway disease, pneumonia, pneumothorax, COPD, CHF, infections, cardiac ischemia, pulmonary embolism, musculoskeletal, gastrointestinal, as well as other pathologies. ER treatment provided: See below Diagnostics interpreted by me: ECG: EKG was obtained in the emergency department. My interpretation is sinus tachycardia at 107 bpm. There is no ectopy. Lateral ST depressions were noted. Early transition was noted. This was compared to a tracing from May 08, 2022. No changes were noted. Cardiac Monitoring: An order was placed for continuous cardiac monitoring. The monitor shows a rate of 180 bpm with sinus tachycardia. Laboratory studies: As stated above and show below. Imaging studies: See below. Radiographic imaging was reviewed by myself Consultation(s): I discussed this case with Dr. Berman [facility] Past Med/Surg History Medical History Acute and chronic respiratory failure Acute bronchitis Acute on chronic respiratory failure with hypoxia and hypercapnia Cardiac murmur dx as child COPD exacerbation Depression DVT (deep venous thrombosis) right leg > several yrs ago > due to control pills Dyspnea on exertion Elevated white blood cell count Fall High blood pressure History of Lyme disease Hx of fall Hypothyroidism Intertrigo Leukocytosis Lumbar spondylosis Migraine hx of Morbid obesity with BMI of 50.0-59.9, adult Obesity hypoventilation syndrome Obesity hypoventilation syndrome Pain in right leg Physical deconditioning Respiratory distress Restless leg syndrome Right ankle injury Right foot injury Right leg swelling Right leg swelling Secondary pulmonary hypertension Sleep apnea no cpap SOB (shortness of breath) on exertion Tremor Tremor Vocal cord dysfunction Vocal cord dysfunction Wheezing Surgical History H/O tubal ligation H/O: hysterectomy History of colonoscopy History of dilatation and curettage x3 History of throat surgery vocal cord surgery History of tonsillectomy History of tooth extraction Hx of cholecystectomy Hx of right knee surgery arthroscopic Family History Father No problems noted. Mother Hypertension Hypothyroidism Denies family history of Ovarian cancer Breast cancer Colorectal cancer Uterine cancer Social History Smoking Status: Never smoker Second Hand Exposure: No; Do You Dip or Chew Tobacco: No; Hx Alcohol Use: No Hx Substance Use: No Preferred Language: Greenlandic Communication Ability: Effective Visual Impairment: No Limitations Hearing Ability: Normal Business Consult Required: No Beliefs That Will Affect Care: None marital status: / Current Living Situation: Other Current Living Situation Comment: roommate current occupational status: retired Feels Safe at Home: Yes Childhood Exposure to Second-Hand Smoke: Yes Dental Care, Regularly: No Physical Activity Frequency: Does not Exercise Seatbelt Use: sometimes Sunscreen Use: No Assistive Devices: Oxygen - Continuous, Scooter/Electric Scooter and Walker Allergies Allergies Allergy/AdvReac Type Severity Reaction Status Date / Time doxycycline Allergy Unknown GI UPSET Verified 12/12/22 15:07 duloxetine Allergy Unknown lip Verified 12/12/22 15:07 swelling enalapril AdvReac Mild Nausea Verified 12/12/22 15:07 oxycodone AdvReac Mild NAUSEA Verified 12/12/22 15:07 pilocarpine AdvReac Mild Nausea Verified 12/12/22 15:07 [From [place] (pilocarpine)] Home Meds Home Medications Medication Instructions Recorded Confirmed ketoconazole 2 % topical cream 1 applic topical BID PRN 08/15/22 12/12/22 Previous Rx's Medication Instructions Recorded albuterol sulfate 90 mcg/actuation 2 puff inhalation Q6H PRN 04/19/21 aerosol inhaler (ProAir HFA) shortness of breath or wheezing #8.5 grams amitriptyline 50 mg tablet 50 mg PO HS #90 tabs 05/21/22 Oxygen Home #2 ea 06/14/22 mupirocin 2 % topical ointment 1 applic topical TID PRN 08/15/22 folliculitis #22 grams levothyroxine 137 mcg tablet 137 mcg PO QAM #30 tabs 10/31/22 bupropion HCl 150 mg 24 hr tablet, 150 mg PO QAM #90 tabs 12/12/22 extended release (Wellbutrin XL) mecobalamin (vitamin B12) 2,500 2,500 mcg PO DAILY #90 tabs 12/12/22 mcg chewable tablet ropinirole 0.5 mg tablet 0.5 mg PO HS #90 tabs 12/14/22 Results & Data (ED) Vital Signs Vital Signs - 24 hr 01/01/23 17:41 01/01/23 17:45 01/01/23 19:00 Temperature 36.4 C L Temperature Source Temporal Artery Scan Pulse Rate 114 H 108 H Respiratory Rate 18 Respiratory Effort / Characteristics Non-Labored Spontaneous Respiratory Depth Normal Blood Pressure 128/80 Blood Pressure Mean 96 Pulse Oximetry 87 L 93 Oxygen Delivery Method Room Air Nasal Cannula Oxygen Flow Rate 3 Sepsis Recent Fever Within 48 Hours No Sepsis New/Unexplained Change in Mental Status No Sepsis Action Taken by Nursing No Action Required 01/01/23 18:45 Temperature Temperature Source Pulse Rate Respiratory Rate Respiratory Effort / Characteristics Respiratory Depth Blood Pressure Blood Pressure Mean Pulse Oximetry 94 Oxygen Delivery Method Room Air Oxygen Flow Rate Sepsis Recent Fever Within 48 Hours Sepsis New/Unexplained Change in Mental Status Sepsis Action Taken by Retirement Medications Current Medication List: was personally reviewed by me Laboratory Data Attestation: I reviewed the patient's lab results. 01/01/23 19:08 01/01/23 19:24 Lab Results 01/01/23 01/01/23 01/01/23 Range/Units 19:08 19:08 19:08 WBC 16.72 H (4.8-10.8) K/ul RBC 5.51 H (4.20-5.40) M/uL Hgb 16.5 H (12.0-16.0) g/dl Hct 50.7 H (37.0-47.0) % MCV 92.0 (80.0-100.0) fL MCH 29.9 (25.0-34.0) pg MCHC 32.5 (32.0-36.0) g/dL RDW Std Deviation 47.0 H (36.4-46.3) fL RDW Coeff of Ly 13.7 (11.5-14.5) % Plt Count 360 (130-400) K/uL MPV 9.8 (9.4-12.4) fL Immature Gran % (Auto) 1.0 % Neut % (Auto) 72.1 % Lymph % (Auto) 17.8 % Montgomery % (Auto) 7.6 % Eos % (Auto) 1.0 % Baso % (Auto) 0.5 % Neut # (Auto) 12.08 H (1.40-6.50) K/uL Lymph # (Auto) 2.97 (1.2-3.4) K/uL Montgomery # (Auto) 1.27 H (0.11-0.59) K/uL Eos # (Auto) 0.16 (0-0.50) K/uL Baso # (Auto) 0.08 (0-0.2) K/uL Immature Gran # (Auto) 0.16 (0.01-0.20) K/uL Absolute Nucleated RBC 0.02 (0-0.12) K/uL Nucleated RBC % (auto) 0.1 % PT (9.0-12.0) Seconds INR (0.9-1.1) APTT (21.0-31.0) Seconds PTT Ratio Sodium TNP Potassium TNP Chloride 93 L (98-107) mmol/L Carbon Dioxide 33 H (21-32) mmol/L Anion Gap TNP BUN 8 (6-23) mg/dl Creatinine 0.85 (0.6-1.2) mg/dl Est Cr Clr Drug Dosing Not Reportable Est GFR ( Amer) 83.3 ml/min Est GFR (Non-Af Amer) 71.9 ml/min BUN/Creatinine Ratio 9.4 L (10-20) Glucose 107 H (70-99(Fasting)) mg/dl Lactate 1.6 (0.4-2.0) mmol/L Calcium 9.5 (8.6-10.3) mg/dl Total Bilirubin 0.7 (0.2-1.0) mg/dl AST TNP ALT 13 (7-52) U/L Alkaline Phosphatase 106 H (34-104) U/L Troponin I High Sens 15.0 H (0-14) pg/ml C-Reactive Protein 16.53 H (0-0.5) mg/dl Total Protein 9.1 H (6.0-8.3) gm/dl Albumin 4.2 (3.4-5.0) gm/dl Globulin 4.9 H (2.5-4.0) gm/dl Albumin/Globulin Ratio 0.9 (0.9-2) Procalcitonin (0-0.5) ng/ml Adenovirus (PCR) (NotDetected) B. pertussis DNA (PCR) (NotDetected) B.parapertussis DNA PCR (NotDetected) C. pneumoniae DNA (PCR) (NotDetected) Coronavirus OC43 (PCR) (NotDetected) Coronavirus HKU1 (PCR) (NotDetected) Coronavirus 229E (PCR) (NotDetected) SARS-CoV-2 (PCR) (NotDetected) Coronavirus NL63 (PCR) (NotDetected) Human Metapneumovir PCR (NotDetected) Influenza Type A (PCR) (NotDetected) Influenza Type B (PCR) (NotDetected) M. pneumoniae (PCR) (NotDetected) Parainfluenza 1 (PCR) (NotDetected) Parainfluenza 2 (PCR) (NotDetected) Parainfluenza 3 (PCR) (NotDetected) Parainfluenza 4 (PCR) (NotDetected) RSV (PCR) (NotDetected) Entero/Rhino (PCR) (NotDetected) 01/01/23 01/01/23 01/01/23 Range/Units 19:12 19:21 19:21 WBC (4.8-10.8) K/ul RBC (4.20-5.40) M/uL Hgb (12.0-16.0) g/dl Hct (37.0-47.0) % MCV (80.0-100.0) fL MCH (25.0-34.0) pg MCHC (32.0-36.0) g/dL RDW Std Deviation (36.4-46.3) fL RDW Coeff of Ly (11.5-14.5) % Plt Count (130-400) K/uL MPV (9.4-12.4) fL Immature Gran % (Auto) % Neut % (Auto) % Lymph % (Auto) % Montgomery % (Auto) % Eos % (Auto) % Baso % (Auto) % Neut # (Auto) (1.40-6.50) K/uL Lymph # (Auto) (1.2-3.4) K/uL Montgomery # (Auto) (0.11-0.59) K/uL Eos # (Auto) (0-0.50) K/uL Baso # (Auto) (0-0.2) K/uL Immature Gran # (Auto) (0.01-0.20) K/uL Absolute Nucleated RBC (0-0.12) K/uL Nucleated RBC % (auto) % PT 11.7 (9.0-12.0) Seconds INR 1.1 (0.9-1.1) APTT 29.0 (21.0-31.0) Seconds PTT Ratio 1.0 Sodium Potassium Chloride (98-107) mmol/L Carbon Dioxide (21-32) mmol/L Anion Gap BUN (6-23) mg/dl Creatinine (0.6-1.2) mg/dl Est Cr Clr Drug Dosing Est GFR ( Amer) ml/min Est GFR (Non-Af Amer) ml/min BUN/Creatinine Ratio (10-20) Glucose (70-99(Fasting)) mg/dl Lactate (0.4-2.0) mmol/L Calcium (8.6-10.3) mg/dl Total Bilirubin (0.2-1.0) mg/dl AST ALT (7-52) U/L Alkaline Phosphatase (34-104) U/L Troponin I High Sens (0-14) pg/ml C-Reactive Protein (0-0.5) mg/dl Total Protein (6.0-8.3) gm/dl Albumin (3.4-5.0) gm/dl Globulin (2.5-4.0) gm/dl Albumin/Globulin Ratio (0.9-2) Procalcitonin 0.11 (0-0.5) ng/ml Adenovirus (PCR) Not Detected (NotDetected) B. pertussis DNA (PCR) Not Detected (NotDetected) B.parapertussis DNA PCR Not Detected (NotDetected) C. pneumoniae DNA (PCR) Not Detected (NotDetected) Coronavirus OC43 (PCR) Not Detected (NotDetected) Coronavirus HKU1 (PCR) Not Detected (NotDetected) Coronavirus 229E (PCR) Not Detected (NotDetected) SARS-CoV-2 (PCR) Not Detected (NotDetected) Coronavirus NL63 (PCR) Not Detected (NotDetected) Human Metapneumovir PCR Not Detected (NotDetected) Influenza Type A (PCR) Not Detected (NotDetected) Influenza Type B (PCR) Not Detected (NotDetected) M. pneumoniae (PCR) Not Detected (NotDetected) Parainfluenza 1 (PCR) Not Detected (NotDetected) Parainfluenza 2 (PCR) Not Detected (NotDetected) Parainfluenza 3 (PCR) Not Detected (NotDetected) Parainfluenza 4 (PCR) Not Detected (NotDetected) RSV (PCR) Not Detected (NotDetected) Entero/Rhino (PCR) Not Detected (NotDetected) 01/01/23 Range/Units 19:24 WBC (4.8-10.8) K/ul RBC (4.20-5.40) M/uL Hgb (12.0-16.0) g/dl Hct (37.0-47.0) % MCV (80.0-100.0) fL MCH (25.0-34.0) pg MCHC (32.0-36.0) g/dL RDW Std Deviation (36.4-46.3) fL RDW Coeff of Ly (11.5-14.5) % Plt Count (130-400) K/uL MPV (9.4-12.4) fL Immature Gran % (Auto) % Neut % (Auto) % Lymph % (Auto) % Montgomery % (Auto) % Eos % (Auto) % Baso % (Auto) % Neut # (Auto) (1.40-6.50) K/uL Lymph # (Auto) (1.2-3.4) K/uL Montgomery # (Auto) (0.11-0.59) K/uL Eos # (Auto) (0-0.50) K/uL Baso # (Auto) (0-0.2) K/uL Immature Gran # (Auto) (0.01-0.20) K/uL Absolute Nucleated RBC (0-0.12) K/uL Nucleated RBC % (auto) % PT (9.0-12.0) Seconds INR (0.9-1.1) APTT (21.0-31.0) Seconds PTT Ratio Sodium 134 L Potassium 3.7 Chloride (98-107) mmol/L Carbon Dioxide (21-32) mmol/L Anion Gap BUN (6-23) mg/dl Creatinine (0.6-1.2) mg/dl Est Cr Clr Drug Dosing Est GFR ( Amer) ml/min Est GFR (Non-Af Amer) ml/min BUN/Creatinine Ratio (10-20) Glucose (70-99(Fasting)) mg/dl Lactate (0.4-2.0) mmol/L Calcium (8.6-10.3) mg/dl Total Bilirubin (0.2-1.0) mg/dl AST 15 ALT (7-52) U/L Alkaline Phosphatase (34-104) U/L Troponin I High Sens (0-14) pg/ml C-Reactive Protein (0-0.5) mg/dl Total Protein (6.0-8.3) gm/dl Albumin (3.4-5.0) gm/dl Globulin (2.5-4.0) gm/dl Albumin/Globulin Ratio (0.9-2) Procalcitonin (0-0.5) ng/ml Adenovirus (PCR) (NotDetected) B. pertussis DNA (PCR) (NotDetected) B.parapertussis DNA PCR (NotDetected) C. pneumoniae DNA (PCR) (NotDetected) Coronavirus OC43 (PCR) (NotDetected) Coronavirus HKU1 (PCR) (NotDetected) Coronavirus 229E (PCR) (NotDetected) SARS-CoV-2 (PCR) (NotDetected) Coronavirus NL63 (PCR) (NotDetected) Human Metapneumovir PCR (NotDetected) Influenza Type A (PCR) (NotDetected) Influenza Type B (PCR) (NotDetected) M. pneumoniae (PCR) (NotDetected) Parainfluenza 1 (PCR) (NotDetected) Parainfluenza 2 (PCR) (NotDetected) Parainfluenza 3 (PCR) (NotDetected) Parainfluenza 4 (PCR) (NotDetected) RSV (PCR) (NotDetected) Entero/Rhino (PCR) (NotDetected) Administered Medications Discontinued Medications Albuterol (Albut/Ipratrop 3mg/0.5mg Neb 3 Ml Vial) 3 ml NEB NOW STA; Protocol Stop: 01/01/23 18:29 Last Admin: 01/01/23 19:54 Dose: 3 ml Documented By: Imaging Data Attestation: I personally reviewed and interpreted this imaging study as follows: My Impression: 1 view chest x-ray was obtained in the emergency department. My interpretation is no definite filtrate, final report below. Radiologist's Impression: Chest X-Ray 01/01/23 17:46 XR chest 1V portable HISTORY: 67 years-old Female cough, SOB acute cough with shortness of breath COMPARISON: 05/08/2022, 02/25/2022 TECHNIQUE: AP view of the chest FINDINGS: Cardiac silhouette is enlarged. Chronic right diaphragmatic elevation with right basilar atelectasis. Gaseous distention of the stomach. No pneumothorax, pleural effusion, airspace consolidation or pulmonary edema. The bones of the chest appear grossly intact. IMPRESSION: No acute process. ACT 112: Negative or not required by law. The above report was generated using voice recognition software. It may contain grammatical, syntax or spelling errors. Electronically signed by: Claudio Choudhary M.D. 01/01/2023 6:39 PM Discharge Plan Visit Data Chief Complaint: Flu Like Symptoms Stated Complaint: SICK,EAR ACHE,SORE THROAT,COUGH,FEVER ED Provider: Hardy Madrigal Discharge Problem: Hypoventilation syndrome, Hypoxia, Bronchitis Patient Disposition: Being Evaluated by Hospitalist Forms Stand Alone Forms: My [facility] [employer] Prescriptions Prescriptions: No Action albuterol sulfate [ProAir HFA] 90 mcg/actuation HFA aerosol inhaler 2 puff INH Q6H PRN (Reason: shortness of breath or wheezing) Qty: 8.5 1RF levothyroxine 137 mcg tablet 137 mcg PO QAM Qty: 30 5RF ropinirole 0.5 mg tablet 0.5 mg PO HS Qty: 90 1RF (DME) Oxygen Home Liters Per Minute See Rx Instructions .Route Qty: 2 0RF Rx Instructions: 2 l /NC /24/7 ketoconazole 2 % cream 1 applic topical BID PRN mupirocin 2 % ointment 1 applic topical TID PRN (Reason: folliculitis) Qty: 22 0RF amitriptyline 50 mg tablet 50 mg PO HS Qty: 90 1RF mecobalamin (vitamin B12) 2,500 mcg tablet,chewable 2,500 mcg PO DAILY Qty: 90 0RF bupropion HCl [Wellbutrin XL] 150 mg tablet extended release 24 hr 150 mg PO QAM Qty: 90 3RF Referrals Referrals: Salome Snyder MD [Primary Care Provider] -
--- NOTE | 2023-01-01 18:41 | XRay Report ---
XR chest 1V portable HISTORY: 67 years-old Female cough, SOB acute cough with shortness of breath COMPARISON: 05/08/2022, 02/25/2022 TECHNIQUE: AP view of the chest FINDINGS: Cardiac silhouette is enlarged. Chronic right diaphragmatic elevation with right basilar atelectasis. Gaseous distention of the stomach. No pneumothorax, pleural effusion, airspace consolidation or pulm onary edema. The bones of the chest appear grossly intact. IMPRESSION: No acute process. ACT 112: Negative or not required by law. The above report was generated using voice recognition software. It may contain grammatical, syntax o r spelling errors. Electronically signed by: Claudio Choudhary M.D. 01/01/2023 6:39 PM
[2023-01-01 19:51] LABS: Basophils # (auto) 0.08 K/uL (0-0.2); Basophils % (auto) 0.5 %; Eosinophils # (auto) 0.16 K/uL (0-0.50); Hematocrit (blood only) 50.7 % (37.0-47.0); Hemoglobin 16.5 g/dl (12.0-16.0); Immature Granulocytes # (auto) 0.16 K/uL (0.01-0.20); Lymphocytes # (auto) 2.97 K/uL (1.2-3.4); Lymphocytes % (auto) 17.8 %; Mean Corpuscular Hemoglobin 29.9 pg (25.0-34.0); Mean Corpuscular Hgb Conc 32.5 g/dL (32.0-36.0); Mean Platelet Volume 9.8 fL (9.4-12.4); Monocytes # (auto) 1.27 K/uL (0.11-0.59); Monocytes % (auto) 7.6 %; Neutrophils # (auto) 12.08 K/uL (1.40-6.50); Neutrophils % (auto) 72.1 %; Nucleated RBC # (auto) 0.02 K/uL (0-0.12); Nucleated RBC % (auto) 0.1 %; Platelet Count 360 K/uL (130-400); RDW Coefficient of Variation 13.7 % (11.5-14.5); Red Blood Count 5.51 M/uL (4.20-5.40); White Blood Count 16.72 K/ul (4.8-10.8)
[2023-01-01 20:24] LABS: INR 1.1 (0.9-1.1); Prothrombin Time 11.7 Seconds (9.0-12.0)
[2023-01-01 20:35] LABS: Alanine Aminotransferase 13 U/L (7-52); Albumin Globulin Ratio 0.9 (0.9-2); Albumin Level 4.2 gm/dl (3.4-5.0); Alkaline Phosphatase 106 U/L (34-104); BUN Creatinine Ratio 9.4 (10-20); Bilirubin,Total 0.7 mg/dl (0.2-1.0); Blood Urea Nitrogen 8 mg/dl (6-23); C Reactive Protein 16.53 mg/dl (0-0.5); Calcium 9.5 mg/dl (8.6-10.3); Carbon Dioxide 33 mmol/L (21-32); Chloride 93 mmol/L (98-107); Est GFR (African American) 83.3 ml/min; Est GFR (Non-African American) 71.9 ml/min; Globulin 4.9 gm/dl (2.5-4.0); Glucose 107 mg/dl (70-99(Fasting)); Total Protein 9.1 gm/dl (6.0-8.3)
[2023-01-01 20:38] LABS: Adenovirus PCR Not Detected (NotDetected); Bordetella parapertussis PCR Not Detected (NotDetected); Bordetella pertussis PCR Not Detected (NotDetected); Chlamydia pneumoniae PCR Not Detected (NotDetected); Coronavirus 229E PCR Not Detected (NotDetected); Coronavirus CoV-2 (COVID19)PCR Not Detected (NotDetected); Coronavirus HKU1 PCR Not Detected (NotDetected); Coronavirus NL63 PCR Not Detected (NotDetected); Coronavirus OC43PCR Not Detected (NotDetected); Human Metapneumovirus PCR Not Detected (NotDetected); Influenza A PCR Not Detected (NotDetected); Influenza B PCR Not Detected (NotDetected); Mycoplasma pneumoniae PCR Not Detected (NotDetected); Parainfluenza Virus 1 PCR Not Detected (NotDetected); Parainfluenza Virus 2 PCR Not Detected (NotDetected); Parainfluenza Virus 3 PCR Not Detected (NotDetected); Parainfluenza Virus 4 PCR Not Detected (NotDetected); Respiratory Syncytial VirusPCR Not Detected (NotDetected); Rhinovirus/Enterovirus PCR Not Detected (NotDetected)
[2023-01-01 20:49] LABS: Potassium 3.7 mmol/L (3.5-5.1)
[2023-01-01] MEDS ORDERED: cefTRIAXone SODIUM 2,000 MG/70 ML BAG IV STA (20:57)
--- NOTE | 2023-01-01 21:34 | History & Physical Report ---
Date of Service January 01, 2023 Assessment & Plan (1) Sleep apnea: (2) Obesity hypoventilation syndrome: (3) Acute on chronic respiratory failure with hypoxia and hypercapnia: (4) Vocal cord dysfunction: (5) Secondary pulmonary hypertension: (6) CKD (chronic kidney disease): (7) Obesity, morbid, BMI 40.0-49.9: (8) Hypercholesterolemia: (9) Essential hypertension: (10) Depression: (11) Primary hypothyroidism: (12) Bronchitis: (13) COPD exacerbation: Plan Acute on chronic respiratory failure with hypoxia/COPD exacerbation with bronchitis/obesity hypoventilation syndrome- Admit to monitored bed Start methylprednisolone 40 mg IV every 8 hours Guaifenesin extended release 1200 mg p.o. twice daily Duonebs every 4 hours while awake and every 2 hours when necessary. Azithromycin 500 mg IV daily Nasal cannula oxygen, titrate to keep pulse ox around 94% Elevated troponin- The patient will be admitted to telemetry for serial cardiac enzymes, serial EKG's, cardiac rhythm monitoring and a 2-D echocardiogram with Dopplers. Troponin 15 on admission Patient has mild sinus tachycardia 107 on EKG Follow troponin serially, suspect supply demand mismatch type II Depression- Continue amitriptyline, bupropion Hypothyroidism- Continue levothyroxine 137 mcg daily RLS- Continue ropinirole 0.5 mg at bedtime Vitamin B12 deficiency- Continue B12 supplement 2500 mcg daily History of Present Illness Chief Complaint: The patient presents to the emergency department with complaint of shortness of breath, dyspnea on exertion and productive cough for the past several days Primary Care Provider: Salome Snyder MD The patient is a 67-year-old female with a past medical history including obesity hypoventilation syndrome, vocal cord dysfunction, secondary pulmonary hypertension, chronically elevated right hemidiaphragm, CKD, RLS, hypothyroidism, morbid obesity, hypertension, SHANI and depression. She presents to the emergency department with several days of productive cough, shortness of breath and dyspnea on exertion worse than her baseline for which she follows with pulmonology Allergies Allergy/AdvReac Type Severity Reaction Status Date / Time doxycycline Allergy Unknown GI UPSET Verified 12/12/22 15:07 duloxetine Allergy Unknown lip Verified 12/12/22 15:07 swelling enalapril AdvReac Mild Nausea Verified 12/12/22 15:07 oxycodone AdvReac Mild NAUSEA Verified 12/12/22 15:07 pilocarpine AdvReac Mild Nausea Verified 12/12/22 15:07 [From [place] (pilocarpine)] Home Medications Medication Instructions Recorded Confirmed Type albuterol sulfate 90 mcg/actuation 2 puff inhalation Q6H PRN 04/19/21 01/01/23 Rx aerosol inhaler (ProAir HFA) shortness of breath or wheezing #8.5 grams Oxygen Home #2 ea 06/14/22 01/01/23 Rx ketoconazole 2 % topical cream 1 applic topical BID PRN as 08/15/22 01/01/23 History directed mupirocin 2 % topical ointment 1 applic topical TID PRN 08/15/22 01/01/23 Rx folliculitis #22 grams levothyroxine 137 mcg tablet 137 mcg PO QAM #30 tabs 10/31/22 01/01/23 Rx bupropion HCl 150 mg 24 hr tablet, 150 mg PO QAM #90 tabs 12/12/22 01/01/23 Rx extended release (Wellbutrin XL) mecobalamin (vitamin B12) 2,500 2,500 mcg PO DAILY #90 tabs 12/12/22 01/01/23 Rx mcg chewable tablet ropinirole 0.5 mg tablet 0.5 mg PO HS #90 tabs 12/14/22 01/01/23 Rx amitriptyline 50 mg tablet 25 mg PO HS 01/01/23 01/01/23 History Past Med/Surg History Medical History (Updated 01/02/23 @ 03:43 by Glenn Berman MD) Acute and chronic respiratory failure Acute bronchitis Acute on chronic respiratory failure with hypoxia and hypercapnia Cardiac murmur dx as child COPD exacerbation Depression DVT (deep venous thrombosis) right leg > several yrs ago > due to control pills Dyspnea on exertion Elevated white blood cell count Fall High blood pressure History of Lyme disease Hx of fall Hypothyroidism Intertrigo Leukocytosis Lumbar spondylosis Migraine hx of Morbid obesity with BMI of 50.0-59.9, adult Obesity hypoventilation syndrome Obesity hypoventilation syndrome Pain in right leg Physical deconditioning Respiratory distress Restless leg syndrome Right ankle injury Right foot injury Right leg swelling Right leg swelling Secondary pulmonary hypertension Sleep apnea no cpap SOB (shortness of breath) on exertion Tremor Tremor Vocal cord dysfunction Vocal cord dysfunction Wheezing Surgical History H/O tubal ligation H/O: hysterectomy History of colonoscopy History of dilatation and curettage x3 History of throat surgery vocal cord surgery History of tonsillectomy History of tooth extraction Hx of cholecystectomy Hx of right knee surgery arthroscopic Family History Father No problems noted. Mother Hypertension Hypothyroidism Denies family history of Ovarian cancer Breast cancer Colorectal cancer Uterine cancer Social History Smoking Status: Never smoker Second Hand Exposure: No; Do You Dip or Chew Tobacco: No; Hx Alcohol Use: No Hx Substance Use: No Preferred Language: Latvian Communication Ability: Effective Visual Impairment: No Limitations Hearing Ability: Normal Operations Manager Required: No Beliefs That Will Affect Care: None marital status: / Current Living Situation: Other Current Living Situation Comment: Lives w/ roommate current occupational status: retired Other Information That Helps Us Care for You: No Feels Safe at Home: Yes Safety Concerns: Feels Safe At This Time Childhood Exposure to Second-Hand Smoke: Yes Dental Care, Regularly: No Physical Activity Frequency: Does not Exercise Seatbelt Use: sometimes Sunscreen Use: No Assistive Devices: Oxygen - Continuous, Scooter/Electric Scooter and Walker Review of Systems Review of Systems: The patient denies chest pain, palpitations, lower extremity swelling, sore throat, fevers, chills, sweats, nausea, vomiting, diarrhea , constipation, abdominal pain, pelvic pain, blood in urine or stool, dysuria, urinary frequency or urgency, lightheadedness, dizziness, headache, memory loss, loss of consciousness, rash, abnormal bruising or bleeding, imbalance, focal weakness, numbness or tingling in arms or legs, generalized arthralgias or myalgias, back or neck pain, or night sweats. The review of systems is otherwise negative other than for that already noted above, and at least 10 systems have been reviewed. Physical Exam Physical Exam: The patient is awake, alert and oriented 3, well developed and well nourished, normocephalic and atraumatic, lying in bed and in no acute distress. HEENT--PERRL, EOMI, mucous membranes and oropharynx dry. Neck--supple. No JVD. No bruits. Thyroid normal, trachea midline, no adenopathy. Heart--normal S1 and S2. No murmurs, rubs or gallops. Lungs--coarse breath sounds bilaterally Abdomen--normal bowel sounds and soft. Nontender. Nondistended. Morbidly obese Extremities--no cyanosis or clubbing. No edema. Dermatologic--normal skin turgor, normal color, no abnormal lymph nodes, no rash. Neurologic--cranial nerves II through XII grossly intact. Rheumatologic--normal range of motion. Psychiatric--normal affect. Results & Data Results & Data Vital Signs (Past 12 Hours) Vital Signs Temp Pulse Resp BP Pulse Ox O2 Del Method O2 Flow Rate 01/01/23 18:45 94 Room Air 01/01/23 19:00 108 H 01/01/23 17:45 93 Nasal Cannula 3 01/01/23 17:41 36.4 C L 114 H 18 128/80 87 L Room Air Laboratory Results Laboratory Results WBC 16.72 K/ul (4.8-10.8) H 01/01/23 19:08 RBC 5.51 M/uL (4.20-5.40) H 01/01/23 19:08 Hgb 16.5 g/dl (12.0-16.0) H 01/01/23 19:08 Hct 50.7 % (37.0-47.0) H 01/01/23 19:08 MCV 92.0 fL (80.0-100.0) 01/01/23 19:08 MCH 29.9 pg (25.0-34.0) 01/01/23 19:08 MCHC 32.5 g/dL (32.0-36.0) 01/01/23 19:08 RDW Std Deviation 47.0 fL (36.4-46.3) H 01/01/23 19:08 RDW Coeff of Ly 13.7 % (11.5-14.5) 01/01/23 19:08 Plt Count 360 K/uL (130-400) 01/01/23 19:08 MPV 9.8 fL (9.4-12.4) 01/01/23 19:08 Immature Gran % (Auto) 1.0 % 01/01/23 19:08 Neut % (Auto) 72.1 % 01/01/23 19:08 Lymph % (Auto) 17.8 % 01/01/23 19:08 [place] % (Auto) 7.6 % 01/01/23 19:08 Eos % (Auto) 1.0 % 01/01/23 19:08 Baso % (Auto) 0.5 % 01/01/23 19:08 Neut # (Auto) 12.08 K/uL (1.40-6.50) H 01/01/23 19:08 Lymph # (Auto) 2.97 K/uL (1.2-3.4) 01/01/23 19:08 [place] # (Auto) 1.27 K/uL (0.11-0.59) H 01/01/23 19:08 Eos # (Auto) 0.16 K/uL (0-0.50) 01/01/23 19:08 Baso # (Auto) 0.08 K/uL (0-0.2) 01/01/23 19:08 Immature Gran # (Auto) 0.16 K/uL (0.01-0.20) 01/01/23 19:08 Absolute Nucleated RBC 0.02 K/uL (0-0.12) 01/01/23 19:08 Nucleated RBC % (auto) 0.1 % 01/01/23 19:08 PT 11.7 Seconds (9.0-12.0) 01/01/23 19:21 INR 1.1 (0.9-1.1) 01/01/23 19:21 APTT 29.0 Seconds (21.0-31.0) 01/01/23 19:21 PTT Ratio 1.0 01/01/23 19:21 Sodium 134 mmol/L (136-145) L 01/01/23 19:24 Potassium 3.7 mmol/L (3.5-5.1) 01/01/23 19:24 Chloride 93 mmol/L (98-107) L 01/01/23 19:08 Carbon Dioxide 33 mmol/L (21-32) H 01/01/23 19:08 Anion Gap TNP 01/01/23 19:08 BUN 8 mg/dl (6-23) 01/01/23 19:08 Creatinine 0.85 mg/dl (0.6-1.2) 01/01/23 19:08 Est Cr Clr Drug Dosing Not Reportable 01/01/23 19:08 Est GFR ( Amer) 83.3 ml/min 01/01/23 19:08 Est GFR (Non-Af Amer) 71.9 ml/min 01/01/23 19:08 BUN/Creatinine Ratio 9.4 (10-20) L 01/01/23 19:08 Glucose 107 mg/dl (70-99(Fasting)) H 01/01/23 19:08 Lactate 1.6 mmol/L (0.4-2.0) 01/01/23 19:08 Calcium 9.5 mg/dl (8.6-10.3) 01/01/23 19:08 Total Bilirubin 0.7 mg/dl (0.2-1.0) 01/01/23 19:08 AST 15 U/L (13-39) 01/01/23 19:24 ALT 13 U/L (7-52) 01/01/23 19:08 Alkaline Phosphatase 106 U/L (34-104) H 01/01/23 19:08 Troponin I High Sens 15.0 pg/ml (0-14) H 01/01/23 19:08 C-Reactive Protein 16.53 mg/dl (0-0.5) H 01/01/23 19:08 Total Protein 9.1 gm/dl (6.0-8.3) H 01/01/23 19:08 Albumin 4.2 gm/dl (3.4-5.0) 01/01/23 19:08 Globulin 4.9 gm/dl (2.5-4.0) H 01/01/23 19:08 Albumin/Globulin Ratio 0.9 (0.9-2) 01/01/23 19:08 Procalcitonin 0.11 ng/ml (0-0.5) 01/01/23 19:21 Urine Color Dark Yellow 01/01/23 Unknown Urine Appearance Cloudy (Clear) A 01/01/23 Unknown Urine pH 5.5 (4.5-7.5) 01/01/23 Unknown Ur Specific [place] 1.027 (1.000-1.030) 01/01/23 Unknown Urine Protein 1+ (Negative) H 01/01/23 Unknown Urine Glucose (UA) Negative (Negative) 01/01/23 Unknown Urine Ketones 1+ (Negative) H 01/01/23 Unknown Urine Blood 1+ (Negative) H 01/01/23 Unknown Urine Nitrite Positive (Negative) A 01/01/23 Unknown Urine Bilirubin 2+ (Negative) H 01/01/23 Unknown Urine Urobilinogen Negative (Negative) 01/01/23 Unknown Ur Leukocyte Esterase Trace (Negative) H 01/01/23 Unknown Urine WBC (Auto) 1-5 /hpf (0-5) 01/01/23 Unknown Urine RBC (Auto) 5-10 /hpf (0-4) H 01/01/23 Unknown U Hyaline Cast (Auto) 5-10 /lpf (0-5) H 01/01/23 Unknown U Epithel Cells (Auto) 10-20 /lpf (0-5) H 01/01/23 Unknown Urine Bacteria (Auto) 1+ (Negative) H 01/01/23 Unknown Urine Mucus Present (None Prsent) A 01/01/23 Unknown Urine Yeast Not Reportable 01/01/23 Unknown Adenovirus (PCR) Not Detected (NotDetected) 01/01/23 19:12 B. pertussis DNA (PCR) Not Detected (NotDetected) 01/01/23 19:12 B.parapertussis DNA PCR Not Detected (NotDetected) 01/01/23 19:12 C. pneumoniae DNA (PCR) Not Detected (NotDetected) 01/01/23 19:12 Coronavirus OC43 (PCR) Not Detected (NotDetected) 01/01/23 19:12 Coronavirus HKU1 (PCR) Not Detected (NotDetected) 01/01/23 19:12 Coronavirus 229E (PCR) Not Detected (NotDetected) 01/01/23 19:12 SARS-CoV-2 (PCR) Not Detected (NotDetected) 01/01/23 19:12 Coronavirus NL63 (PCR) Not Detected (NotDetected) 01/01/23 19:12 Human Metapneumovir PCR Not Detected (NotDetected) 01/01/23 19:12 Influenza Type A (PCR) Not Detected (NotDetected) 01/01/23 19:12 Influenza Type B (PCR) Not Detected (NotDetected) 01/01/23 19:12 M. pneumoniae (PCR) Not Detected (NotDetected) 01/01/23 19:12 Parainfluenza 1 (PCR) Not Detected (NotDetected) 01/01/23 19:12 Parainfluenza 2 (PCR) Not Detected (NotDetected) 01/01/23 19:12 Parainfluenza 3 (PCR) Not Detected (NotDetected) 01/01/23 19:12 Parainfluenza 4 (PCR) Not Detected (NotDetected) 01/01/23 19:12 RSV (PCR) Not Detected (NotDetected) 01/01/23 19:12 Entero/Rhino (PCR) Not Detected (NotDetected) 01/01/23 19:12 Impressions Chest X-Ray 01/01/23 17:46 XR chest 1V portable HISTORY: 67 years-old Female cough, SOB acute cough with shortness of breath COMPARISON: 05/08/2022, 02/25/2022 TECHNIQUE: AP view of the chest FINDINGS: Cardiac silhouette is enlarged. Chronic right diaphragmatic elevation with right basilar atelectasis. Gaseous distention of the stomach. No pneumothorax, pleural effusion, airspace consolidation or pulmonary edema. The bones of the chest appear grossly intact. IMPRESSION: No acute process. ACT 112: Negative or not required by law. The above report was generated using voice recognition software. It may contain grammatical, syntax or spelling errors. Electronically signed by: Claudio Choudhary M.D. 01/01/2023 6:39 PM Code Status & VTE Plan Code Status Full code VTE Prophylaxis Plan VTE Prophylaxis will be ordered: Yes PG Care Time/CCT Total # of Minutes Spent Total Time Spent with Patient: Total time spent is greater than 50% in coordination of care (as documented) at patient's floor/unit and/or counseling patient: Coding Level of Care Code 20689 INT INP/OBS CARE 3/75MIN Diagnoses Sleep apnea G47.30 Obesity hypoventilation syndrome E66.2 Acute on chronic respiratory failure with hypoxia and hypercapnia J96.21; J96.22 Vocal cord dysfunction J38.3 Secondary pulmonary hypertension CKD (chronic kidney disease) N18.9 Obesity, morbid, BMI 40.0-49.9 E66.01 Hypercholesterolemia E78.00 Essential hypertension I10 Depression F32.9 Primary hypothyroidism E03.9 Bronchitis J40 COPD exacerbation J44.1
[2023-01-01] MEDS ORDERED: ONDANSETRON INJ 2 MG/ML 2 ML VIAL IV PRN (22:37)
[2023-01-01] MEDS ORDERED: ACETAMINOPHEN 325 MG TAB PO PRN (22:37)
[2023-01-01] MEDS ORDERED: MUPIROCIN 2% OINT 22 GM TUBE TOP PRN (22:37)
[2023-01-01] MEDS: ENOXAPARIN INJ 40 MG/0.4 ML SYR SQ SCH (23:46)
[2023-01-01] MEDS: AZITHROMYCIN 500 MG in DEXTROSE 5% 250 ML IV SCH (23:47)
[2023-01-01 23:56] LABS: Appearance Urine Cloudy (Clear); Bacteria Urine Automated 1+ (Negative); Blood Urine 1+ (Negative); Color Urine Dark Yellow; Glucose Urine UA Negative (Negative); Ketones Urine 1+ (Negative); Leukocyte Esterase Urine Trace (Negative); Nitrite Urine Positive (Negative); Protein Urine 1+ (Negative); Specific Gravity Urine 1.027 (1.000-1.030); Urobilinogen Urine Negative (Negative); pH Urine 5.5 (4.5-7.5)
[2023-01-01 23:57] LABS: Bilirubin Urine 2+ (Negative)
[2023-01-02 00:08] LABS: Mucus Urine Present (None Prsent)
[2023-01-02] MEDS ORDERED: METOPROLOL TARTRATE 1 MG/ML VIAL IV ONE (00:44)
[2023-01-02] MEDS ORDERED: METOPROLOL TARTRATE 1 MG/ML VIAL IV STA (00:45)
[2023-01-02] MEDS: methylPREDNISolone 40 MG in SYRINGE 0 ML IV SCH ×3 (00:54→16:46)
[2023-01-02] MEDS: ALBUT/IPRATROP 3MG/0.5MG NEB 3 ML VIAL NEB SCH ×3 (01:54→10:30)
--- NOTE | 2023-01-02 02:33 | Communication Note ---
Date of Service: January 02, 2023 On arrival to unit, patient went into SVT with HR sustaining in 140s. Other than some wheezing she was asymptomatic. She was upgraded to PCU status and given 5mg IV lopressor. Converted back to sinus within minutes of administration. Resident Activity Tracking Resident Involvement: Resident Care Provided Care Provided: Adult [facility]
[2023-01-02 05:48] LABS: Basophils # (auto) 0.04 K/uL (0-0.2); Basophils % (auto) 0.3 %; Hematocrit (blood only) 45.5 % (37.0-47.0); Immature Granulocytes # (auto) 0.14 K/uL (0.01-0.20); Lymphocytes # (auto) 1.36 K/uL (1.2-3.4); Lymphocytes % (auto) 9.6 %; Mean Platelet Volume 9.7 fL (9.4-12.4); Monocytes # (auto) 0.31 K/uL (0.11-0.59); Monocytes % (auto) 2.2 %; Neutrophils # (auto) 12.27 K/uL (1.40-6.50); Neutrophils % (auto) 86.9 %; Platelet Count 329 K/uL (130-400); RDW Coefficient of Variation 13.8 % (11.5-14.5); RDW Standard Deviation 46.4 fL (36.4-46.3); White Blood Count 14.12 K/ul (4.8-10.8)
[2023-01-02 06:04] LABS: Albumin Level 3.8 gm/dl (3.4-5.0); BUN Creatinine Ratio 9.2 (10-20); Calcium 9.2 mg/dl (8.6-10.3); Creatinine Clr Calc Pharmacy 90.4 ml/min; Est GFR (Non-African American) 69.9 ml/min; Magnesium 1.9 mg/dl (1.7-2.4); Phosphorus 2.6 mg/dl (2.5-4.9)
[2023-01-02] MEDS: LEVOTHYROXINE SODIUM 137 MCG TABLET PO SCH (06:40)
[2023-01-02] MEDS ORDERED: ALBUT/IPRATROP 3MG/0.5MG NEB 3 ML VIAL NEB SCH (07:00)
[2023-01-02] MEDS: ENOXAPARIN INJ 40 MG/0.4 ML SYR SQ SCH ×2 (08:00→20:29)
[2023-01-02] MEDS: CYANOCOBALAMIN (B-12) 2,500 MCG TABLET PO SCH (08:00)
[2023-01-02] MEDS: buPROPion XL 150 MG TABCR PO SCH (08:00)
[2023-01-02] MEDS: guaiFENesin 600 MG TABCR PO SCH ×2 (08:00→20:28)
--- NOTE | 2023-01-02 12:25 | Hospitalist Progress Note ---
Date of Service January 02, 2023 Assessment & Plan (1) Acute on chronic respiratory failure with hypoxia and hypercapnia: Plan: Due to acute exacerbation of COPD Acute/stable - high risk - Continue Methylprednisolone 40mg IV q8 & Azithromycin 500mg IV daily x3 - Change Duonebs to Xopenex/Atrovent to prevent recurrence of SVT - Continue supplemental O2, goal pulse ox 88-92% - has been weaned back down to baseline O2 requirements which are 2L continuous - Continue Mucinex - CBC reviewed, mild leukocytosis appreciated, likely secondary to steroids - Minimal elevation of HS trop of 15, f/u 16, 3rd is pending. Suspect that this is due to myocardial demand ischemia in setting of aecopd/a/c resp failure (2) SVT (supraventricular tachycardia): Plan: Acute/stable/resolved - moderate risk - Isolated episode that occurred around 2am this morning - Terminated after dose of IV Lopressor ordered by overnight resident - Maintain PCU status today but suspect that this was induced from nebulized bronchodilator therapy - Change nebs as above (3) Obesity hypoventilation syndrome: Plan: Chronic/stable with associated SHANI - Continue CPAP at HS (4) Depression: Plan: Chronic/stable - Continue Amitriptyline and Bupropion (5) Primary hypothyroidism: Plan: Chronic/stable - Continue Levothyroxine (6) Asymptomatic bacteriuria: Plan: Acute/stable - Will not initiate antibiotic treatment given she is asymptomatic Plan CMP reviewed, glucose 150, likely due to steroids, CO2 33 (slightly hypercapnic) otherwise no gross abnormalities. Lovenox providing DVT ppx. AM labs have alr kedar been ordered. Anticipate probably home tomorrow. Plan has been d/w Dr. Lagunas. Admission and Anticipated Discharge Date Admission Date: January 01, 2023 Subjective Patient seen on daily rounds this morning. She is resting comfortably in bed, offers no complaints/concerns. She notes that her breathing seems better today. She was upgraded overnight to PCU d/t going into a run of SVT which terminated after a dose of IV Lopressor. She denies cp, dyspnea. She is back to her usual 2L of O2 which she wears at home. Cough is productive of green sputum. No fever/chills. Physical Exam Physical Exam: GENERAL: 67 yo morbidly obese F. AAOx4. NAD. LUNGS: Decreased air exchange. Nonlabored. Diminished breath sounds throughout. No wheezes/rhonchi. CARDIOVASCULAR: Regular rate and rhythm. ABDOMEN: Soft, non-tender and non-distended. Bowel sounds normoactive x 4 quad. EXTREMITIES: No edema. Non-tender. Peripheral pulses +2/4. Results & Data Results & Data Vital Signs (Past 12 Hours) Vital Signs Temp Pulse Pulse Resp BP BP Pulse Ox 01/02/23 10:30 83 18 94 01/02/23 08:37 01/02/23 07:57 36.7 C 84 20 114/68 93 01/02/23 07:21 79 01/02/23 06:53 78 18 97 01/02/23 01:30 83 20 113/85 94 01/02/23 03:00 36.7 C 88 20 107/73 95 01/02/23 01:55 85 18 96 01/02/23 01:48 01/02/23 01:21 90 01/02/23 00:52 82 102/70 01/02/23 00:45 148 H 113/77 01/02/23 00:40 113/77 01/02/23 00:20 144 H 18 114/74 96 O2 Del Method O2 Flow Rate 01/02/23 10:30 Nasal Cannula 2 01/02/23 08:37 Nasal Cannula 2 01/02/23 07:57 Nasal Cannula 2 01/02/23 07:21 01/02/23 06:53 Nasal Cannula 3 01/02/23 01:30 Nasal Cannula 2 01/02/23 03:00 Nasal Cannula 3 01/02/23 01:55 Nasal Cannula 2 01/02/23 01:48 Nasal Cannula 2 01/02/23 01:21 01/02/23 00:52 01/02/23 00:45 01/02/23 00:40 Nasal Cannula 01/02/23 00:20 Nasal Cannula 2 Laboratory Results 01/02/23 05:21 01/02/23 05:21 PG Care Time/CCT Total # of Minutes Spent Total Time Spent with Patient: Total time spent is greater than 50% in coordination of care (as documented) at patient's floor/unit and/or counseling patient: Coding Level of Care Code 61840 SUB INP/OBS CARE 3/50MIN Diagnoses Acute on chronic respiratory failure with hypoxia and hypercapnia J96.21; J96.22 SVT (supraventricular tachycardia) I47.1 Obesity hypoventilation syndrome E66.2 Depression F32.9 Primary hypothyroidism E03.9 Asymptomatic bacteriuria R82.71
[2023-01-02] MEDS ORDERED: XOPENEX/ATROVENT 0.63mg/0.5MG NEB COMBO NEB SCH (13:00)
--- NOTE | 2023-01-02 13:02 | XCELERA ---
[id number] \\[id number]
[2023-01-02] MEDS: IPRATROPIUM BROMIDE NEB SOLN 0.02% 2.5 ML VIAL INH SCH ×2 (13:04→19:19)
[2023-01-02] MEDS: LEVALBUTEROL HCL 0.63 MG/3 ML NEB NEB SCH ×2 (13:04→19:19)
--- NOTE | 2023-01-02 15:35 | Electrocardiogram Report ---
Test Reason : Blood Pressure : / mmHG Vent. Rate : 107 BPM Atrial Rate : 107 BPM P-R Int : 140 ms QRS Dur : 078 ms QT Int : 324 ms P-R-T Axes : 059 080 053 degrees QTc Int : 432 ms Sinus tachycardia Otherwise normal ECG When compared with ECG of 08-MAY-2022 08:30, No significant change was found Confirmed by Hardy Davies ([id number]) on 01/02/2023 3:35:13 PM Referred By: REFERRED SELF Confirmed By:Hardy Daveis
--- NOTE | 2023-01-02 15:39 | Electrocardiogram Report ---
Test Reason : Blood Pressure : / mmHG Vent. Rate : 142 BPM Atrial Rate : 163 BPM P-R Int : 000 ms QRS Dur : 084 ms QT Int : 290 ms P-R-T Axes : 000 070 -69 degrees QTc Int : 446 ms Poor data quality, interpretation may be adversely affected Sinus tachycardia Abnormal ECG When compared with ECG of 01-JAN-2023 18:56, (unconfirmed) T wave inversion now evident in Inferior leads T wave inversion now evident in Anterior leads Confirmed by Hardy Davies ([id number]) on 01/02/2023 3:38:44 PM Referred By: REFERRED SELF Confirmed By:Hardy Davies
--- NOTE | 2023-01-02 15:41 | Electrocardiogram Report ---
Test Reason : Blood Pressure : / mmHG Vent. Rate : 138 BPM Atrial Rate : 156 BPM P-R Int : 000 ms QRS Dur : 090 ms QT Int : 374 ms P-R-T Axes : 000 076 -31 degrees QTc Int : 566 ms Probable Multifocal atrial tachycardia Possible Inferior infarct , age undetermined Abnormal ECG When compared with ECG of 02-JAN-2023 00:02, (unconfirmed) Multifocal atrial tachycardia has replaced Sinus rhythm Confirmed by Hardy Davies ([id number]) on 01/02/2023 3:40:39 PM Referred By: REFERRED SELF Confirmed By:Hardy Davies
--- NOTE | 2023-01-02 15:46 | Electrocardiogram Report ---
Test Reason : Blood Pressure : / mmHG Vent. Rate : 084 BPM Atrial Rate : 084 BPM P-R Int : 156 ms QRS Dur : 090 ms QT Int : 392 ms P-R-T Axes : 048 069 050 degrees QTc Int : 463 ms Normal sinus rhythm Normal ECG When compared with ECG of 02-JAN-2023 00:27, (unconfirmed) Significant changes have occurred Confirmed by Hardy Davies ([id number]) on 01/02/2023 3:45:38 PM Referred By: REFERRED SELF Confirmed By:Hardy Davies
[2023-01-02] MEDS ORDERED: rOPINIRole HCL 0.25 MG TABLET PO SCH (21:00)
[2023-01-02] MEDS ORDERED: AMITRIPTYLINE HCL 25 MG TAB PO SCH (21:00)
[2023-01-03] MEDS ORDERED: COUGH DROP (SUGAR FREE) LOZ 24 LOZ/1 BOX BUCCAL ONE (00:31)
[2023-01-03] MEDS: AZITHROMYCIN 500 MG in DEXTROSE 5% 250 ML IV SCH (00:31)
[2023-01-03] MEDS: methylPREDNISolone 40 MG in SYRINGE 0 ML IV SCH ×2 (00:32→08:00)
[2023-01-03] MEDS: IPRATROPIUM BROMIDE NEB SOLN 0.02% 2.5 ML VIAL INH SCH ×3 (01:32→12:31)
[2023-01-03] MEDS: LEVALBUTEROL HCL 0.63 MG/3 ML NEB NEB SCH ×3 (01:32→12:31)
[2023-01-03] MEDS: LEVOTHYROXINE SODIUM 137 MCG TABLET PO SCH (04:48)
[2023-01-03 07:18] LABS: Basophils # (auto) 0.02 K/uL (0-0.2); Basophils % (auto) 0.1 %; Hematocrit (blood only) 42.9 % (37.0-47.0); Hemoglobin 14.3 g/dl (12.0-16.0); Immature Granulocytes % (auto) 1.1 %; Lymphocytes # (auto) 1.72 K/uL (1.2-3.4); Lymphocytes % (auto) 9.9 %; Mean Corpuscular Hemoglobin 29.7 pg (25.0-34.0); Mean Corpuscular Hgb Conc 33.3 g/dL (32.0-36.0); Mean Corpuscular Volume 89.2 fL (80.0-100.0); Mean Platelet Volume 9.7 fL (9.4-12.4); Monocytes # (auto) 0.67 K/uL (0.11-0.59); Monocytes % (auto) 3.9 %; Neutrophils # (auto) 14.79 K/uL (1.40-6.50); Platelet Count 344 K/uL (130-400); RDW Coefficient of Variation 13.6 % (11.5-14.5); RDW Standard Deviation 44.5 fL (36.4-46.3); Red Blood Count 4.81 M/uL (4.20-5.40)
[2023-01-03 07:38] LABS: Albumin Level 3.5 gm/dl (3.4-5.0); BUN Creatinine Ratio 21.6 (10-20); Calcium 9.6 mg/dl (8.6-10.3); Creatinine Clr Calc Pharmacy 108.6 ml/min; Est GFR (African American) 98.5 ml/min; Phosphorus 3.2 mg/dl (2.5-4.9); Potassium 3.9 mmol/L (3.5-5.1)
[2023-01-03] MEDS: CYANOCOBALAMIN (B-12) 2,500 MCG TABLET PO SCH (08:00)
[2023-01-03] MEDS: ENOXAPARIN INJ 40 MG/0.4 ML SYR SQ SCH (08:00)
[2023-01-03] MEDS: guaiFENesin 600 MG TABCR PO SCH (08:00)
[2023-01-03] MEDS: buPROPion XL 150 MG TABCR PO SCH (08:00)
--- NOTE | 2023-01-03 11:23 | Discharge Summary ---
Date of Service January 03, 2023 Admission HPI Per Admitting Provider The patient is a 67-year-old female with a past medical history including obesity hypoventilation syndrome, vocal cord dysfunction, secondary pulmonary hypertension, chronically elevated right hemidiaphragm, CKD, RLS, hy pothyroidism, morbid obesity, hypertension, SHANI and depression. She presents to the emergency department with several days of productive cough, shortness of breath and dyspnea on exertion worse than her baseline for which she follows with pulmonology Principal Diagnosis 1. Acute on chronic hypoxic/hypercapnic respiratory failure 2. AECOPD Discharge Exam GENERAL: 67 yo morbidly obese F. AAOx4. NAD. LUNGS: Nonlabored. Diminished breath sounds throughout. No wheezes/rhonchi. CARDIOVASCULAR: Regular rate and rhythm. ABDOMEN: Soft, non-tender and non-distended. Bowel sounds normoactive x 4 quad. EXTREMITIES: No edema. Non-tender. Peripheral pulses +2/4. Discharge Data Allergies Allergy/AdvReac Type Severity Reaction Status Date / Time doxycycline Allergy Unknown GI UPSET Verified 12/12/22 15:07 duloxetine Allergy Unknown lip Verified 12/12/22 15:07 swelling enalapril AdvReac Mild Nausea Verified 12/12/22 15:07 oxycodone AdvReac Mild NAUSEA Verified 12/12/22 15:07 pilocarpine AdvReac Mild Nausea Verified 12/12/22 15:07 [From [place] (pilocarpine)] Consultations 01/01/23 21:16 ED Decision to Admit Stat Ordered Studies Chest X-Ray 01/01/23 17:46 XR chest 1V portable HISTORY: 67 years-old Female cough, SOB acute cough with shortness of breath COMPARISON: 05/08/2022, 02/25/2022 TECHNIQUE: AP view of the chest FINDINGS: Cardiac silhouette is enlarged. Chronic right diaphragmatic elevation with right basilar atelectasis. Gaseous distention of the stomach. No pneumothorax, pleural effusion, airspace consolidation or pulmonary edema. The bones of the chest appear grossly intact. IMPRESSION: No acute process. ACT 112: Negative or not required by law. The above report was generated using voice recognition software. It may contain grammatical, syntax or spelling errors. Electronically signed by: Claudio Choudhary M.D. 01/01/2023 6:39 PM Echocardiogram Technically limited study. Left ventricular systolic function is normal. No regional wall motion abnormalities noted. There is mild concentric left ventricular hypertrophy. Ejection Fraction = 60-65% Compared with study from 05/12/22, no significant change Hospital Course (1) Acute on chronic respiratory failure with hypoxia and hypercapnia: Due to acute exacerbation of COPD - Treated with Methylprednisolone 40mg IV q8, Azithromycin 500mg IV daily (thus far received 2 doses), and Mucinex - Duonebs ordered on admit changed to Xopenex/Atrovent to prevent recurrence of SVT - Initially with increased supplemental O2 requirements - has been weaned back down to baseline O2 requirements which are 2L continuous - emphasized goal pulse ox 88-92% - CBC reviewed, mild leukocytosis appreciated, likely secondary to steroids - Minimal elevation of HS trop of 15, f/u 16, 3rd is pending. Suspect that this is due to myocardial demand ischemia in setting of aecopd/a/c resp failure - Echo performed for completeness which was without any gross abnormalities (2) SVT (supraventricular tachycardia): Acute/stable/resolved - moderate risk - Isolated episode that occurred around 2am this morning - Terminated after dose of IV Lopressor ordered by overnight resident - Maintained PCU status but it was suspected that this was induced from nebulized bronchodilator therapy - She has had no further recurrence - Change nebs as above (3) Obesity hypoventilation syndrome: Chronic/stable with associated SHANI - Continue O2, does not appear that she is utilizing NIPPV at HS (4) Depression: Chronic/stable - Continue Amitriptyline and Bupropion (5) Primary hypothyroidism: Chronic/stable - Continue Levothyroxine (6) Asymptomatic bacteriuria: Acute/stable - Will not initiate antibiotic treatment given she is asymptomatic Plan Patient is medically and hemodynamically stable for discharge home today. Complete course of antibiotics and steroids as directed. Recommend follow up with PCP within 1 week or sooner if needed. Above plan of care has been d/w Dr. Larson who is in agreement with aforementioned. Total Time Total Time Spent Total Time Spent (In Minutes): 35 minutes Discharge Plan Discharge Items Patient Disposition: Home - Self-Care Reason For Visit: ACUTE ON CHRONIC RESP FAILURE WITH HYPOXIA Discharge Diagnosis: exacerbation of chronic lung disease Activity: Resume your previous activity Non-emergency contact: Primary Care Provider Call non-emergency contact if: you have any medication questions and your symptoms worsen Follow-up/Referrals: Balabanova-Tsarnakov,Ralitsa V., MD [Primary Care Provider] - Diet: Regular Addtl Attending Provider Instructions: You were hospitalized due to worsening of your breathing likely due to an exacerbation of your chronic lung disease. On admission, your oxygen level was slightly lower than your baseline and you were requiring more oxygen than usual. You were treated with antibiotics, breathing treatments, and steroids and have responded favorably. At this time, you have been weaned back to your usual amount of oxygen which is 2 liters. Please keep in mind that your goal oxygen level is to stay between 89- 92% to prevent worsening respiratory status. You are being discharged home on Zithromax 500mg (an antibiotic), take your last tablet tomorrow morning (01/04). You are also being sent home on a steroid called Prednisone. You will start this tomorrow morning as well (01/04). Please take 2 tablets daily for 5 days. Take with food to minimize an upset stomach. You may take Tessalon perles up to 3 times per day as needed for cough. Lastly, you are also being prescribed medicine to use in your nebulizer. You can continue to use this medication up to 4 times per day over the next 48 to 72 hours. After that, I would recommend using only as needed. You will need to follow up with your family doctor within 1 week of discharge. If you have any questions following your discharge, you may call the nonemergency contact number listed on your discharge. In the event of a medical emergency, call 911. Pending Studies at Discharge: No Stand-Alone Forms: My [facility], Smoking Cessation Medications and DC Order Prescriptions: New levalbuterol HCl 0.63 mg/3 mL Solution For Nebulization 0.63 mg NEB Q6R PRN (Reason: shortness of breath or wheezing) Qty: 100 0RF azithromycin [Zithromax] 500 mg tablet 500 mg PO DAILY Qty: 1 0RF prednisone 20 mg tablet 40 mg PO DAILY 5 Days Qty: 10 0RF benzonatate 100 mg capsule 100 mg PO TID PRN (Reason: cough) Qty: 20 0RF Continued albuterol sulfate [ProAir HFA] 90 mcg/actuation HFA aerosol inhaler 2 puff INH Q6H PRN (Reason: shortness of breath or wheezing) Qty: 8.5 1RF levothyroxine 137 mcg tablet 137 mcg PO QAM Qty: 30 5RF ropinirole 0.5 mg tablet 0.5 mg PO HS Qty: 90 1RF (DME) Oxygen Home Liters Per Minute See Rx Instructions .Route Qty: 2 0RF Rx Instructions: 2 l /NC /24/7 ketoconazole 2 % cream 1 applic topical BID PRN (Reason: as directed) mupirocin 2 % ointment 1 applic topical TID PRN (Reason: folliculitis) Qty: 22 0RF mecobalamin (vitamin B12) 2,500 mcg tablet,chewable 2,500 mcg PO DAILY Qty: 90 0RF bupropion HCl [Wellbutrin XL] 150 mg tablet extended release 24 hr 150 mg PO QAM Qty: 90 3RF amitriptyline 50 mg tablet 25 mg PO HS Rx Instructions: 1/2 tablet dose Discharge Orders: Discharge Order (Routine); Ordered 01/03/23 Ordered By: Jennifer Tony Admission Data Admit Date/Time: 01/01/23 21:34 Attending Provider: Mir Larson Admit Provider: Glenn Berman Primary Care Provider: Salome Snyder V. Other Providers: Glenn Bemran Coding Level of Care Code 32658 INP/OBS DISCH >30 MIN Diagnoses Acute on chronic respiratory failure with hypoxia and hypercapnia J96.21; J96.22 SVT (supraventricular tachycardia) I47.1 Obesity hypoventilation syndrome E66.2 Depression F32.9 Primary hypothyroidism E03.9 Asymptomatic bacteriuria R82.71
--- NOTE | 2023-01-03 13:52 | Electrocardiogram Report ---
Test Reason : Blood Pressure : / mmHG Vent. Rate : 081 BPM Atrial Rate : 081 BPM P-R Int : 148 ms QRS Dur : 092 ms QT Int : 404 ms P-R-T Axes : 071 078 058 degrees QTc Int : 469 ms Normal sinus rhythm Normal ECG When compared with ECG of 02-JAN-2023 06:41, No significant change was found Confirmed by Hardy Davies ([id number]) on 01/03/2023 1:52:04 PM Referred By: REFERRED SELF Confirmed By:Hardy Davies
[2023-01-04 12:13] LABS: A calco-baum cmplx NotReported Not Detected (NotDetected); Bact fragilis Not Reported Not Detected (NotDetected); C auris Not Reported Not Detected (NotDetected); Calbicans Not Reported Not Detected (NotDetected); Candida glabrata Not Reported Not Detected (NotDetected); Candida krusei Not Reported Not Detected (NotDetected); Cneoformans/gatti Not Reported Not Detected (NotDetected); Cparapsilosis Not Reported Not Detected (NotDetected); Ctropicalis Not Reported Not Detected (NotDetected); E cloacae compx Not Reported Not Detected (NotDetected); Efaecalis Not Reported Not Detected (NotDetected); Efaecium Not Reported Not Detected (NotDetected); Enterobacterales Not Reported Not Detected (NotDetected); Escherichia coli Not Reported Not Detected (NotDetected); H influenzae Not Reported Not Detected (NotDetected); K aerogenes Not Reported Not Detected (NotDetected); Koxytoca Not Reported Not Detected (NotDetected); Kpneumoniae grp Not Reported Not Detected (NotDetected); Lmonocyt Not Reported Not Detected (NotDetected); N meningitidis Not Reported Not Detected (NotDetected); P aeruginosa Not Reported Not Detected (NotDetected); Proteus spp Not Reported Not Detected (NotDetected); Salmonella spp Not Reported Not Detected (NotDetected); Smarcescens Not Reported Not Detected (NotDetected); Staph lugdunensis Not Reported Not Detected (NotDetected); Staph spp. Not Reported Not Detected (NotDetected); Staphaureus Not Reported Not Detected (NotDetected); Staphepi Not Reported Not Detected (NotDetected); Stenmaltophilia Not Reported Not Detected (NotDetected); Strep agal(GrpB) Not Reported Not Detected (NotDetected); Strep pneum Not Reported Not Detected (NotDetected); Strep pyog (GrpA) Not Reported Not Detected (NotDetected); Strep spp Not Reported Not Detected (NotDetected)
== END 2023-01-03 13:15 | disposition home or self-care (01) | DRG 189 ==
LOC: ED 17:33 → SUATTDRO 21:34 → 2N 21:34 → 2E 01-02 01:15
DX: Z20.822 Contact with and (suspected) exposure to COVID-19; Z88.5 Allergy status to narcotic agent; N18.9 Chronic kidney disease, unspecified; Z88.8 Allergy status to other drugs, medicaments and biological substances; I47.1 Supraventricular tachycardia; E03.9 Hypothyroidism, unspecified; Z87.01 Personal history of pneumonia (recurrent); R82.71 Bacteriuria; Z79.890 Hormone replacement therapy; J96.22 Acute and chronic respiratory failure with hypercapnia; I12.9 Hypertensive chronic kidney disease with stage 1 through stage 4 chronic kidney disease, or unspecified chronic kidney disease; Z86.718 Personal history of other venous thrombosis and embolism; J96.21 Acute and chronic respiratory failure with hypoxia; F32.A Depression, unspecified; G25.81 Restless legs syndrome; E78.00 Pure hypercholesterolemia, unspecified; Z99.81 Dependence on supplemental oxygen; Z68.43 Body mass index [BMI] 50.0-59.9, adult; I24.8 Other forms of acute ischemic heart disease; Z88.1 Allergy status to other antibiotic agents; E66.2 Morbid (severe) obesity with alveolar hypoventilation; I27.20 Pulmonary hypertension, unspecified; Z79.899 Other long term (current) drug therapy; J44.1 Chronic obstructive pulmonary disease with (acute) exacerbation; J38.3 Other diseases of vocal cords; E53.8 Deficiency of other specified B group vitamins